=== PATIENT | female | born 1940 | race Two or more races ===

== ENCOUNTER 2016-09-03 19:15 | Inpatient (IN) | payer MEDICARE ==
--- NOTE | 2016-09-03 19:32 | ER Document Report ---
ED Medical Screen (RME) - General Stated Complaint: FEVER,CHEST PAIN Notes: 75 yo female c/o midsternal chest pain, short of breath x 3 days, worse today. + fever 102 toay. + cough + laryngitis + HTN, + COPD no DM, nonsmoker, no cardiac hx PCM - Dr Kent TRAVEL OUTSIDE OF THE [place] IN LAST 30 DAYS: No - Related Data Allergies/Adverse Reactions: Penicillins Allergy (Verified 06/07/16 18:02) Past Medical History - Past Medical History Cardiac Medical History: Reports: Hx Hypertension Denies: Hx Coronary Artery Disease, Hx Heart Attack Pulmonary Medical History: Reports: Hx COPD, Hx Pneumonia Denies: Hx Asthma, Hx Bronchitis, Hx Tuberculosis Neurological Medical History: Denies: Hx Cerebrovascular Accident, Hx Seizures Musculoskeltal Medical History: Reports Hx Arthritis Psychiatric Medical History: Denies: Hx Depression Past Surgical History: Reports: Hx Cholecystectomy, Hx Hysterectomy - Immunizations Hx Diphtheria, Pertussis, Tetanus Vaccination: No
[2016-09-03] MEDS ORDERED: ASPIRIN 81 MG TABLET, CHEWABLE PO ONE (19:33)
[2016-09-03 20:27] LABS: ABSOLUTE EOSINOPHILS # (AUTO) 0.2 10^3/uL (0.0-0.6); ABSOLUTE LYMPHOCYTES (AUTO) 1.4 10^3/uL (0.5-4.7); ABSOLUTE MONOCYTES (AUTO) 0.9 10^3/uL (0.1-1.4); ABSOLUTE NEUT (AUTO) 5.9 10^3/uL (1.7-8.2); BASOPHILS % (AUTO) 0.5 % (0-2); EOSINOPHILS % (AUTO) 1.8 % (0-6); HEMATOCRIT 39.9 % (36.0-47.0); HEMOGLOBIN 13.6 g/dL (12.0-15.5); HGB HCT DIFFERENCE 0.9; LYMPHOCYTES % (AUTO) 16.7 % (13-45); MEAN CORPUSCULAR HGB CONC 34.2 g/dL (32.0-36.0); MEAN CORPUSCULAR VOLUME 88 fl (80-97); MONOCYTES % (AUTO) 10.3 % (3-13); RED BLOOD COUNT 4.55 10^6/uL (3.72-5.28); RED CELL DISTRIBUTION WIDTH 14.6 % (11.5-14.0); SEGMENTED NEUTROPHILS % (AUTO) 70.7 % (42-78); WHITE BLOOD COUNT 8.3 10^3/uL (4.0-10.5)
[2016-09-03 20:39] LABS: APPEARANCE,URINE CLEAR; BILIRUBIN,URINE NEGATIVE (NEGATIVE); GLUCOSE, URINE NEGATIVE (NEGATIVE); KETONES,URINE NEGATIVE (NEGATIVE); LEUKOCYTE ESTERASE,URINE NEGATIVE (NEGATIVE); NITRITE,URINE NEGATIVE (NEGATIVE); PROTEIN,URINE NEGATIVE (NEGATIVE); URINE SPECIFIC GRAVITY 1.013
[2016-09-03 20:50] LABS: ALANINE AMINOTRANSFERASE 20 U/L (9-52); ALBUMIN 3.8 g/dL (3.5-5.0); ALKALINE PHOSPHATASE 109 U/L (38-126); ANION GAP 11 (5-19); ASPARTATE AMINO TRANSFERASE 17 U/L (14-36); BILIRUBIN,TOTAL 0.5 mg/dL (0.2-1.3); BLOOD UREA NITROGEN 11 mg/dL (7-20); CALCIUM 9.3 mg/dL (8.4-10.2); CARBON DIOXIDE 26 mmol/L (22-30); CHLORIDE 103 mmol/L (98-107); CREATINE KINASE 34 U/L (30-135); GLUCOSE 93 mg/dL (75-110); LIPASE 56.6 U/L (23-300); POTASSIUM 3.7 mmol/L (3.6-5.0); SODIUM 140.1 mmol/L (137-145); TOTAL PROTEIN 6.5 g/dL (6.3-8.2)
[2016-09-03 21:09] LABS: CREATINE KINASE MB 0.38 ng/mL (<4.55)
[2016-09-03 21:15] LABS: TROPONIN I < 0.012 ng/mL
--- NOTE | 2016-09-03 21:40 | EKG REPORT ---
SEVERITY:- NORMAL ECG - SINUS RHYTHM : Confirmed by: Rob Mace 03-Sep-2016 21:39:37
[2016-09-04] MEDS ORDERED: CEFTRIAXONE 1 GM/D5W RTU 50 ML IV ONE (01:24)
[2016-09-04] MEDS ORDERED: NORMAL SALINE 1000 ML 1,000 ML IV ONE (01:25)
[2016-09-04] MEDS ORDERED: LEVOFLOXACIN 750 MG/D5W RTU 150 ML IV ONE (01:25)
--- NOTE | 2016-09-04 01:35 | ER Document Report ---
ED General - General Chief Complaint: Fever Stated Complaint: FEVER, cough Notes: Patient is a 75-year-old female with past medical history of COPD who presents with 4 days of fever, cough, sputum production and increasing shortness of breath. States that she went to the sick clinic at her primary care doctor's office today was sent to the emergency room based on her overall appearance. States she's had similar symptoms in the past when she has had pneumonia. She has had one episode of nonbilious vomiting at home but has otherwise been able to tolerate oral intake. She denies any focal abdominal pain. She does not normally use home oxygen. She is not using to treat her symptoms and has not noted anything worsen her symptoms. Multiple sick contacts. TRAVEL OUTSIDE OF THE [place] IN LAST 30 DAYS: No - Related Data Allergies/Adverse Reactions: Penicillins Allergy (Verified 09/03/16 19:33) Past Medical History - General Information source: Patient, Relative - Social History Smoking Status: Never Smoker Chew tobacco use (# tins/day): No Frequency of alcohol use: None Drug Abuse: None Lives with: Family Family History: Reviewed & Not Pertinent Patient has suicidal ideation: No Patient has homicidal ideation: No - Past Medical History Cardiac Medical History: Reports: Hx Hypertension Denies: Hx Coronary Artery Disease, Hx Heart Attack Pulmonary Medical History: Reports: Hx COPD, Hx Pneumonia Denies: Hx Asthma, Hx Bronchitis, Hx Tuberculosis Neurological Medical History: Denies: Hx Cerebrovascular Accident, Hx Seizures Renal/ Medical History: Denies: Hx Peritoneal Dialysis Musculoskeltal Medical History: Reports Hx Arthritis Psychiatric Medical History: Denies: Hx Depression Past Surgical History: Reports: Hx Cholecystectomy, Hx Hysterectomy - Immunizations Hx Diphtheria, Pertussis, Tetanus Vaccination: No Hx Pneumococcal Vaccination: 12/27/12 Review of Systems - Review of Systems Notes: Constitutional: Positive for fever. HENT: Negative for sore throat. Eyes: Negative for visual changes. Cardiovascular: Negative for chest pain. Respiratory: Positive for shortness of breath and cough Gastrointestinal: Negative for abdominal pain, positive for vomiting Genitourinary: Negative for dysuria. Musculoskeletal: Negative for back pain. Skin: Negative for rash. Neurological: Negative for headaches, weakness or numbness. 10 point ROS negative except as marked above and in HPI. Physical Exam - Vital signs Vitals: Temp Pulse Resp BP Pulse Ox 99.7 F 88 22 H 148/81 H 95 03/08/17 19:30 09/03/16 19:30 09/03/16 19:30 09/03/16 19:30 09/03/16 19:30 Interpretation: Tachypneic Notes: PHYSICAL EXAMINATION: GENERAL: Mildly ill in appearance but in no acute distress. HEAD: Atraumatic, normocephalic. EYES: Pupils equal round and reactive to light, extraocular movements intact, sclera anicteric, conjunctiva are normal. ENT: nares patent, oropharynx clear without exudates. Moderately dry mucous membranes. NECK: Normal range of motion, supple without lymphadenopathy, no nuchal rigidity LUNGS: Diminished breath sounds left base. No respiratory distress. Appropriate air movement bilaterally. No wheezing. HEART: Regular rate and rhythm without murmurs ABDOMEN: Soft, nontender, normoactive bowel sounds. No guarding, no rebound. No masses appreciated. EXTREMITIES: Normal range of motion, no pitting or edema. No cyanosis. NEUROLOGICAL: No focal neurological deficits. Moves all extremities spontaneously and on command. PSYCH: Normal mood, normal affect. SKIN: Warm, Dry, normal turgor, no rashes or lesions noted. Course - Re-evaluation Re-evalutation: 09/04/16 01:32 Patient presents with signs and symptoms that are consistent with likely community-acquired pneumonia. Patient has diminished breath sounds at the left lower base, has had mild tachypnea as well as cough at home. She is also had a fever up to 102.2. Although chest x-ray is clear here diagnostically her presentation appears the most consistent with a pneumonia versus influenza. Influenza testing is pending at this time. She is not have any nuchal rigidity on exam, no altered mental status although does complain of a mild headache. Given the absence of any significant neck pain, full neck range of motion, 4 days of symptoms, and a normal mental status a do not suspect an acute encephalitis or bacterial meningitis. Patient's urinalysis is clear. She does not have any skin findings to suggest a cellulitis as a source of her fever. Patient could alternatively have a community-acquired virus although given her reported fever to 102.2 as well as her overall mildly ill appearance, I believe this to be a diagnosis of occlusion. Patient has been started empirically on ceftriaxone and levofloxacin. I had discussed this case with the patient's primary care doctor Dr. Ayers will admit the patient - Vital Signs Vital signs: Temp Pulse Resp BP Pulse Ox 99.7 F 88 18 149/61 H 95 09/03/16 19:30 09/03/16 19:30 09/04/16 03:01 09/04/16 03:01 09/04/16 03:01 - Laboratory Result Diagrams: 09/03/16 20:05 09/03/16 20:05 Laboratory results interpreted by me: 09/03/16 09/03/16 20:05 20:05 RDW 14.6 H Urine Blood SMALL H Urine Urobilinogen 2.0 H - Diagnostic Test Radiology reviewed: Image reviewed, Reports reviewed Radiology results interpreted by me: 09/04/16 01:32 Chest x-ray: No acute infiltrate - EKG Interpretation by Me Additional EKG results interpreted by me: 09/04/16 01:34 Normal sinus rhythm. Rate 89. No ST elevations or depressions. QTC 421 Discharge - Discharge Clinical Impression: Fever Qualifiers: Fever type: unspecified Qualified Code(s): R50.9 - Fever, unspecified Pneumonia Qualifiers: Pneumonia type: due to unspecified organism Laterality: unspecified laterality Lung location: unspecified part of lung Qualified Code(s): J18.9 - Pneumonia, unspecified organism Disposition: ADMITTED INPATIENT Admitting Provider: [facility] Admitted: Telemetry
[2016-09-04] MEDS ORDERED: KETOROLAC TROMETHAMINE INJ/PF 30 MG/1 ML SDV IV ONE (02:37)
[2016-09-04 06:29] LABS: CREATINE KINASE MB < 0.22 ng/mL (<4.55); TROPONIN I < 0.012 ng/mL
[2016-09-04 06:41] LABS: THYROID STIMULATING HORMONE 3.63 uIU/mL (0.47-4.68)
[2016-09-04] MEDS: ENOXAPARIN SODIUM INJ 40 MG/0.4 ML DISP.SYRIN SUBCUT SCH (09:18)
[2016-09-04] MEDS: NORMAL SALINE 1000 ML 1,000 ML IV PRN ×2 (09:30→22:00)
[2016-09-04] MEDS: ALBUTEROL SULFATE 0.083% NEB 2.5 MG/3 ML AMPUL NEB PRN (10:59)
[2016-09-04 12:32] LABS: CREATINE KINASE MB 0.32 ng/mL (<4.55)
[2016-09-04 12:34] LABS: TROPONIN I < 0.012 ng/mL
[2016-09-04] MEDS ORDERED: ACETAMINOPHEN 325 MG TABLET PO PRN (12:35)
[2016-09-04] MEDS ORDERED: BUTALB/ACETAMINOPHEN/CAFFEINE 1 TAB EACH PO PRN (14:27)
[2016-09-04] MEDS ORDERED: LISINOPRIL 10 MG TABLET PO ONE (15:00)
[2016-09-04] MEDS: ALBUTEROL SULFATE 0.083% NEB 2.5 MG/3 ML AMPUL NEB SCH ×4 (17:15→23:54)
[2016-09-04] MEDS: METHYLPREDNISOLONE INJ 125 MG/2 ML SDV IV SCH (18:12)
[2016-09-04 18:27] LABS: CREATINE KINASE MB 0.36 ng/mL (<4.55)
[2016-09-04 18:28] LABS: TROPONIN I < 0.012 ng/mL
[2016-09-04 18:45] LABS: ARTERIAL BLOOD BASE EXCESS 2.1 mmol/L
--- NOTE | 2016-09-04 19:14 | PDOC H&P ---
History of Present Illness Admission Date/PCP: 09/04/16 04:52 HIPOLITO MCKEON MD History of Present Illness: ALEJANDRO MINOR is a 75 year old female with history of COPD, she came to emergency room last night because of fever, cough, shortness of breath in the emergency room she was evaluated and after admission was advised. When I saw her on the floor she was audibly wheezing with shortness of breath and she was using accessory muscles of respiration to breathe a stat ABG was done on 2 L and it showed pH 7.4 PCO2 45, bicarbonate 27.4 this is consistent with a mixed acid-base disorder. Past Medical History Cardiac Medical History: Reports: Hypertension Pulmonary Medical History: Reports: Chronic Obstructive Pulmonary Disease (COPD) , Pneumonia Musculoskeltal Medical History: Reports: Arthritis Past Surgical History Past Surgical History: Reports: Cholecystectomy, Hysterectomy Social History Lives with: Family Smoking Status: Former Smoker Last Time Smoked: September 06, 2015 Frequency of Alcohol Use: None Hx Recreational Drug Use: No Drugs: None Hx Prescription Drug Abuse: No Family History Family History: Reviewed & Not Pertinent Parental Family History Reviewed: Yes Children Family History Reviewed: Yes Sibling(s) Family History Reviewed.: Yes Medication/Allergy Home Medications: Lisinopril [Prinivil 40 mg Tablet] 40 mg PO DAILY 09/04/16 Allergies/Adverse Reactions: Penicillins Allergy (Verified 09/03/16 19:33) Review of Systems Constitutional: PRESENT: fever(s) Eyes: ABSENT: visual disturbances Ears: ABSENT: hearing changes Cardiovascular: PRESENT: dyspnea on exertion Respiratory: ABSENT: cough, hemoptysis Gastrointestinal: ABSENT: abdominal pain, constipation, diarrhea, hematemesis, hematochezia, nausea, vomiting Genitourinary: ABSENT: dysuria, hematuria Musculoskeletal: ABSENT: joint swelling Integumentary: ABSENT: rash, wounds Neurological: ABSENT: abnormal gait, abnormal speech, confusion, dizziness, focal weakness, syncope Psychiatric: ABSENT: anxiety, depression, homidical ideation, suicidal ideation Endocrine: ABSENT: cold intolerance, heat intolerance, menstrual abnormalities, polydipsia, polyuria Hematologic/Lymphatic: ABSENT: easy bleeding, easy bruising, lymphadenopathy Physical Exam Vital Signs: Temp Pulse Resp BP Pulse Ox 97.6 F 84 20 138/68 H 97 09/04/16 15:12 09/04/16 17:15 09/04/16 17:15 09/04/16 15:12 09/04/16 17:15 Intake & Output 09/03/16 09/04/16 09/05/16 06:59 06:59 06:59 Intake Total 1039 Balance 1039 Weight 64.5 kg General appearance: PRESENT: severe distress Head exam: PRESENT: atraumatic, normocephalic Eye exam: PRESENT: conjunctiva pink, EOMI, PERRLA Ear exam: PRESENT: normal external ear exam Mouth exam: PRESENT: moist, tongue midline Neck exam: PRESENT: full ROM Respiratory exam: PRESENT: accessory muscle use, wheezes Cardiovascular exam: PRESENT: RRR Pulses: PRESENT: normal dorsalis pedis pul, +2 pedal pulses bilateral Vascular exam: PRESENT: normal capillary refill GI/Abdominal exam: PRESENT: normal bowel sounds, soft Rectal exam: PRESENT: deferred Neurological exam: PRESENT: alert, awake, oriented to person, oriented to place , oriented to time, oriented to situation, CN II-XII grossly intact Psychiatric exam: PRESENT: appropriate affect, normal mood. ABSENT: homicidal ideation, suicidal ideation Skin exam: PRESENT: dry, intact, warm Results Laboratory Results: 09/04/16 09/04/16 05:30 18:09 Carbonic Acid 1.36 H HCO3/H2CO3 Ratio 20:1 ABG pH 7.40 ABG pCO2 45.3 H ABG pO2 81.6 ABG HCO3 27.4 H ABG O2 Saturation 96.0 ABG Base Excess 2.1 FiO2 2L TSH 3.63 Free T4 1.48 09/04/16 09/04/16 09/04/16 05:30 05:30 11:30 Creatine Kinase 34 32 CK-MB (CK-2) < 0.22 Troponin I < 0.012 09/04/16 09/04/16 09/04/16 11:30 17:25 17:25 Creatine Kinase 32 CK-MB (CK-2) 0.32 0.36 Troponin I < 0.012 < 0.012 Impressions: Chest X-Ray 09/03/16 19:34 IMPRESSION: No significant interval change. No acute findings. Other findings as noted above Chest CT 09/04/16 00:00 IMPRESSION: Multiple segmental and subsegmental bronchi show debris-mucous plugging in the right lower lobe. Small areas of parenchymal atelectasis- airspace disease are present in the posterior basilar segments. Some scattered ground-glass markings are scattered in each lung. No dense consolidation. Trace right effusion. Assessment & Plan - Diagnosis (1) Acute exacerbation of chronic obstructive pulmonary disease (COPD) Plan: Patient is obviously in respiratory distress with shortness of breath wheezing she also have fever does suggest infection, though the chest x-ray and CT chest was negative for pneumonia, she will be treated with antibiotic, IV Solu-Medrol and also bronchodilators
[2016-09-05] MEDS: METHYLPREDNISOLONE INJ 125 MG/2 ML SDV IV SCH ×3 (01:31→17:35)
[2016-09-05] MEDS ORDERED: DILTIAZEM HCL/D5W 125 MG/125 ML RTUINJ IV ONE (02:17)
[2016-09-05] MEDS: ALBUTEROL SULFATE 0.083% NEB 2.5 MG/3 ML AMPUL NEB SCH ×6 (02:28→20:29)
[2016-09-05] MEDS ORDERED: DILTIAZEM HCL/D5W 125 MG/125 ML RTUINJ IV PRN (02:43)
[2016-09-05] MEDS: MAG HYDROX/AL HYDROX/SIMETH SUSP 30 ML UDCUP PO PRN ×4 (02:51→23:49)
[2016-09-05 05:58] LABS: ABSOLUTE LYMPHOCYTES (AUTO) 0.4 10^3/uL (0.5-4.7); ABSOLUTE MONOCYTES (AUTO) 0.1 10^3/uL (0.1-1.4); ABSOLUTE NEUT (AUTO) 6.4 10^3/uL (1.7-8.2); HEMATOCRIT 38.7 % (36.0-47.0); HEMOGLOBIN 12.9 g/dL (12.0-15.5); LYMPHOCYTES % (AUTO) 5.3 % (13-45); MEAN CORPUSCULAR HEMOGLOBIN 29.4 pg (27.0-33.4); MEAN CORPUSCULAR HGB CONC 33.4 g/dL (32.0-36.0); MEAN CORPUSCULAR VOLUME 88 fl (80-97); MONOCYTES % (AUTO) 1.3 % (3-13); RED CELL DISTRIBUTION WIDTH 14.7 % (11.5-14.0); SEGMENTED NEUTROPHILS % (AUTO) 93.4 % (42-78); WHITE BLOOD COUNT 6.8 10^3/uL (4.0-10.5)
[2016-09-05 06:18] LABS: ALANINE AMINOTRANSFERASE 24 U/L (9-52); ALBUMIN 3.3 g/dL (3.5-5.0); ALKALINE PHOSPHATASE 97 U/L (38-126); ANION GAP 11 (5-19); ASPARTATE AMINO TRANSFERASE 15 U/L (14-36); BILIRUBIN,TOTAL 0.3 mg/dL (0.2-1.3); BLOOD UREA NITROGEN 9 mg/dL (7-20); CALCIUM 9.5 mg/dL (8.4-10.2); CARBON DIOXIDE 22 mmol/L (22-30); CHLORIDE 109 mmol/L (98-107); CREATININE RESULT 0.52 mg/dL (0.52-1.25); GLUCOSE 191 mg/dL (75-110); POTASSIUM 3.8 mmol/L (3.6-5.0); SODIUM 142.1 mmol/L (137-145)
[2016-09-05] MEDS: LISINOPRIL 10 MG TABLET PO SCH (09:09)
[2016-09-05] MEDS: LEVOFLOXACIN 750 MG/D5W RTU 750 MG/150 ML RTUPB IV SCH (09:09)
[2016-09-05] MEDS: ENOXAPARIN SODIUM INJ 40 MG/0.4 ML DISP.SYRIN SUBCUT SCH (09:14)
--- NOTE | 2016-09-05 19:37 | EKG REPORT ---
SEVERITY:- ABNORMAL ECG - ATRIAL FIBRILLATION, V-RATE 97-155 REPOL ABNRM SUGGESTS ISCHEMIA, ANTERIOR LEADS : Confirmed by: Rob Mace 05-Sep-2016 19:37:04
[2016-09-05] MEDS ORDERED: LANSOPRAZOLE 30 MG TAB.RAP.DR PO ONE (21:00)
[2016-09-05] MEDS: DILTIAZEM HCL 60 MG TABLET PO SCH (21:04)
--- NOTE | 2016-09-05 21:29 | PDOC PROGRESS REPORT ---
Subjective Progress Note for:: 09/05/16 Subjective:: Patient was admitted for acute COPD exacerbation, she developed paroxysmal atrial fibrillation and she was started on Cardizem infusion, she is presently sinus rhythm. The chads2 score is 2, she will need long-term anticoagulant, a 2D echo will be ordered Physical Exam Vital Signs: Temp Pulse Resp BP Pulse Ox 98.2 F 84 18 114/92 H 100 09/05/16 20:36 09/05/16 20:36 09/05/16 16:16 09/05/16 20:31 09/05/16 20:36 Intake & Output 09/04/16 09/05/16 09/06/16 06:59 06:59 06:59 Intake Total 1477 Balance 1477 General appearance: PRESENT: no acute distress Eye exam: PRESENT: PERRLA Respiratory exam: PRESENT: wheezes Cardiovascular exam: PRESENT: +S1, +S2 GI/Abdominal exam: PRESENT: soft Neurological exam: PRESENT: alert, CN II-XII grossly intact Results Impressions: Chest X-Ray 09/03/16 19:34 IMPRESSION: No significant interval change. No acute findings. Other findings as noted above Chest CT 09/04/16 00:00 IMPRESSION: Multiple segmental and subsegmental bronchi show debris-mucous plugging in the right lower lobe. Small areas of parenchymal atelectasis- airspace disease are present in the posterior basilar segments. Some scattered ground-glass markings are scattered in each lung. No dense consolidation. Trace right effusion. Assessment & Plan - Diagnosis (1) Acute exacerbation of chronic obstructive pulmonary disease (COPD) Is this a current diagnosis for this admission?: YesPlan: Continue present treatment (2) Paroxysmal atrial fibrillation Is this a current diagnosis for this admission?: YesPlan: Stop Cardizem infusion start p.o. Cardizem, anticoagulant education
[2016-09-06] MEDS: ALBUTEROL SULFATE 0.083% NEB 2.5 MG/3 ML AMPUL NEB SCH ×6 (00:01→20:20)
[2016-09-06] MEDS: METHYLPREDNISOLONE INJ 125 MG/2 ML SDV IV SCH ×3 (01:47→17:23)
[2016-09-06] MEDS: NORMAL SALINE 1000 ML 1,000 ML IV PRN ×2 (04:01→19:20)
[2016-09-06 05:11] LABS: ALANINE AMINOTRANSFERASE 21 U/L (9-52); ALBUMIN 3.1 g/dL (3.5-5.0); ALKALINE PHOSPHATASE 87 U/L (38-126); ANION GAP 10 (5-19); ASPARTATE AMINO TRANSFERASE 17 U/L (14-36); BILIRUBIN,TOTAL 0.3 mg/dL (0.2-1.3); BLOOD UREA NITROGEN 16 mg/dL (7-20); CALCIUM 9.5 mg/dL (8.4-10.2); CARBON DIOXIDE 24 mmol/L (22-30); CHLORIDE 108 mmol/L (98-107); CREATININE RESULT 0.65 mg/dL (0.52-1.25); GLUCOSE 184 mg/dL (75-110); SODIUM 142.4 mmol/L (137-145); TOTAL PROTEIN 5.6 g/dL (6.3-8.2)
[2016-09-06 05:45] LABS: HEMOGLOBIN 11.4 g/dL (12.0-15.5); HGB HCT DIFFERENCE 0.2; MEAN CORPUSCULAR HEMOGLOBIN 29.3 pg (27.0-33.4); MEAN CORPUSCULAR HGB CONC 33.4 g/dL (32.0-36.0); MEAN CORPUSCULAR VOLUME 88 fl (80-97); RED BLOOD COUNT 3.87 10^6/uL (3.72-5.28); RED CELL DISTRIBUTION WIDTH 14.7 % (11.5-14.0)
[2016-09-06 05:48] LABS: BASOPHILS % (MANUAL) 0 % (0-2); EOSINOPHILS % (MANUAL) 0 % (0-6); LYMPHOCYTES % (MANUAL) 2 % (13-45); TOTAL CELLS COUNTED 100
[2016-09-06 05:49] LABS: ANISOCYTOSIS SLIGHT; OVALOCYTES SLIGHT; POIKILOCYTOSIS SLIGHT; POLYCHROMASIA SLIGHT; TOXIC GRANULATION SLIGHT
[2016-09-06 05:50] LABS: WHITE BLOOD COUNT 17.5 10^3/uL (4.0-10.5)
[2016-09-06] MEDS: DILTIAZEM HCL 60 MG TABLET PO SCH ×3 (06:10→21:38)
[2016-09-06] MEDS: LEVOFLOXACIN 750 MG/D5W RTU 750 MG/150 ML RTUPB IV SCH (09:04)
[2016-09-06] MEDS: ENOXAPARIN SODIUM INJ 40 MG/0.4 ML DISP.SYRIN SUBCUT SCH (09:05)
[2016-09-06] MEDS: LISINOPRIL 10 MG TABLET PO SCH (09:06)
[2016-09-06] MEDS: LANSOPRAZOLE 30 MG TAB.RAP.DR PO SCH ×2 (09:07→21:38)
[2016-09-06] MEDS: ALBUTEROL SULFATE 0.083% NEB 2.5 MG/3 ML AMPUL NEB PRN (14:32)
--- NOTE | 2016-09-06 15:58 | PDOC PROGRESS REPORT ---
Subjective Progress Note for:: 09/06/16 Subjective:: Patient had episode of acute wheezing with comfort dog visit to her room earlier today. Wheezing has been improving post nebulizer treatment since incident. She denied any chest pain. She claimed that she has dogs at home. She remain on COPD exacerbation treatment with IV Solu-Medrol and bronchodilators therapy. Remain on IV Levofloxacin. No nausea or vomiting. No abdominal pain. Tolerating oral feeding and intake remain fair. Physical Exam Vital Signs: Temp Pulse Resp BP Pulse Ox 97.9 F 91 24 H 105/50 L 93 09/06/16 11:08 09/06/16 14:32 09/06/16 14:32 09/06/16 11:08 09/06/16 14:32 Intake & Output 09/05/16 09/06/16 09/07/16 06:59 06:59 07:59 Intake Total 2521 Balance 2521 Weight 67.4 kg General appearance: PRESENT: cooperative, mild distress, obese Head exam: PRESENT: atraumatic, normocephalic Eye exam: PRESENT: conjunctiva pink, EOMI, PERRLA. ABSENT: scleral icterus Mouth exam: PRESENT: moist Respiratory exam: PRESENT: decreased breath sounds, rhonchi, wheezes Cardiovascular exam: PRESENT: RRR. ABSENT: diastolic murmur, rubs, systolic murmur Vascular exam: PRESENT: normal capillary refill, pallor GI/Abdominal exam: PRESENT: normal bowel sounds, soft. ABSENT: distended, guarding, mass, organolmegaly, rebound, tenderness Musculoskeletal exam: PRESENT: deformity - related to arthritis joint involvement Neurological exam: PRESENT: alert, awake, oriented to person, oriented to place , oriented to time, oriented to situation, CN II-XII grossly intact. ABSENT: motor sensory deficit Psychiatric exam: PRESENT: appropriate affect, normal mood. ABSENT: homicidal ideation, suicidal ideation Skin exam: PRESENT: dry, warm Results Laboratory Results: 09/06/16 04:39 09/06/16 04:39 09/06/16 09/06/16 04:39 04:39 WBC 17.5 H D RBC 3.87 Hgb 11.4 L Hct 34.0 L MCV 88 MCH 29.3 MCHC 33.4 RDW 14.7 H Plt Count 299 Seg Neutrophils % Not Reportable Lymphocytes % Not Reportable Monocytes % Not Reportable Eosinophils % Not Reportable Basophils % Not Reportable Absolute Neutrophils Not Reportable Absolute Lymphocytes Not Reportable Absolute Monocytes Not Reportable Absolute Eosinophils Not Reportable Absolute Basophils Not Reportable Sodium 142.4 Potassium 4.0 Chloride 108 H Carbon Dioxide 24 Anion Gap 10 BUN 16 Creatinine 0.65 Est GFR ( Amer) > 60 Est GFR (Non-Af Amer) > 60 Glucose 184 H Calcium 9.5 Total Bilirubin 0.3 AST 17 ALT 21 Alkaline Phosphatase 87 Total Protein 5.6 L Albumin 3.1 L Impressions: Chest X-Ray 09/03/16 19:34 IMPRESSION: No significant interval change. No acute findings. Other findings as noted above Chest CT 09/04/16 00:00 IMPRESSION: Multiple segmental and subsegmental bronchi show debris-mucous plugging in the right lower lobe. Small areas of parenchymal atelectasis- airspace disease are present in the posterior basilar segments. Some scattered ground-glass markings are scattered in each lung. No dense consolidation. Trace right effusion. Assessment & Plan - Diagnosis (1) Acute exacerbation of chronic obstructive pulmonary disease (COPD) Is this a current diagnosis for this admission?: YesPlan: See covering attending physician orders. (2) Paroxysmal atrial fibrillation Is this a current diagnosis for this admission?: YesPlan: See covering attending physician orders. (3) Lobar pneumonia, unspecified organism Is this a current diagnosis for this admission?: YesPlan: See covering attending physician orders. - Time Time Spent with patient: 25-34 minutes Medications reviewed and adjusted accordingly: Yes Anticipated discharge: Home with Homehealth Within: Other - Inpatient Certification Based on my medical assessment, after consideration of the patient's comorbidities, presenting symptoms, or acuity I expect that the services needed warrant INPATIENT care.: Yes I certify that my determination is in accordance with my understanding of Medicare's requirements for reasonable and necessary INPATIENT services [42 CFR 412.3e].: Yes Medical Necessity: Need Close Monitoring Due to Risk of Patient Decompensation, Need For IV Fluids, Need For Continuous Telemetry Monitoring, Need for Nebulizer Therapy and Monitoring of Response, Need for IV Antibiotics, Risk of Complication if Not Cared For in Hospital Post Hospital Care: D/C Clinical Rehab Specialist Documentation - Plan Summary Plan Summary: See covering attending physician orders.
[2016-09-07] MEDS: ALBUTEROL SULFATE 0.083% NEB 2.5 MG/3 ML AMPUL NEB SCH ×6 (00:09→20:04)
[2016-09-07 05:36] LABS: HEMATOCRIT 35.9 % (36.0-47.0); HEMOGLOBIN 11.9 g/dL (12.0-15.5); HGB HCT DIFFERENCE -0.2; MEAN CORPUSCULAR HEMOGLOBIN 29.1 pg (27.0-33.4); MEAN CORPUSCULAR HGB CONC 33.3 g/dL (32.0-36.0); MEAN CORPUSCULAR VOLUME 88 fl (80-97); RED CELL DISTRIBUTION WIDTH 14.5 % (11.5-14.0); WHITE BLOOD COUNT 17.6 10^3/uL (4.0-10.5)
[2016-09-07] MEDS: DILTIAZEM HCL 60 MG TABLET PO SCH ×3 (05:37→21:17)
[2016-09-07 06:05] LABS: BAND NEUTROPHILS % (MANUAL) 3 % (3-5); BASOPHILS % (MANUAL) 0 % (0-2); EOSINOPHILS % (MANUAL) 0 % (0-6); LYMPHOCYTES % (MANUAL) 6 % (13-45); TOTAL CELLS COUNTED 100
[2016-09-07 06:08] LABS: ALANINE AMINOTRANSFERASE 27 U/L (9-52); ALBUMIN 3.1 g/dL (3.5-5.0); ALKALINE PHOSPHATASE 84 U/L (38-126); ANION GAP 9 (5-19); ASPARTATE AMINO TRANSFERASE 19 U/L (14-36); BILIRUBIN,TOTAL 0.2 mg/dL (0.2-1.3); BLOOD UREA NITROGEN 21 mg/dL (7-20); CALCIUM 9.3 mg/dL (8.4-10.2); CARBON DIOXIDE 24 mmol/L (22-30); CHLORIDE 108 mmol/L (98-107); CREATININE RESULT 0.75 mg/dL (0.52-1.25); GLUCOSE 154 mg/dL (75-110); POTASSIUM 4.4 mmol/L (3.6-5.0); SODIUM 140.8 mmol/L (137-145); TOTAL PROTEIN 3.5 g/dL (6.3-8.2)
[2016-09-07 06:14] LABS: ANISOCYTOSIS SLIGHT; OVALOCYTES SLIGHT; POIKILOCYTOSIS SLIGHT; POLYCHROMASIA SLIGHT; TOXIC GRANULATION 1+
[2016-09-07] MEDS: ENOXAPARIN SODIUM INJ 40 MG/0.4 ML DISP.SYRIN SUBCUT SCH (08:50)
[2016-09-07] MEDS: LEVOFLOXACIN 750 MG/D5W RTU 750 MG/150 ML RTUPB IV SCH (09:32)
[2016-09-07] MEDS: LANSOPRAZOLE 30 MG TAB.RAP.DR PO SCH ×2 (09:32→21:18)
[2016-09-07] MEDS: LISINOPRIL 10 MG TABLET PO SCH (09:32)
[2016-09-07] MEDS: METHYLPREDNISOLONE INJ 125 MG/2 ML SDV IV SCH ×2 (09:32→17:38)
--- NOTE | 2016-09-07 11:31 | PDOC PROGRESS REPORT ---
Subjective Progress Note for:: 09/07/16 Subjective:: Patient reported some improvement in her breathing with less wheezing at rest. There is persistence of exertional dyspnea. She remain on COPD exacerbation treatment with IV Solu-Medrol and bronchodilators therapy. No nausea or vomiting. No abdominal pain. Tolerating oral feeding and intake remain fair. No reported fever or chills. Remain on IV Levofloxacin. Physical Exam Vital Signs: Temp Pulse Resp BP Pulse Ox 97.7 F 79 18 126/65 H 94 09/07/16 07:15 09/07/16 07:39 09/07/16 07:39 09/07/16 07:15 09/07/16 07:39 Intake & Output 09/06/16 09/07/16 09/08/16 05:59 06:59 06:59 Intake Total Balance Weight Results Laboratory Results: 09/07/16 05:00 09/07/16 05:00 09/07/16 09/07/16 05:00 05:00 WBC 17.6 H RBC 4.10 Hgb 11.9 L Hct 35.9 L MCV 88 MCH 29.1 MCHC 33.3 RDW 14.5 H Plt Count 346 Seg Neutrophils % Not Reportable Lymphocytes % Not Reportable Monocytes % Not Reportable Eosinophils % Not Reportable Basophils % Not Reportable Absolute Neutrophils Not Reportable Absolute Lymphocytes Not Reportable Absolute Monocytes Not Reportable Absolute Eosinophils Not Reportable Absolute Basophils Not Reportable Sodium 140.8 Potassium 4.4 Chloride 108 H Carbon Dioxide 24 Anion Gap 9 BUN 21 H Creatinine 0.75 Est GFR ( Amer) > 60 Est GFR (Non-Af Amer) > 60 Glucose 154 H Calcium 9.3 Total Bilirubin 0.2 AST 19 ALT 27 Alkaline Phosphatase 84 Total Protein 3.5 L Albumin 3.1 L Impressions: Chest X-Ray 09/03/16 19:34 IMPRESSION: No significant interval change. No acute findings. Other findings as noted above Chest CT 09/04/16 00:00 IMPRESSION: Multiple segmental and subsegmental bronchi show debris-mucous plugging in the right lower lobe. Small areas of parenchymal atelectasis- airspace disease are present in the posterior basilar segments. Some scattered ground-glass markings are scattered in each lung. No dense consolidation. Trace right effusion. Assessment & Plan - Diagnosis (1) Acute exacerbation of chronic obstructive pulmonary disease (COPD) Is this a current diagnosis for this admission?: YesPlan: See covering attending physician orders. (2) Paroxysmal atrial fibrillation Is this a current diagnosis for this admission?: YesPlan: See covering attending physician orders. (3) Lobar pneumonia, unspecified organism Is this a current diagnosis for this admission?: YesPlan: See covering attending physician orders. - Time Time Spent with patient: 25-34 minutes Medications reviewed and adjusted accordingly: Yes Anticipated discharge: Home with Homehealth Within: Other - Inpatient Certification Based on my medical assessment, after consideration of the patient's comorbidities, presenting symptoms, or acuity I expect that the services needed warrant INPATIENT care.: Yes I certify that my determination is in accordance with my understanding of Medicare's requirements for reasonable and necessary INPATIENT services [42 CFR 412.3e].: Yes Medical Necessity: Need Close Monitoring Due to Risk of Patient Decompensation, Need For Continuous Telemetry Monitoring, Need for Nebulizer Therapy and Monitoring of Response, Need for IV Antibiotics, Risk of Complication if Not Cared For in Hospital Post Hospital Care: D/C Director Of [facility] Documentation - Plan Summary Plan Summary: See covering attending physician orders.
[2016-09-07] MEDS: NORMAL SALINE 1000 ML 1,000 ML IV PRN (11:42)
[2016-09-08] MEDS: ALBUTEROL SULFATE 0.083% NEB 2.5 MG/3 ML AMPUL NEB SCH ×6 (00:17→19:51)
[2016-09-08] MEDS: METHYLPREDNISOLONE INJ 125 MG/2 ML SDV IV SCH ×3 (01:31→17:12)
[2016-09-08] MEDS: NORMAL SALINE 1000 ML 1,000 ML IV PRN (02:35)
[2016-09-08] MEDS: ALBUTEROL SULFATE 0.083% NEB 2.5 MG/3 ML AMPUL NEB PRN (04:33)
[2016-09-08] MEDS: DILTIAZEM HCL 60 MG TABLET PO SCH ×3 (05:25→21:09)
[2016-09-08] MEDS: ENOXAPARIN SODIUM INJ 40 MG/0.4 ML DISP.SYRIN SUBCUT SCH (08:58)
[2016-09-08] MEDS: LEVOFLOXACIN 750 MG/D5W RTU 750 MG/150 ML RTUPB IV SCH (09:20)
[2016-09-08] MEDS: LISINOPRIL 10 MG TABLET PO SCH (09:21)
[2016-09-08] MEDS: LANSOPRAZOLE 30 MG TAB.RAP.DR PO SCH ×2 (09:21→21:08)
[2016-09-08] MEDS: MAG HYDROX/AL HYDROX/SIMETH SUSP 30 ML UDCUP PO PRN (15:45)
--- NOTE | 2016-09-08 18:02 | XCELERA REPORT ---
[address] [id number] Transthoracic Echocardiogram Report Name: ALEJANDRO MINOR Age: 75 yrs Gender: Female : 1940 Patient Status: Inpatient Patient Location: [id number]\A Study Date: 09/08/2016 04:12 PM Height: 59 in Weight: 153 lb BSA: 1.6 m2 Procedure: A two-dimensional transthoracic echocardiogram with color flow and Doppler was performed. Study Quality: Fair. Reason For Study: ATRIA FIBRILLATION. History: ATRIA FIBRILLATION. Ordering Physician: HIPOLITO MCKEON Performed By: Lyudmila Yost Interpretation Summary The left ventricle is normal in size. There is normal left ventricular wall thickness. LV EF is > than 65% Left ventricular systolic function is normal. Doppler measurements suggest normal left ventricular diastolic function The left ventricular wall motion is normal. There is no thrombus. The left atrial size is normal. There is no evidence of mitral valve prolapse. There is no mitral valve stenosis. There is a mild to moderate amount of mitral regurgitation There are 2 MR jets. There is no aortic valve stenosis There is no LVOT obstruction. No aortic regurgitation is present. There is no tricuspid stenosis. There is a mild amount of tricuspid regurgitation There is mild pulmonary hypertension by echo RVSP is 47 mm of Hg , with RA mean of 15. There is no pericardial effusion. MMode/2D Measurements \T\ Calculations RVDd: 2.7 cm LVIDd: 4.5 cm FS: 38.8 % Ao root diam: 2.4 cm IVSd: 0.98 cm LVIDs: 2.7 cm EDV(Teich): 91.4 ml LVPWd: 0.99 cm ESV(Teich): 28.0 ml Ao root area: 4.7 cm2 EF(Teich): 69.3 % LA dimension: 2.7 cm Doppler Measurements \T\ Calculations MV E max shelly: MV P1/2t max shelly: Ao V2 max: LV V1 max P.3 cm/sec 133.3 cm/sec 173.1 cm/sec 7.2 mmHg MV A max shelly: MV P1/2t: 70.1 msec Ao max PG: LV V1 max: 108.0 cm/sec 12.0 mmHg 133.9 cm/sec MV E/A: 1.2 MVA(P1/2t): 3.1 cm2 MV dec slope: 556.6 cm/sec2 MV dec time: 0.23 sec PA V2 max: TR max shelly: 101.2 cm/sec 281.2 cm/sec PA max PG: TR max P.6 mmHg 4.1 mmHg Left Ventricle The left ventricle is normal in size. There is normal left ventricular wall thickness. LV EF is > than 65%. Left ventricular systolic function is normal. Doppler measurements suggest normal left ventricular diastolic function. The left ventricular wall motion is normal. There is no thrombus. There is no ventricular septal defect visualized. Right Ventricle The right ventricle is grossly normal size. Atria The right atrium is normal. The left atrial size is normal. The interatrial septum is intact with no evidence for an atrial septal defect. Mitral Valve There is no evidence of mitral valve prolapse. There is no vegetation seen on the mitral valve. There is no mitral valve stenosis. There is a mild to moderate amount of mitral regurgitation. There are 2 MR jets. Aortic Valve The aortic valve is trileaflet. The aortic valve opens well. There is no aortic valvular vegetation. There is no aortic valve stenosis. There is no LVOT obstruction. No aortic regurgitation is present. Tricuspid Valve There is no tricuspid stenosis. There is a mild amount of tricuspid regurgitation. There is mild pulmonary hypertension by echo. RVSP is 47 mm of Hg , with RA mean of 15. Pulmonic Valve There is no pulmonic valvular stenosis. There is no pulmonic valvular regurgitation. Great Vessels The aortic root is normal size. Effusions There is no pericardial effusion. : HIPOLITO MCKEON > Mayda Urrutia
--- NOTE | 2016-09-08 18:23 | PDOC PROGRESS REPORT ---
Subjective Progress Note for:: 09/08/16 Subjective:: She was seen by the bedside, she is still wheezing, Physical Exam Vital Signs: Temp Pulse Resp BP Pulse Ox 97.9 F 83 18 143/75 H 93 09/08/16 15:16 09/08/16 15:43 09/08/16 15:43 09/08/16 15:16 09/08/16 15:43 Intake & Output 09/07/16 09/08/16 09/09/16 06:59 06:59 06:59 Intake Total 2813 1077 Balance 2813 1077 Weight 72.8 kg General appearance: PRESENT: mild distress Eye exam: PRESENT: PERRLA Respiratory exam: PRESENT: wheezes Cardiovascular exam: PRESENT: +S1, +S2 GI/Abdominal exam: PRESENT: soft Neurological exam: PRESENT: alert Results Laboratory Results: 09/07/16 05:00 09/07/16 05:00 Impressions: Chest X-Ray 09/03/16 19:34 IMPRESSION: No significant interval change. No acute findings. Other findings as noted above Chest CT 09/04/16 00:00 IMPRESSION: Multiple segmental and subsegmental bronchi show debris-mucous plugging in the right lower lobe. Small areas of parenchymal atelectasis- airspace disease are present in the posterior basilar segments. Some scattered ground-glass markings are scattered in each lung. No dense consolidation. Trace right effusion. Assessment & Plan - Diagnosis (1) Acute exacerbation of chronic obstructive pulmonary disease (COPD) Is this a current diagnosis for this admission?: YesPlan: Reduce Solu-Medrol (2) Paroxysmal atrial fibrillation Is this a current diagnosis for this admission?: Yes
[2016-09-09] MEDS: ALBUTEROL SULFATE 0.083% NEB 2.5 MG/3 ML AMPUL NEB SCH ×6 (00:01→20:20)
[2016-09-09] MEDS: METHYLPREDNISOLONE INJ 125 MG/2 ML SDV IV SCH ×3 (02:19→17:06)
[2016-09-09] MEDS: DILTIAZEM HCL 60 MG TABLET PO SCH ×3 (05:51→21:23)
[2016-09-09] MEDS: ENOXAPARIN SODIUM INJ 40 MG/0.4 ML DISP.SYRIN SUBCUT SCH (07:49)
[2016-09-09] MEDS: LEVOFLOXACIN 750 MG TABLET PO SCH (09:38)
[2016-09-09] MEDS: LANSOPRAZOLE 30 MG TAB.RAP.DR PO SCH ×2 (09:38→21:23)
[2016-09-09] MEDS: LISINOPRIL 10 MG TABLET PO SCH (09:39)
[2016-09-09] MEDS: MAG HYDROX/AL HYDROX/SIMETH SUSP 30 ML UDCUP PO PRN (13:10)
--- NOTE | 2016-09-09 19:46 | PDOC PROGRESS REPORT ---
Subjective Progress Note for:: 09/09/16 Subjective:: Patient was seen by the bedside, she is still wheezing. Physical Exam Vital Signs: Temp Pulse Resp BP Pulse Ox 98.2 F 77 20 140/61 H 95 09/09/16 15:44 09/09/16 16:28 09/09/16 16:28 09/09/16 15:44 09/09/16 16:28 Intake & Output 09/08/16 09/09/16 09/10/16 06:59 06:59 06:59 Intake Total 2813 1666 1706 Balance 2813 1666 1706 Weight 72.8 kg 73.9 kg General appearance: PRESENT: mild distress Eye exam: PRESENT: PERRLA Respiratory exam: PRESENT: wheezes Cardiovascular exam: PRESENT: +S1, +S2 GI/Abdominal exam: PRESENT: soft Neurological exam: PRESENT: alert Results Laboratory Results: 09/07/16 05:00 09/07/16 05:00 Impressions: Chest X-Ray 09/03/16 19:34 IMPRESSION: No significant interval change. No acute findings. Other findings as noted above Chest CT 09/04/16 00:00 IMPRESSION: Multiple segmental and subsegmental bronchi show debris-mucous plugging in the right lower lobe. Small areas of parenchymal atelectasis- airspace disease are present in the posterior basilar segments. Some scattered ground-glass markings are scattered in each lung. No dense consolidation. Trace right effusion. Assessment & Plan - Diagnosis (1) Acute exacerbation of chronic obstructive pulmonary disease (COPD) Is this a current diagnosis for this admission?: YesPlan: Continue same treatment (2) Paroxysmal atrial fibrillation Is this a current diagnosis for this admission?: Yes
[2016-09-10] MEDS: ALBUTEROL SULFATE 0.083% NEB 2.5 MG/3 ML AMPUL NEB SCH ×4 (00:08→12:26)
[2016-09-10] MEDS: METHYLPREDNISOLONE INJ 125 MG/2 ML SDV IV SCH ×2 (01:05→09:34)
[2016-09-10] MEDS: DILTIAZEM HCL 60 MG TABLET PO SCH ×2 (06:22→13:32)
[2016-09-10] MEDS: ENOXAPARIN SODIUM INJ 40 MG/0.4 ML DISP.SYRIN SUBCUT SCH (07:26)
[2016-09-10] MEDS: LANSOPRAZOLE 30 MG TAB.RAP.DR PO SCH (09:34)
[2016-09-10] MEDS: LEVOFLOXACIN 750 MG TABLET PO SCH (09:34)
[2016-09-10] MEDS: LISINOPRIL 10 MG TABLET PO SCH (09:35)
[2016-09-10 14:28] VITALS: BP 114/50
--- NOTE | 2016-09-10 16:40 | PDOC DISCHARGE SUMMARY ---
General - Admit/Disc Date/PCP Admission Date/Primary Care Provider: 09/05/16 09:26 HIPOLITO MCKEON MD Discharge Date: 09/10/16 - Discharge Diagnosis (1) Acute exacerbation of chronic obstructive pulmonary disease (COPD) Is this a current diagnosis for this admission?: Yes (2) Paroxysmal atrial fibrillation Is this a current diagnosis for this admission?: Yes - Additional Information Discharge Activity: Activity As Tolerated, Balance Activity w/Rest Home Medications: Lisinopril [Prinivil 40 mg Tablet] 40 mg PO DAILY 09/04/16 Albuterol Sulfate [Proair HFA] 1 - 2 puff IH Q4 PRN #1 inhaler 09/10/16 Budesonide/Formoterol Fumarate [Symbicort Hfa 160-4.5 Mcg Inhaler 6 gm] 2 puff IH Q12 #1 inhaler 09/10/16 Prednisone 20 mg PO DAILY #20 tablet 09/10/16 Umeclidinium Brm/Vilanterol Tr [Anoro Ellipta 62.5-25 Mcg INH] 1 each IH DAILY # 0 disk.w.dev 09/10/16 History of Present Illness History of Present Illness: ALEJANDRO MINOR is a 75 year old female with history of COPD, she came to emergency room last night because of fever, cough, shortness of breath in the emergency room she was evaluated and after admission was advised. When I saw her on the floor she was audibly wheezing with shortness of breath and she was using accessory muscles of respiration to breathe a stat ABG was done on 2 L and it showed pH 7.4 PCO2 45, bicarbonate 27.4 this is consistent with a mixed acid-base disorder. Hospital Course Hospital Course: Patient was admitted because of acute exacerbation of COPD, she was treated with IV Solu-Medrol, bronchodilators and IV antibiotic Levaquin hospital course was complicated with paroxysmal atrial fibrillation with rapid ventricular response, she was treated with IV Cardizem infusion and ultimately transitioned to p.o. She is not a candidate for chronic anticoagulation because of chads2 score 1. A 2D echo was done showed normal ejection fraction of the left ventricle on the pulmonary pressure was normal, there is mild to moderate mitral valve regurgitation. Physical Exam Vital Signs: Temp Pulse Resp BP Pulse Ox 98.1 F 90 18 114/50 L 93 09/10/16 14:26 09/10/16 14:26 09/10/16 14:26 09/10/16 14:26 09/10/16 14:26 Intake & Output 09/09/16 09/10/16 09/11/16 06:59 06:59 06:59 Intake Total 1665 2060 Balance 1665 2060 Weight 73.9 kg 73.8 kg General appearance: PRESENT: no acute distress Eye exam: PRESENT: PERRLA Respiratory exam: PRESENT: rhonchi Cardiovascular exam: PRESENT: +S1, +S2 GI/Abdominal exam: PRESENT: soft Neurological exam: PRESENT: alert, CN II-XII grossly intact Results Laboratory Results: 09/07/16 05:00 09/07/16 05:00 Impressions: Chest X-Ray 09/03/16 19:34 IMPRESSION: No significant interval change. No acute findings. Other findings as noted above Chest CT 09/04/16 00:00 IMPRESSION: Multiple segmental and subsegmental bronchi show debris-mucous plugging in the right lower lobe. Small areas of parenchymal atelectasis- airspace disease are present in the posterior basilar segments. Some scattered ground-glass markings are scattered in each lung. No dense consolidation. Trace right effusion. Plan Discharge Plan: I prefered patient to stay a few more days but she wants to go home so she was discharged home on p.o. prednisone
== END 2016-09-10 14:44 | disposition home or self-care (01) | DRG 192 ==
LOC: ER 19:15 → EH 09-04 01:46 → UNDOADMIN 09-04 01:46 → EH 09-04 04:52 → INTOOBSV 09-04 04:52 → 3W 09-04 08:05 → INTOOBSV 09-05 08:26 → OBSVTOIN 09-05 08:26
PROVIDERS: ADMIT Internal Medicine; ATTEND Internal Medicine
DX: J44.1 Chronic obstructive pulmonary disease with (acute) exacerbation (principal); I48.0 Paroxysmal atrial fibrillation; I10 Essential (primary) hypertension; M19.90 Unspecified osteoarthritis, unspecified site; E66.9 Obesity, unspecified; Z90.49 Acquired absence of other specified parts of digestive tract; Z90.710 Acquired absence of both cervix and uterus; Z87.891 Personal history of nicotine dependence; Z88.0 Allergy status to penicillin; Z87.01 Personal history of pneumonia (recurrent); Z79.899 Other long term (current) drug therapy; Z68.32 Body mass index [BMI] 32.0-32.9, adult
CPT/HCPCS: 36415; 36600; 71020; 71250; 80048; 80053; 80076; 81001; 82550; 82553; 82803; 83690; 84439; 84443; 84484; 85025; 87040; 87804; 93005; 93010; 93306; 96374; 99285; G0378; J0696; J1650; J1885; J1956; J2930; J3490; J7030

== ENCOUNTER 2017-02-04 21:30 | Emergency (ER) | payer MEDICARE ==
[2017-02-04] MEDS ORDERED: ASPIRIN 81 MG TABLET, CHEWABLE PO ONE (22:38)
--- NOTE | 2017-02-04 23:01 | RADIOLOGY REPORT (SQ) ---
EXAM DESCRIPTION: CHEST SINGLE VIEW COMPLETED DATE/TIME: 02/04/2017 10:51 pm REASON FOR STUDY: cp COMPARISON: 09/03/2016 EXAM PARAMETERS: NUMBER OF VIEWS: One view. TECHNIQUE: Single frontal radiographic view of the chest acquired. RADIATION DOSE: NA LIMITATIONS: None. FINDINGS: LUNGS AND PLEURA: No opacities, masses or pneumothorax. No pleural effusion. MEDIASTINUM AND HILAR STRUCTURES: No masses. Contour normal. HEART AND VASCULAR STRUCTURES: Heart normal in size. Normal vasculature. BONES: No acute findings. HARDWARE: None in the chest. OTHER: No other significant finding. IMPRESSION: NO ACUTE RADIOGRAPHIC FINDING IN THE CHEST. TECHNICAL DOCUMENTATION: JOB ID: [id number]
[2017-02-05 00:23] LABS: ABSOLUTE EOSINOPHILS # (AUTO) 0.2 10^3/uL (0.0-0.6); ABSOLUTE LYMPHOCYTES (AUTO) 1.7 10^3/uL (0.5-4.7); ABSOLUTE MONOCYTES (AUTO) 0.6 10^3/uL (0.1-1.4); ABSOLUTE NEUT (AUTO) 2.8 10^3/uL (1.7-8.2); BASOPHILS % (AUTO) 0.8 % (0-2); EOSINOPHILS % (AUTO) 3.4 % (0-6); HEMATOCRIT 42.9 % (36.0-47.0); HEMOGLOBIN 14.3 g/dL (12.0-15.5); LYMPHOCYTES % (AUTO) 31.8 % (13-45); MEAN CORPUSCULAR HEMOGLOBIN 29.2 pg (27.0-33.4); MEAN CORPUSCULAR HGB CONC 33.3 g/dL (32.0-36.0); MEAN CORPUSCULAR VOLUME 88 fl (80-97); MONOCYTES % (AUTO) 11.8 % (3-13); RED CELL DISTRIBUTION WIDTH 15.5 % (11.5-14.0); SEGMENTED NEUTROPHILS % (AUTO) 52.2 % (42-78); WHITE BLOOD COUNT 5.5 10^3/uL (4.0-10.5)
[2017-02-05 00:48] LABS: ALANINE AMINOTRANSFERASE 26 U/L (9-52); ALBUMIN 4.3 g/dL (3.5-5.0); ALKALINE PHOSPHATASE 109 U/L (38-126); ANION GAP 10 (5-19); ASPARTATE AMINO TRANSFERASE 18 U/L (14-36); BILIRUBIN,DIRECT 0.4 mg/dL (0.0-0.4); BILIRUBIN,TOTAL 0.5 mg/dL (0.2-1.3); BLOOD UREA NITROGEN 16 mg/dL (7-20); CALCIUM 9.7 mg/dL (8.4-10.2); CARBON DIOXIDE 26 mmol/L (22-30); CHLORIDE 104 mmol/L (98-107); CREATINE KINASE 26 U/L (30-135); GLUCOSE 97 mg/dL (75-110); POTASSIUM 4.6 mmol/L (3.6-5.0); SODIUM 140.1 mmol/L (137-145); TOTAL PROTEIN 7.4 g/dL (6.3-8.2)
[2017-02-05 01:00] LABS: CREATINE KINASE MB 0.49 ng/mL (<4.55)
[2017-02-05 01:01] LABS: TROPONIN I < 0.012 ng/mL
--- NOTE | 2017-02-05 01:48 | ER Document Report ---
ED General - General Chief Complaint: High Blood Pressure Stated Complaint: NECK PAIN,JAW PAIN,HIGH BLOOD PRESSURE Time Seen by Provider: 02/05/17 01:46 Notes: Patient is a 76-year-old female presents with complaint of her blood pressure, neck pain, jaw pain, heartburn. Patient says her blood pressures running high. She takes lisinopril. She has not missed a dose. She says that today she noticed some pain into her right jaw and neck. She also had some heartburn. No back pain. No difficulty breathing. No fevers. Says her heartburn is now gone. She still has some right-sided neck pain. She has no other complaints at this time. No headache. History of coronary disease. She did have one episode of atrial fibrillation in the past. She is not on blood thinning medications. TRAVEL OUTSIDE OF THE [place] IN LAST 30 DAYS: No - Related Data Allergies/Adverse Reactions: Penicillins Allergy (Verified 02/04/17 22:22) Home Medications: Current Home Medications Budesonide/Formoterol Fumarate [Symbicort Hfa 160-4.5 Mcg Inhaler 6 gm] 2 puff IH Q12 02/05/17 [History] Lisinopril [Lisinopril] 1 tab PO BID 02/05/17 [History] Naproxen [Naproxen] 1 tab PO BID PRN 02/05/17 [History] Past Medical History - Social History Smoking Status: Never Smoker Frequency of alcohol use: None Drug Abuse: None Family History: Reviewed & Not Pertinent - Past Medical History Cardiac Medical History: Reports: Hx Hypertension Denies: Hx Coronary Artery Disease, Hx Heart Attack Pulmonary Medical History: Reports: Hx COPD, Hx Pneumonia Denies: Hx Asthma, Hx Bronchitis, Hx Tuberculosis Neurological Medical History: Denies: Hx Cerebrovascular Accident, Hx Seizures Renal/ Medical History: Denies: Hx Peritoneal Dialysis Musculoskeltal Medical History: Reports Hx Arthritis Psychiatric Medical History: Denies: Hx Depression Past Surgical History: Reports: Hx Cholecystectomy, Hx Hysterectomy - Immunizations Hx Diphtheria, Pertussis, Tetanus Vaccination: No Hx Pneumococcal Vaccination: 12/27/12 Review of Systems - Review of Systems Notes: My Normal Review Basic REVIEW OF SYSTEMS: CONSTITUTIONAL : Denies fever, chills, or sweats. Denies recent illness. EENT: Neck pain. Jaw pain. CARDIOVASCULAR: Some heartburn RESPIRATORY: Denies cough, cold, or chest congestion. Denies shortness of breath, difficulty breathing, or wheezing. GASTROINTESTINAL: Denies abdominal pain. Denies nausea, vomiting, or diarrhea. Denies constipation. Last BM: GENITOURINARY: Denies difficulty urinating, painful urination, burning, frequency, or blood in urine. MUSCULOSKELETAL: Denies neck or back pain or joint pain or swelling. SKIN: Denies rash or skin lesions. NEUROLOGICAL: Denies altered mental status or loss of consciousness. Denies headache. Denies weakness or paralysis or loss of use of either side. Denies problems with gait or speech. Denies sensory or motor loss. ALL OTHER SYSTEMS REVIEWED AND NEGATIVE. Physical Exam - Vital signs Vitals: Temp Pulse Resp BP Pulse Ox 98.4 F 77 18 184/91 H 95 02/04/17 22:22 02/04/17 22:22 02/04/17 22:22 02/04/17 22:22 02/04/17 22:22 - Notes Notes: General Appearance: Well nourished, alert, cooperative, no acute distress, no obvious discomfort. Well appearing. Vitals: reviewed, See vital signs table. Head: no swelling or tenderness to the head Eyes: PERRL, EOMI, Conjuctiva clear Mouth: No decreasd moisture Throat: No tonsillar inflammation, No airway obstruction, No lymphadenopathy Neck: Supple, no pain to palpation of the right cervical paraspinal musculature. Lungs: No wheezing, No rales, No rhonci, No accessory muscle use, good air exchange bilaterally. Heart: Normal rate, Regular rythm, No murmur, no rub Abdomen: Normal BS, soft, No rigidity, No abdominal tenderness, No guarding, no rebound, no abdominal masses, no organomegaly Extremities: strength 5/5 in all extremities, good pulses in all extremities, no swelling or tenderness in the extremities, no edema. Skin: warm, dry, appropriate color, no rash Neuro: speech clear, oriented x 3, normal affect, responds appropriately to questions. No nerves II through XII are intact. Distal sensation intact. Patient moves all extremities without difficulty. Course - Re-evaluation Re-evalutation: 02/05/17 02:55 Patient's blood pressure started to improve before the nurse put the Nitropaste on her. She has no neck pain at all. She has no heartburn. She initially want to go home but she is agreeable to let me doing a delta troponin. I did talk to her about staying in the hospital. I informed her that this would be the safest option. Patient says that she does not want to stay in that she has a follow-up appointment with Dr. Mckeon at 9:15 in the morning. She is agreeable to let me at least do the delta troponin. 02/05/17 03:58 02/05/17 06:[address] did speak with Dr. Mckeon and informed him of the workup. Is negative and also that the patient does not want to stay in hospital but would follow-up with him this morning at 9:[address] Mckeon understands and will see her at her appointment at 9:15 AM. I strongly encourage her to return to ER immediately if she has any recurrence of pain, any difficulty breathing, or if she feels unwell. Patient agrees with plan will be discharged home. Dictation of this chart was performed using voice recognition software; therefore, there may be some unintended grammatical errors. - Vital Signs Vital signs: Temp Pulse Resp BP Pulse Ox 98.4 F 77 16 158/91 H 96 02/04/17 22:22 02/04/17 22:22 02/05/17 04:01 02/05/17 04:01 02/05/17 04:01 - Laboratory Result Diagrams: 02/05/17 00:08 02/05/17 00:08 Laboratory results interpreted by me: 02/05/17 02/05/17 00:08 00:08 RDW 15.5 H Creatine Kinase 26 L - EKG Interpretation by Me Additional EKG results interpreted by me: 02/05/17 01:47 EKG is reviewed and interpreted by me. EKG shows normal sinus rhythm with rate of [address] segment elevation or depression. No ischemic T-wave inversions. IA interval, QRS duration, QTc intervals are within normal range. Old EKG for comparison is from September 05, 2016. Discharge - Discharge Clinical Impression: Neck pain Chest pain Qualifiers: Chest pain type: unspecified Qualified Code(s): R07.9 - Chest pain, unspecified Hypertension Qualifiers: Hypertension type: unspecified Qualified Code(s): I10 - Essential (primary) hypertension Condition: Good Disposition: HOME, SELF-CARE Additional Instructions: Your symptoms still have the possibility of being caused by her heart. That is why we offered admission to [facility]. We understand that you prefer to follow- up with Dr. Mckeon in the morning. I did call and speak with Dr. Mckeon informed him of your workup [facility]. He will see you at your appointment in the morning. Please have a low threshold to return to the ER if you have recurrent pain, difficulty breathing, or feel unwell. Referrals: HIPOLITO MCKEON MD [ACTIVE STAFF] - 02/05/17
[2017-02-05] MEDS ORDERED: NITROGLYCERIN 2% OINTMENT 1 GM PACKET TP ONE (01:51)
[2017-02-05 04:03] VITALS: BP 158/91
--- NOTE | 2017-02-05 13:21 | EKG REPORT ---
SEVERITY:- NORMAL ECG - SINUS RHYTHM : Confirmed by: Rob Mace 05-Feb-2017 13:21:14
== END 2017-02-05 04:10 | disposition home or self-care (01) ==
LOC: ER 21:30
DX: I10 Essential (primary) hypertension (principal); M54.2 Cervicalgia; R68.84 Jaw pain; R12 Heartburn; R07.9 Chest pain, unspecified; J44.9 Chronic obstructive pulmonary disease, unspecified; Z88.0 Allergy status to penicillin
CPT/HCPCS: 36415; 71010; 80053; 82550; 82553; 84484; 85025; 93005; 93010; 99284

== ENCOUNTER 2017-07-21 17:17 | Emergency (ER) | payer MEDICARE ==
--- NOTE | 2017-07-21 18:22 | ER Document Report ---
ED Medical Screen (RME) - General Chief Complaint: Fever Stated Complaint: FEVER Time Seen by Provider: 07/21/17 18:12 Mode of Arrival: Ambulatory Information source: Patient Notes: Patient is a 76 year old female with PMHx of HTN,COPD with 3 day history of productive cough (green sputum), fever (tactile, did not take temp), chest congestion, right anterior chest wall pain only present with deep inspiration. She states she worsened yesterday and today. Denies history of smoking. Does use symbicort for COPD, does not use O2 at home. She has taken tylenol for fever which helped. Endorses sick contacts at home. TRAVEL OUTSIDE OF THE [place] IN LAST 30 DAYS: No - Related Data Allergies/Adverse Reactions: Penicillins Allergy (Verified 02/04/17 22:22) Past Medical History - Past Medical History Cardiac Medical History: Reports: Hx Hypertension Denies: Hx Coronary Artery Disease, Hx Heart Attack Pulmonary Medical History: Reports: Hx COPD, Hx Pneumonia Denies: Hx Asthma, Hx Bronchitis, Hx Tuberculosis Neurological Medical History: Denies: Hx Cerebrovascular Accident, Hx Seizures Renal/ Medical History: Denies: Hx Peritoneal Dialysis Musculoskeltal Medical History: Reports Hx Arthritis Psychiatric Medical History: Denies: Hx Depression Past Surgical History: Reports: Hx Cholecystectomy, Hx Hysterectomy - Immunizations Hx Diphtheria, Pertussis, Tetanus Vaccination: No Review of Systems - Review of Systems Constitutional: Fever Respiratory: Cough, Hurts to breathe, Short of breath, Sputum Physical Exam - Vital signs Vitals: Temp Pulse Resp BP Pulse Ox 99.1 F 91 24 H 162/79 H 94 07/21/17 17:21 07/21/17 17:21 07/21/17 17:21 07/21/17 17:21 07/21/17 17:21 - Notes Notes: General: Alert and oriented, speaking in full sentences without difficulty. Lungs: CTAB, no wheezing CV: RRR, normal S1 and S2 Course - Re-evaluation Re-evalutation: 07/21/17 18:22 I have greeted and performed a rapid initial assessment of this patient. A comprehensive ED assessment and evaluation of the patient, analysis of test results and completion of the medical decision making process will be conducted by additional ED providers. - Vital Signs Vital signs: Temp Pulse Resp BP Pulse Ox 99.1 F 91 24 H 162/79 H 94 07/21/17 17:21 07/21/17 17:21 07/21/17 17:21 07/21/17 17:21 07/21/17 17:21
--- NOTE | 2017-07-21 19:31 | RADIOLOGY REPORT (SQ) ---
EXAM DESCRIPTION: CHEST PA/LAT COMPLETED DATE/TIME: 07/21/2017 7:20 pm REASON FOR STUDY: cough, SOB COMPARISON: 02/04/2017. EXAM PARAMETERS: NUMBER OF VIEWS: two views TECHNIQUE: Digital Frontal and Lateral radiographic views of the chest acquired. RADIATION DOSE: NA LIMITATIONS: none FINDINGS: LUNGS AND PLEURA: Linear density in the right lung base. No focal infiltrates, masses or pneumothorax. No pleural effusion. MEDIASTINUM AND HILAR STRUCTURES: No masses or contour abnormalities. HEART AND VASCULAR STRUCTURES: Heart normal size. No evidence for failure. BONES: No acute findings. HARDWARE: Clips in the upper abdomen. OTHER: No other significant finding. IMPRESSION: LINEAR ATELECTASIS OR SCARRING IN THE RIGHT LUNG BASE. OTHERWISE NO ACUTE RADIOGRAPHIC FINDING IN THE CHEST. TECHNICAL DOCUMENTATION: JOB ID: [id number] [employer]- All Rights Reserved
[2017-07-21 19:45] LABS: A TYPE INFLUENZA AG NEGATIVE (NEGATIVE); B INFLUENZA AG NEGATIVE (NEGATIVE)
[2017-07-21 20:48] VITALS: BP 154/82
--- NOTE | 2017-07-21 20:54 | ER Document Report ---
ED General - General Mode of Arrival: Ambulatory Information source: Patient TRAVEL OUTSIDE OF THE [place] IN LAST 30 DAYS: No - General Chief Complaint: Fever Stated Complaint: FEVER Time Seen by Provider: 07/21/17 18:12 Notes: Patient is a 76-year-old female with PMHx of HTN,COPD with 3 day history of productive cough (green sputum), fever (tactile, did not take temp), chest congestion, right anterior chest wall pain only present with deep inspiration. Denies any shortness of breath, dyspnea on exertion, peripheral edema, nausea vomiting or diarrhea. She states she worsened yesterday and today. Denies history of smoking. Does use symbicort for COPD, does not use O2 at home. She has taken tylenol for fever which helped. Endorses sick contacts at home. ( GEOVANY ORELLANA) - Related Data Allergies/Adverse Reactions: Penicillins Allergy (Verified 02/04/17 22:22) Past Medical History - General Information source: Patient - Social History Smoking Status: Former Smoker Chew tobacco use (# tins/day): No Frequency of alcohol use: None Drug Abuse: None Family History: Reviewed & Not Pertinent Patient has suicidal ideation: No Patient has homicidal ideation: No - Past Medical History Cardiac Medical History: Reports: Hx Hypertension Denies: Hx Coronary Artery Disease, Hx Heart Attack Pulmonary Medical History: Reports: Hx COPD, Hx Pneumonia Denies: Hx Asthma, Hx Bronchitis, Hx Tuberculosis Neurological Medical History: Denies: Hx Cerebrovascular Accident, Hx Seizures Renal/ Medical History: Denies: Hx Peritoneal Dialysis Musculoskeltal Medical History: Reports Hx Arthritis Psychiatric Medical History: Denies: Hx Depression Past Surgical History: Reports: Hx Cholecystectomy, Hx Hysterectomy - Immunizations Hx Diphtheria, Pertussis, Tetanus Vaccination: No Hx Pneumococcal Vaccination: 12/27/12 Review of Systems - Review of Systems Constitutional: See HPI EENT: No symptoms reported Cardiovascular: See HPI Respiratory: See HPI Gastrointestinal: No symptoms reported Genitourinary: No symptoms reported Female Genitourinary: No symptoms reported Musculoskeletal: No symptoms reported Skin: No symptoms reported Hematologic/Lymphatic: No symptoms reported Neurological/Psychological: No symptoms reported Physical Exam - Vital signs Vitals: Temp Pulse Resp BP Pulse Ox 99.1 F 91 24 H 162/79 H 94 07/21/17 17:21 07/21/17 17:21 07/21/17 17:21 07/21/17 17:21 07/21/17 17:21 - Notes Notes: PHYSICAL EXAM: CONSTITUTIONAL: Alert and oriented, well-appearing and in no acute distress. Speaking in full sentences without difficulty. Did not appear dyspneic when ambulatory in emergency department. HENT: Normocephalic, atraumatic. Trachea midline. Uvula midline. Moist mucous membranes. EYES: Pupils equal round and reactive to light, EOM intact. Sclera anicteric, conjunctiva are normal. No entrapment. NECK: supple without lymphadenopathy. No midline tenderness or paraspinous muscle spasms. No step-offs or deformities. ROM intact. HEART: Regular rate and rhythm without murmurs. LUNGS: CTAB and equal. No wheezes, rales or rhonchi. Right anterior chest wall pain reproducible on exam. GI: Normactive bowel sounds. Nontender, non-distended. No organomegaly. no CVAT. EXTREMITIES: Normal range of motion, no pitting edema. No cyanosis. Cap Refill < 3 seconds. NEURO: Cranial nerves grossly intact. Normal sensory/motor exams. PSYCH: Normal mood, normal affect. SKIN: Warm and dry. Normal turgor. No rashes or lesions noted. (GEOVANY ORELLANA) Course - Diagnostic Test Radiology reviewed: Image reviewed, Reports reviewed - Re-evaluation Re-evalutation: 07/21/17 18:56 Patient seen and examined. No hypoxia, respirations were initially 24 in triage but upon my exam respirations are 20. She was ambulatory in the ED and did not appear dyspneic. No wheezing, lungs are clear to auscultation bilaterally. Will obtain chest x-ray and check for influenza. Patient was afebrile in triage also. 07/21/17 20:57 Reviewed imaging studies, no pulmonary edema, pleural effusion, infiltrate. In setting of history of COPD, will treat for COPD exacerbation with steroids, antibiotics and advised to continue Symbicort. Given strict return precautions. Low suspicion at this time for CAD, expanding/ruptured AAA, pneumonia or other emergent condition at this time. Family voiced agreement with management plan. At this time, will discharge with return precautions and follow-up recommendations. Verbal discharge instructions given at the bedside and opportunity for questions given. Medication warnings reviewed. Patient is in agreement with this plan and has verbalized understanding of return precautions and the need for primary care follow-up in the next 24-72 hours. (GEOVANY ORELLANA) - Vital Signs Vital signs: Temp Pulse Resp BP Pulse Ox 98.5 F 86 16 154/82 H 94 07/21/17 20:47 07/21/17 20:47 07/21/17 20:47 07/21/17 20:47 07/21/17 20:47 07/21/17 20:58 Reviewed repeat vitals (GEOVANY ORELLANA) Discharge - Discharge Clinical Impression: Acute exacerbation of chronic obstructive pulmonary disease (COPD) Fever Qualifiers: Fever type: unspecified Qualified Code(s): R50.9 - Fever, unspecified Condition: Stable Disposition: HOME, SELF-CARE Instructions: Chronic Obstructive Lung Disease ([facility]), Fever ([facility]), Viral Syndrome ([facility]) Additional Instructions: Take medications as instructed. Your x-ray today did not show any evidence of pneumonia or fluid in your lungs. If your symptoms worsen at all please return immediately to the emergency department FOLLOW-UP CARE: If you have been referred to a physician for follow-up care, call the physician s office for an appointment as you were instructed or within the next two days. If you experience worsening or a significant change in your symptoms, notify the physician immediately or return to the Emergency Department at any time for re-evaluation. Prescriptions: Albuterol Sulfate [Proair HFA Inhalation Aerosol 8.5 gm MDI] 2 puff IH Q4H PRN # 1 mdi PRN Reason: Doxycycline Hyclate 100 mg PO BID #14 capsule Prednisone [Deltasone 10 mg Tablet] 10 mg PO ASDIR PRN #21 tablet PRN Reason: Forms: Elevated Blood Pressure Referrals: HIPOLITO MCKEON MD [Primary Care Provider] - Follow up as needed Scribe Attestation: 07/23/17 10:58 I personally performed the services described in the documentation, reviewed and edited the documentation which was dictated to describe my presence, and it accurately records my words and actions (TESFAYE CHAVARRIA)
== END 2017-07-21 20:48 | disposition home or self-care (01) ==
LOC: ER 17:17
DX: J44.1 Chronic obstructive pulmonary disease with (acute) exacerbation (principal); Z79.51 Long term (current) use of inhaled steroids; R50.9 Fever, unspecified; R05 Cough; I10 Essential (primary) hypertension; R07.1 Chest pain on breathing; Z88.0 Allergy status to penicillin; Z87.01 Personal history of pneumonia (recurrent)
CPT/HCPCS: 71046; 87804; 99284

== ENCOUNTER → 2017-11-18 | Outpatient (CLI) | payer MEDICARE ==
--- NOTE | 2017-11-18 08:42 | RADIOLOGY REPORT (SQ) ---
EXAM DESCRIPTION: MRI LUMBAR SPINE WITHOUT COMPLETED DATE/TIME: 11/18/2017 7:35 am REASON FOR STUDY: LOW BACK PAIN (M54.5), LUMBAR RADICULOPATHY (M54.16) M54.5 LOW BACK PAIN M54.16 RADICULOPATHY, LUMBAR REGION COMPARISON: CT abdomen pelvis 04/24/2016 TECHNIQUE: Sagittal and Axial imaging includes T1, T2, STIR and gradient echo sequences. Coronal T2/ HASTE imaging. LIMITATIONS: None. FINDINGS: VISUALIZED UPPER ABDOMEN: Limited evaluation. No acute or suspicious findings suggested. SEGMENTATION: No transitional anatomy. The lowest well-developed disc space is labeled L5-S1. ALIGNMENT: Very mild anterolisthesis of L4 over L5, and mild anterolisthesis of L5 over S1. VERTEBRAE: Intact. BONE MARROW: Normal. No marrow replacement or reactive changes. DISC SIGNAL: Diffuse decreased T2 weighted intervertebral disc signal. Disc space loss of height at L4-5 and L5-S1 POSTERIOR ELEMENTS: Generally intact. No pars defect evident. HARDWARE: None in the spine. CORD AND CONUS: Normal in size and signal intensity. Conus at the L1 level. SOFT TISSUES: No aortic aneurysm seen. No bulky retroperitoneal adenopathy or mass. No paraspinal mas s or fluid. T11-12: At the upper edge of the field of view. No central or foraminal stenosis. T12-L1: No central or foraminal stenosis. L1-L2: No central or foraminal stenosis L2-L3: Mild diffuse posterior disc bulging, moderate bilateral facet hypertrophy. No central stenosi s. Minimal bilateral inferior foraminal narrowing without exiting L2 nerve root impingement. L3-L4: Broad diffuse posterior disc bulging and bulky bilateral facet and ligament hypertrophy cause moderate central canal stenosis best shown on axial T2 series 6, image 17. There is mild bilateral i nferior foraminal narrowing at L3-4 without exiting L3 nerve root impingement L4-L5: Grade 1 anterolisthesis of L4 over L5, broad diffuse posterior disc bulge and bulky bilateral facet and ligament hypertrophy cause moderate central canal stenosis. This is best shown on axial T2 series 6, image 22. Moderate bilateral foraminal narrowing is present without exiting L4 nerve root impingement. There are small synovial cysts protruding off the inferior aspect of the right and lef t L4-5 facet joints without impingement on the exiting nerve roots. L5-S1: Mild posterior disc bulge and bony spurring, mild grade 1 anterolisthesis of L5 over S1, very bulky bilateral facet hypertrophy is present. This causes mild central canal stenosis and mild right , moderate left foraminal narrowing without exiting L5 nerve root impingement. SACRUM: Visualized upper sacrum intact. OTHER: No other significant findings. 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 TECHNICAL DOCUMENTATION: JOB ID: [id number] [employer] All Rights Reserved Reading location - IP/workstation name: [email or web address]
== END ==
LOC: RAD 06:46 → MERGE 07:30
PROVIDERS: ATTEND Physician Assistant
DX: M54.5 Low back pain (principal); M54.16 Radiculopathy, lumbar region
CPT/HCPCS: 72148

== ENCOUNTER 2017-11-21 13:47 | Emergency (ER) | payer MEDICARE ==
[2017-11-21] MEDS ORDERED: ASPIRIN 81 MG TABLET, CHEWABLE PO ONE (14:14)
--- NOTE | 2017-11-21 14:16 | ER Document Report ---
ED Medical Screen (RME) - General Chief Complaint: Neck Problem Stated Complaint: NECK PAIN Time Seen by Provider: 11/21/17 14:10 Notes: RAPID MEDICAL EVALUATION DISCLOSURE I have seen this patient as part of a Rapid Medical Evaluation and, if applicable, placed any initially appropriate orders. The patient will be seen and fully evaluated, including a full history and physical exam, by a provider ( in Main ED or Fast Track) when a room becomes available. 76-year-old female here with complaints of midsternal chest discomfort described as "heartburn". The discomfort radiates up to the neck and is associated with shortness of breath. The symptoms started 2 days ago. She cannot tell me if it is worse specifically with exertion because "everything makes it worse". She also talks about leg swelling however states this is been ongoing for "a very long time" and her leg swelling is actually better than it normally is at baseline. EXAM CTAB RRR TRAVEL OUTSIDE OF THE [place] IN LAST 30 DAYS: No - Related Data Allergies/Adverse Reactions: Penicillins Allergy (Verified 02/04/17 22:22) Past Medical History - Social History Chew tobacco use (# tins/day): No Frequency of alcohol use: None Drug Abuse: None - Past Medical History Cardiac Medical History: Reports: Hx Hypertension Denies: Hx Coronary Artery Disease, Hx Heart Attack Pulmonary Medical History: Reports: Hx COPD, Hx Pneumonia Denies: Hx Asthma, Hx Bronchitis, Hx Tuberculosis Neurological Medical History: Denies: Hx Cerebrovascular Accident, Hx Seizures Renal/ Medical History: Denies: Hx Peritoneal Dialysis Musculoskeltal Medical History: Reports Hx Arthritis Psychiatric Medical History: Denies: Hx Depression Past Surgical History: Reports: Hx Cholecystectomy, Hx Hysterectomy - Immunizations Hx Diphtheria, Pertussis, Tetanus Vaccination: No Physical Exam - Vital signs Vitals: Temp Pulse Resp BP Pulse Ox 98.6 F 85 16 149/82 H 94 11/21/17 13:51 11/21/17 13:51 11/21/17 13:51 11/21/17 13:51 11/21/17 13:51 Course - Vital Signs Vital signs: Temp Pulse Resp BP Pulse Ox 98.6 F 85 16 149/82 H 94 11/21/17 13:51 11/21/17 13:51 11/21/17 13:51 11/21/17 13:51 11/21/17 13:51
[2017-11-21 15:05] LABS: ABSOLUTE EOSINOPHILS # (AUTO) 0.1 10^3/uL (0.0-0.6); ABSOLUTE LYMPHOCYTES (AUTO) 0.7 10^3/uL (0.5-4.7); ABSOLUTE MONOCYTES (AUTO) 0.5 10^3/uL (0.1-1.4); ABSOLUTE NEUT (AUTO) 2.7 10^3/uL (1.7-8.2); BASOPHILS % (AUTO) 1.1 % (0-2); EOSINOPHILS % (AUTO) 2.5 % (0-6); HEMATOCRIT 40.7 % (36.0-47.0); HEMOGLOBIN 13.4 g/dL (12.0-15.5); LYMPHOCYTES % (AUTO) 16.4 % (13-45); MEAN CORPUSCULAR HEMOGLOBIN 29.6 pg (27.0-33.4); MEAN CORPUSCULAR VOLUME 90 fl (80-97); MONOCYTES % (AUTO) 12.5 % (3-13); PLATELET COUNT 249 10^3/uL (150-450); RED BLOOD COUNT 4.54 10^6/uL (3.72-5.28); RED CELL DISTRIBUTION WIDTH 14.7 % (11.5-14.0); SEGMENTED NEUTROPHILS % (AUTO) 67.5 % (42-78); TOTAL CELLS COUNTED % (AUTO) 100 %; WHITE BLOOD COUNT 4.1 10^3/uL (4.0-10.5)
[2017-11-21 15:26] LABS: ALANINE AMINOTRANSFERASE 26 U/L (9-52); ALBUMIN 3.8 g/dL (3.5-5.0); ALKALINE PHOSPHATASE 92 U/L (38-126); ANION GAP 10 (5-19); ASPARTATE AMINO TRANSFERASE 25 U/L (14-36); BILIRUBIN,DIRECT 0.3 mg/dL (0.0-0.4); BILIRUBIN,TOTAL 0.4 mg/dL (0.2-1.3); BLOOD UREA NITROGEN 14 mg/dL (7-20); CALCIUM 9.3 mg/dL (8.4-10.2); CARBON DIOXIDE 26 mmol/L (22-30); CHLORIDE 106 mmol/L (98-107); GLUCOSE 114 mg/dL (75-110); POTASSIUM 3.9 mmol/L (3.6-5.0); SODIUM 142.3 mmol/L (137-145); TOTAL PROTEIN 6.4 g/dL (6.3-8.2)
--- NOTE | 2017-11-21 15:34 | ER Document Report ---
ED General - General Chief Complaint: Neck Problem Stated Complaint: NECK PAIN Time Seen by Provider: 11/21/17 14:10 Notes: The patient is a 76-year-old female, past medical history reflux, chronic neck pain, presents with 2 days of worsening epigastric pain with burning sensation radiating up to her throat. She is out of her Nexium. She is also having bilateral neck pain is worse with movement. She ran out of her Voltaren cream. Patient's also talked about leg swelling however this is been ongoing for "a very long time" and her leg swelling is actually better than it normally is at baseline. She denies numbness, tingling, nausea, vomiting, hemoptysis, shortness of breath, fevers or headache. TRAVEL OUTSIDE OF THE [place] IN LAST 30 DAYS: No - Related Data Allergies/Adverse Reactions: Penicillins Allergy (Verified 11/21/17 14:15) Past Medical History - General Information source: Patient - Social History Smoking Status: Former Smoker Chew tobacco use (# tins/day): No Frequency of alcohol use: None Drug Abuse: None Family History: Reviewed & Not Pertinent Patient has suicidal ideation: No Patient has homicidal ideation: No - Past Medical History Cardiac Medical History: Reports: Hx Hypertension Denies: Hx Coronary Artery Disease, Hx Heart Attack Pulmonary Medical History: Reports: Hx COPD, Hx Pneumonia Denies: Hx Asthma, Hx Bronchitis, Hx Tuberculosis Neurological Medical History: Denies: Hx Cerebrovascular Accident, Hx Seizures Renal/ Medical History: Denies: Hx Peritoneal Dialysis Musculoskeltal Medical History: Reports Hx Arthritis Psychiatric Medical History: Denies: Hx Depression Past Surgical History: Reports: Hx Cholecystectomy, Hx Hysterectomy - Immunizations Hx Diphtheria, Pertussis, Tetanus Vaccination: No Hx Pneumococcal Vaccination: 12/27/12 Review of Systems - Review of Systems Notes: REVIEW OF SYSTEMS: CONSTITUTIONAL: -fevers, -chills EENT: -eye pain, -difficulty swallowing, -nasal congestion CARDIOVASCULAR: +chest pain, -syncope. RESPIRATORY: -cough, -SOB GASTROINTESTINAL: +epigastric abdominal pain, -nausea, -vomiting, -diarrhea GENITOURINARY: -dysuria, -hematuria MUSCULOSKELETAL: -back pain, +neck pain SKIN: -rash or skin lesions. HEMATOLOGIC: -easy bruising or bleeding. LYMPHATIC: -swollen, enlarged glands. NEUROLOGICAL: -altered mental status or loss of consciousness, -headache, - neurologic symptoms PSYCHIATRIC: -anxiety, -depression. ALL OTHER SYSTEMS REVIEWED AND NEGATIVE. Physical Exam - Vital signs Vitals: Temp Pulse Resp BP Pulse Ox 98.6 F 85 16 149/82 H 94 11/21/17 13:51 11/21/17 13:51 11/21/17 13:51 11/21/17 13:51 11/21/17 13:51 - Notes Notes: PHYSICAL EXAMINATION: GENERAL: Well-appearing, well-nourished and in no acute distress. HEAD: Atraumatic, normocephalic. EYES: Pupils equal round and reactive to light, extraocular movements intact, sclera anicteric, conjunctiva are normal. ENT: nares patent, oropharynx clear without exudates. Moist mucous membranes. NECK: Normal range of motion, mild tenderness over bilateral cervical paraspinal muscles, no midline tenderness. LUNGS: Breath sounds clear to auscultation bilaterally and equal. No wheezes rales or rhonchi. HEART: Regular rate and rhythm without murmurs ABDOMEN: Soft, mild epigastric tenderness, normoactive bowel sounds. No guarding, no rebound. No masses appreciated. EXTREMITIES: Normal range of motion, no pitting or edema. No cyanosis. NEUROLOGICAL: Cranial nerves grossly intact. Normal speech, normal gait. Normal sensory and motor exams. PSYCH: Normal mood, normal affect. SKIN: Warm, Dry, normal turgor, no rashes or lesions noted. Course - Re-evaluation Re-evalutation: Patient appears well. After the GI cocktail, her epigastric and chest burning pain completely resolved. EKG does not show any ischemic changes and troponin is negative. Rest of blood work is also unremarkable and chest x-ray does not show any acute abnormalities. Patient also with bilateral cervical paraspinal muscle pain. Refilled her Voltaren cream and Nexium with instructions to follow -up with her primary care physician. Symptoms are atypical for aortic dissection, ACS or PE at this time. Given very strict return precautions and she understands. - Vital Signs Vital signs: Temp Pulse Resp BP Pulse Ox 98.6 F 85 16 149/82 H 94 11/21/17 13:51 11/21/17 13:51 11/21/17 13:51 11/21/17 13:51 11/21/17 13:51 - Laboratory Result Diagrams: 11/21/17 14:52 05/26/18 14:52 Laboratory results interpreted by me: 11/21/17 11/21/17 14:52 14:52 RDW 14.7 H Glucose 114 H - Diagnostic Test Radiology reviewed: Image reviewed, Reports reviewed Radiology results interpreted by me: CXR: NAD - EKG Interpretation by Me EKG shows normal: Sinus rhythm, [place], Intervals, QRS Complexes, ST-T Waves Rate: Normal Discharge - Discharge Clinical Impression: Epigastric pain, Esophagitis Neck muscle strain Qualifiers: Encounter type: initial encounter Qualified Code(s): S16.1XXA - Strain of muscle, fascia and tendon at neck level, initial encounter Chest pain Qualifiers: Chest pain type: unspecified Qualified Code(s): R07.9 - Chest pain, unspecified Condition: Stable Disposition: HOME, SELF-CARE Additional Instructions: CHEST PAIN OF UNCLEAR CAUSE: The exact cause of your chest pain isn't clear. Fortunately, there is no evidence of a dangerous medical condition. Further testing may be required to find the source of the pain. Most often, we find that this pain is coming from the chest wall -- the muscles or rib joints in the chest. But chest pain can come from the lung and lung lining, the esophagus, the heart valves or heart lining, and even the stomach or gallbladder. Rest. Eat lightly until the pain is gone. We may prescribe medicine for pain and inflammation. You should call the physician immediately if the pain radiates to the shoulder, jaw or arms; if you start to run a fever or develop a cough; or if you develop shortness of breath, or other new or alarming symptoms. NORMAL EXAM AND WORKUP: At this time, your examination and workup show no significant abnormality. No significant abnormal physical findings were noted. All laboratory, EKG, and imaging (x-ray, CT scans, ultrasound) studies that were ordered show no significant abnormality. Although your examination and all studies that were ordered showed no significant abnormal finding, there are no examinations and no studies that are 100% accurate. There is always the possibility that some abnormality could exist and not be detected with physical examination or within the limits and capabilities of laboratory and other studies. You should return or follow up as you were instructed on your visit today for further evaluation if your symptoms do not resolve. ACID REFLUX DISEASE (GERD): Gastro-Esophageal Reflux Disease (GERD) is caused by stomach acid refluxing back up into the esophagus. The valve at the end of the esophagus may be weak. This is common in persons with a hiatal hernia. GERD symptoms can include indigestion, chest pain, heartburn, or food "sticking." Certain foods, alcohol, and aspirin can make GERD worse. Treatment depends on the severity. Usually, antacids or acid-suppressing medicines are used. When the esophagus is acutely inflamed, the physician will often prescribe membrane-protective drugs such as Carafate. Some patients benefit from medication such as Reglan that tightens the valve at the top of the stomach. Avoid those foods that bring on your symptoms. For many people, these foods are coffee, chocolate, onions, garlic, and carbonated drinks. Don't use alcohol, aspirin, caffeine, or tobacco. Don't eat late at night -- within 4 hours of bedtime. Don't over-eat. If necessary, elevate the head of your bed about 4 inches so that stomach acid will not roll up into your esophagus. Call the doctor if you develop severe chest pain, inability to swallow fluids, fever, or worsening symptoms. ASPIRIN: Aspirin has been shown to have a beneficial effect on blood circulation by reducing the clotting effect of platelets in the blood. These beneficial effects can be achieved by taking just a single baby (81 mg) aspirin a day. It is recommended that any person over the age of forty take a single baby aspirin every day for heart and brain circulation, unless you are allergic to aspirin or have some significant bleeding disorder. It is strongly recommended that people who have proven cardiac or blood circulation disturbances should take a baby aspirin every day. PRILOSEC (ACID PUMP INHIBITOR): Prilosec (omeprazole) is an acid-pump inhibitor. It blocks the secretion of hydrogen ions in the acid-producing cells of the stomach. Prilosec keeps your stomach from making acid. Take all medication as prescribed, even after the pain is gone. Regular antacids may be added as needed if you have symptoms while taking this medicine. There are usually no side effects from this medication. Contact your doctor if there is fever, rash, yellow skin color, increasing abdominal pain, weakness, or unusual bruising. Return at once if you develop lightheadedness, black or bloody stool, or bloody vomitus. FOLLOW-UP CARE: If you have been referred to a physician for follow-up care, call the physician s office for an appointment as you were instructed or within the next two days. If you experience worsening or a significant change in your symptoms, notify the physician immediately or return to the Emergency Department at any time for re-evaluation. Neck Injury (Cervical Strain) You have a neck strain. This is an injury to the muscles and ligaments in the neck. There is no evidence of a fracture of the neck bones. Also, no injury to the spinal cord or nerve roots was detected. Usually, stiffness and pain INCREASE for the first 24-48 hours after the injury. The pain will gradually resolve and the neck will become more mobile. Most patients are back at work or school within a few days. Typically, complete healing takes about two or three weeks. The usual initial treatment is rest and cold packs. A neck collar may be placed to keep the muscles of the neck at rest. Antiinflammatory and muscle relaxing medication are often used to reduce the spasm and irritation. You should call the doctor, or go to the hospital, if you develop numbness or weakness in any extremity, problems with your bladder or bowel, or pain radiating down the arms. Prescriptions: Diclofenac Sodium [Voltaren] 100 gm TP Q12H PRN #100 gel..gm. PRN Reason: Esomeprazole Magnesium [Nexium 24Hr] 20 mg PO DAILY #20 capsule.dr Forms: Elevated Blood Pressure Referrals: HIPOLITO MCKEON MD [Primary Care Provider] - Follow up as needed
[2017-11-21 15:38] LABS: NT PRO BNP 217 pg/mL (<450)
--- NOTE | 2017-11-21 15:39 | RADIOLOGY REPORT (SQ) ---
EXAM DESCRIPTION: CHEST 2 VIEWS COMPLETED DATE/TIME: 11/21/2017 3:31 pm REASON FOR STUDY: CP COMPARISON: 07/21/2017 EXAM PARAMETERS: NUMBER OF VIEWS: two views TECHNIQUE: Digital Frontal and Lateral radiographic views of the chest acquired. RADIATION DOSE: NA LIMITATIONS: none FINDINGS: LUNGS AND PLEURA: No opacities, masses or pneumothorax. No pleural effusion. MEDIASTINUM AND HILAR STRUCTURES: No masses or contour abnormalities. HEART AND VASCULAR STRUCTURES: Heart normal size. No evidence for failure. BONES: No acute findings. HARDWARE: None in the chest. OTHER: No other significant finding. IMPRESSION: NO ACUTE RADIOGRAPHIC FINDING IN THE CHEST. TECHNICAL DOCUMENTATION: JOB ID: [id number] [employer]- All Rights Reserved Reading location - IP/workstation name: [email or web address]
[2017-11-21 15:40] LABS: TROPONIN I < 0.012 ng/mL
[2017-11-21] MEDS ORDERED: MAG HYDROX/AL HYDROX/SIMETH SUSP 30 ML UDCUP PO ONE (16:16)
[2017-11-21] MEDS ORDERED: LIDOCAINE 2% VISCOUS SOLN 20 ML UDCUP PO ONE (16:16)
[2017-11-21] MEDS ORDERED: METOCLOPRAMIDE HCL ORAL SOLN 10 MG/10 ML UDCUP PO ONE (16:16)
[2017-11-21] MEDS ORDERED: LIDOCAINE 5% (700 MG) TRANSDERMAL ADH..PATCH TP ONE (16:17)
--- NOTE | 2017-11-21 16:37 | EKG REPORT ---
SEVERITY:- DEFECTIVE ECG - ALL 12 LEADS ARE MISSING : Confirmed by: Nawaf Castillo MD 21-Nov-2017 16:36:07
[2017-11-21 16:49] VITALS: BP 148/78
--- NOTE | 2017-11-24 10:30 | EKG REPORT ---
SEVERITY:- NORMAL ECG - SINUS RHYTHM : Confirmed on behalf of: Rob Mace 24-Nov-2017 10:29:12
== END 2017-11-21 16:45 | disposition home or self-care (01) ==
LOC: ER 13:47
DX: K21.0 Gastro-esophageal reflux disease with esophagitis (principal); T47.1X6A Underdosing of other antacids and anti-gastric-secretion drugs, initial encounter; Z91.128 Patient's intentional underdosing of medication regimen for other reason; Z91.14 Patient's other noncompliance with medication regimen; R10.13 Epigastric pain; R07.9 Chest pain, unspecified; S16.1XXA Strain of muscle, fascia and tendon at neck level, initial encounter; M54.2 Cervicalgia; X58.XXXA Exposure to other specified factors, initial encounter; T39.396A Underdosing of other nonsteroidal anti-inflammatory drugs [NSAID], initial encounter; I10 Essential (primary) hypertension; J44.9 Chronic obstructive pulmonary disease, unspecified; Z88.0 Allergy status to penicillin; Z87.891 Personal history of nicotine dependence
CPT/HCPCS: 93005; 99284; 36415; 85025; 80053; 84484; 83880; 71046; 93010; A9270 ×2; J3490

== ENCOUNTER 2017-11-28 16:14 | Inpatient (IN) | payer MEDICARE ==
[2017-11-28] MEDS ORDERED: NORMAL SALINE 1000 ML 1,000 ML IV ONE (17:04)
[2017-11-28] MEDS ORDERED: LEVOFLOXACIN 750 MG/D5W RTU 750 MG/150 ML RTUPB IV ONE (17:04)
--- NOTE | 2017-11-28 17:05 | ER Document Report ---
ED Respiratory Problem - General TRAVEL OUTSIDE OF THE [place] IN LAST 30 DAYS: No <CLINT RIVERA - Last Filed: 11/28/17 18:25> <AMBER BARRETO - Last Filed: 11/28/17 19:28> - General Chief Complaint: Breathing Difficulty Stated Complaint: SHORTNESS OF BREATH, FEVER Time Seen by Provider: 11/28/17 16:51 Notes: Patient is a 76-year-old female that presents to the emergency department today with complaints of shortness of breath. Patient was seen in an urgent care prior to arrival today and was told there is a "likely pneumonia" on chest x- ray. Patient was 88% on room air on arrival here. Patient has had a fever as well. (CLINT RIVERA) At urgent care she received duo nebs 3, albuterol 1, Decadron 10 mg IM and acetaminophen. (AMBER BARRETO) - Related Data Allergies/Adverse Reactions: Penicillins Allergy (Verified 11/28/17 16:15) Past Medical History - General Information source: Patient - Social History Smoking Status: Former Smoker Cigarette use (# per day): No Frequency of alcohol use: None Drug Abuse: None Lives with: Family Family History: Reviewed & Not Pertinent - Past Medical History Cardiac Medical History: Reports: Hx Hypertension Pulmonary Medical History: Reports: Hx COPD, Hx Pneumonia Musculoskeltal Medical History: Reports Hx Arthritis Past Surgical History: Reports: Hx Cholecystectomy, Hx Hysterectomy - Immunizations Hx Diphtheria, Pertussis, Tetanus Vaccination: No Hx Pneumococcal Vaccination: 12/27/12 <CLINT RIVERA - Last Filed: 11/28/17 18:25> Review of Systems - Review of Systems Constitutional: See HPI, Fever EENT: No symptoms reported Cardiovascular: No symptoms reported Respiratory: See HPI, Cough, Short of breath Gastrointestinal: No symptoms reported Genitourinary: No symptoms reported Female Genitourinary: No symptoms reported Musculoskeletal: No symptoms reported Skin: No symptoms reported Hematologic/Lymphatic: No symptoms reported Neurological/Psychological: No symptoms reported -: Yes All other systems reviewed and negative <CLINT RIVERA - Last Filed: 11/28/17 18:25> Physical Exam <CLINT RIVERA - Last Filed: 11/28/17 18:25> <AMBER BARRETO - Last Filed: 11/28/17 19:28> - Vital signs Vitals: Temp Pulse Resp BP Pulse Ox 98.4 F 110 H 40 H 112/65 90 L 11/28/17 16:31 11/28/17 16:31 11/28/17 16:31 11/28/17 16:31 11/28/17 16:31 - Notes Notes: PHYSICAL EXAM GENERAL: Alert, interacts well. No acute distress. HEAD: Normocephalic, atraumatic. EYES: Pupils equal, round, and reactive to light. Extraocular movements intact. ENT: Oral mucosa moist, tongue midline. NECK: Full range of motion. Supple. Trachea midline. LUNGS: Diffuse rhonchi, concentrated wheeze in the left lower lobe. Tachypnea. No respiratory distress. Patient became increasingly short of breath just with the exertion of sitting up. HEART: Tachycardic, regular rhythm. No murmurs, gallops, or rubs. ABDOMEN: Soft, non-tender. Non-distended. Bowel sounds present in all 4 quadrants. No guarding, rigidity, or rebound. EXTREMITIES: Moves all 4 extremities spontaneously. No edema, radial and dorsalis pedis pulses 2/4 bilaterally. No cyanosis. NEUROLOGICAL: Alert and oriented x3. Normal speech. PSYCH: Normal affect, normal mood. SKIN: Warm, dry, normal turgor. No rashes or lesions noted. (CLINT RIVERA) Correction to general exam patient appears uncomfortable and short of breath. Correction to lung exam she is in moderate respiratory distress. (AMBER BARRETO) Course - Laboratory Result Diagrams: 11/28/17 17:00 11/28/17 17:00 <CLINT RIVERA - Last Filed: 11/28/17 18:25> - Laboratory Result Diagrams: 11/28/17 17:00 11/28/17 17:00 <AMBER BARRETO - Last Filed: 11/28/17 19:28> - Re-evaluation Re-evalutation: 11/28/17 18:44 Patient to meet sepsis criteria comes in referred from urgent care complaining of cough, fever, shortness of breath for the past day. At urgent care they treated her with Decadron, DuoNeb 3, albuterol, 1 and acetaminophen. Patient was afebrile when she arrived. Patient does have leukocytosis of 11.7, expiratory wheezing, rhonchi, right lower lobe pneumonia on chest x-ray and elevated lactic acid 2.8. She does meet sepsis criteria, patient has been started on Levaquin and fluids. Venous blood gas unremarkable, coags unremarkable. Chemistries do show a low potassium at 2.8 which is repleted by mouth, magnesium is normal, urinalysis shows elevated glucose but nothing else. EKG is nonischemic. (AMBER BARRETO) - Vital Signs Vital signs: Temp Pulse Resp BP Pulse Ox 98.4 F 110 H 29 H 135/67 H 92 11/28/17 16:31 11/28/17 16:31 11/28/17 17:00 11/28/17 16:48 11/28/17 17:00 - Laboratory Laboratory results interpreted by me: 11/28/17 11/28/17 11/28/17 17:00 17:00 17:00 WBC 11.7 H RDW 14.5 H Seg Neutrophils % 89.2 H Lymphocytes % 5.8 L Absolute Neutrophils 10.4 H Potassium 2.8 L* Glucose 226 H Lactic Acid 2.8 H Direct Bilirubin 0.6 H AST 56 H Urine Glucose (UA) 11/28/17 18:09 WBC RDW Seg Neutrophils % Lymphocytes % Absolute Neutrophils Potassium Glucose Lactic Acid Direct Bilirubin AST Urine Glucose (UA) 150 H - EKG Interpretation by Me Additional EKG results interpreted by me: 11/28/17 18:56 EKG shows sinus tachycardia at a rate of 102, slight left axis deviation, normal intervals, rapid R-wave progression, no ST segment elevations or depressions, T-wave flattening in V2 which is nonspecific per my interpretation. (AMBER BARRETO) Critical Care Note - Critical Care Note Total time excluding time spent on procedures (mins): 40 <AMBER BARRETO - Last Filed: 11/28/17 19:28> Discharge <LCINT RIVERA - Last Filed: 11/28/17 18:25> - Discharge [facility] Unit Admitted: [facility] <AMBER BARRETO - Last Filed: 11/28/17 19:28> - Discharge Clinical Impression: Right lower lobe pneumonia Qualifiers: Pneumonia type: due to unspecified organism Qualified Code(s): J18.1 - Lobar pneumonia, unspecified organism Sepsis Qualifiers: Sepsis type: sepsis due to unspecified organism Qualified Code(s): A41.9 - Sepsis, unspecified organism Condition: Fair Disposition: ADMITTED INPATIENT Referrals: HIPOLITO MCKEON MD [Primary Care Provider] - Follow up as needed Scribe Attestation: 11/28/17 19:28 I personally performed the services described in the documentation, reviewed and edited the documentation which was dictated to the scribe in my presence, and it accurately records my words and actions. (AMBER BARRETO) Scribe Documentation - Scribe Written by Scribe:: All Beasley, 11/28/2017 1838 acting as scribe for :: Paulette <CLINT RIVERA - Last Filed: 11/28/17 18:25> Sepsis <CLINT RIVERA - Last Filed: 11/28/17 18:25> - Sepsis Documentation Sepsis Patient: Yes - Cardiovascular Peripheral Pulse Strength: Normal Capillary refill: < 3 seconds Rhythm: Regular, Tachycardia Heart Sounds: Normal auscultation - Respiratory Breath Sounds: Rhonchi. negative: Wheezing - Skin Skin Color: Normal <AMBER BARRETO - Last Filed: 11/28/17 19:28> - Vital Signs Vitals: Temp Pulse Resp BP Pulse Ox 98.4 F 110 H 29 H 135/67 H 92 11/28/17 16:31 11/28/17 16:31 11/28/17 17:00 11/28/17 16:48 11/28/17 17:00 Current repeat vitals include temperature 98.4, heart rate of 102 bpm, blood pressure 138/74, pulse ox is 93% on 2 L, respiratory rate is 30. Capillary refill is less than 2 seconds, heart continues to be tachycardic without murmurs gallops or rubs, lungs have decreased wheezing but continued rhonchi now in the bilateral lower lobes. (AMBER BARRETO)
[2017-11-28 17:18] LABS: ABSOLUTE LYMPHOCYTES (AUTO) 0.7 10^3/uL (0.5-4.7); ABSOLUTE MONOCYTES (AUTO) 0.5 10^3/uL (0.1-1.4); ABSOLUTE NEUT (AUTO) 10.4 10^3/uL (1.7-8.2); BASOPHILS % (AUTO) 0.4 % (0-2); EOSINOPHILS % (AUTO) 0.2 % (0-6); HEMATOCRIT 40.6 % (36.0-47.0); HEMOGLOBIN 13.4 g/dL (12.0-15.5); LYMPHOCYTES % (AUTO) 5.8 % (13-45); MEAN CORPUSCULAR HEMOGLOBIN 29.3 pg (27.0-33.4); MEAN CORPUSCULAR HGB CONC 33.2 g/dL (32.0-36.0); MEAN CORPUSCULAR VOLUME 88 fl (80-97); MONOCYTES % (AUTO) 4.4 % (3-13); PLATELET COUNT 318 10^3/uL (150-450); RED BLOOD COUNT 4.59 10^6/uL (3.72-5.28); RED CELL DISTRIBUTION WIDTH 14.5 % (11.5-14.0); SEGMENTED NEUTROPHILS % (AUTO) 89.2 % (42-78); TOTAL CELLS COUNTED % (AUTO) 100 %; WHITE BLOOD COUNT 11.7 10^3/uL (4.0-10.5)
[2017-11-28 17:26] LABS: PROTHROMBIN TIME 12.6 SEC (11.4-15.4); VENOUS BLOOD BASE EXCESS 1.1 mmol/L; VENOUS BLOOD HCO3 25.9 mmol/L (20-32); VENOUS BLOOD PCO2 41.9 mmHg (35-63); VENOUS BLOOD PH 7.41 (7.30-7.42)
--- NOTE | 2017-11-28 17:29 | RADIOLOGY REPORT (SQ) ---
EXAM DESCRIPTION: CHEST SINGLE VIEW COMPLETED DATE/TIME: 11/28/2017 5:18 pm REASON FOR STUDY: cough, fever, hypoxia, suspect LLL PNA COMPARISON: 11/21/2017 EXAM PARAMETERS: NUMBER OF VIEWS: One view. TECHNIQUE: Single frontal radiographic view of the chest acquired. RADIATION DOSE: NA LIMITATIONS: None. FINDINGS: LUNGS AND PLEURA: Subsegmental airspace disease in the right lower lobe. The left lung is clear. MEDIASTINUM AND HILAR STRUCTURES: No masses. Contour normal. HEART AND VASCULAR STRUCTURES: Heart normal in size. Normal vasculature. BONES: No acute findings. HARDWARE: None in the chest. OTHER: No other significant finding. IMPRESSION: Right lower lobe pneumonia. TECHNICAL DOCUMENTATION: JOB ID: [id number] [employer]- All Rights Reserved Reading location - IP/workstation name: [email or web address]
--- NOTE | 2017-11-28 17:31 | EKG REPORT ---
SEVERITY:- OTHERWISE NORMAL ECG - SINUS TACHYCARDIA : Confirmed by: Rob Mace 28-Nov-2017 17:30:26
[2017-11-28 17:48] LABS: ALANINE AMINOTRANSFERASE 40 U/L (9-52); ALBUMIN 3.9 g/dL (3.5-5.0); ALKALINE PHOSPHATASE 120 U/L (38-126); ANION GAP 12 (5-19); ASPARTATE AMINO TRANSFERASE 56 U/L (14-36); BILIRUBIN,DIRECT 0.6 mg/dL (0.0-0.4); BILIRUBIN,TOTAL 0.6 mg/dL (0.2-1.3); BLOOD UREA NITROGEN 11 mg/dL (7-20); CALCIUM 9.1 mg/dL (8.4-10.2); CARBON DIOXIDE 28 mmol/L (22-30); CHLORIDE 101 mmol/L (98-107); GLUCOSE 226 mg/dL (75-110); SODIUM 140.9 mmol/L (137-145); TOTAL PROTEIN 6.9 g/dL (6.3-8.2)
[2017-11-28 17:57] LABS: POTASSIUM 2.8 mmol/L (3.6-5.0)
[2017-11-28] MEDS ORDERED: POTASSIUM CHLORIDE 20 MEQ/15 ML UDCUP PO ONE (17:58)
[2017-11-28] MEDS ORDERED: POTASSIUM CHLORIDE 10 MEQ TABLET.SA PO ONE (18:18)
[2017-11-28] MEDS ORDERED: ALBUTEROL SULFATE 0.083% NEB 2.5 MG/3 ML AMPUL NEB ONE (18:26)
[2017-11-28 18:28] LABS: APPEARANCE,URINE CLEAR; BILIRUBIN,URINE NEGATIVE (NEGATIVE); COLOR,URINE YELLOW; GLUCOSE, URINE 150 mg/dL (NEGATIVE); KETONES,URINE NEGATIVE (NEGATIVE); LEUKOCYTE ESTERASE,URINE NEGATIVE (NEGATIVE); NITRITE,URINE NEGATIVE (NEGATIVE); PROTEIN,URINE NEGATIVE (NEGATIVE); URINE SPECIFIC GRAVITY 1.009; UROBILINOGEN,URINE NEGATIVE mg/dL (<2.0)
[2017-11-28] MEDS ORDERED: GUAIFENESIN SYRP 200 MG/10 ML UDC PO PRN (18:37)
[2017-11-28] MEDS ORDERED: ACETAMINOPHEN 325 MG TABLET PO PRN (18:37)
[2017-11-28] MEDS ORDERED: METOCLOPRAMIDE HCL ORAL SOLN 10 MG/10 ML UDCUP PO ONE (18:56)
[2017-11-28] MEDS ORDERED: MAG HYDROX/AL HYDROX/SIMETH SUSP 30 ML UDCUP PO ONE (18:56)
[2017-11-28] MEDS ORDERED: LIDOCAINE 2% VISCOUS SOLN 20 ML UDCUP PO ONE (18:56)
[2017-11-28] MEDS: POTASSI CL 40 MEQ/NS 1L 1,000 ML IV PRN ×2 (19:31→22:31)
--- NOTE | 2017-11-28 19:37 | RADIOLOGY REPORT (SQ) ---
EXAM DESCRIPTION: CTA CHEST COMPLETED DATE/TIME: 11/28/2017 7:07 pm REASON FOR STUDY: difficulty breathing COMPARISON: 09/04/2016 TECHNIQUE: CT scan of the chest performed using helical scanning technique with dynamic intravenous contrast injection. Images reviewed with lung, soft tissue and bone windows. Reconstructed coronal and sagittal MPR images reviewed. Additional 3 dimensional post-processing performed to develop Maximal Intensity Projection images ([place] P). All images stored on PACS. All CT scanners at this facility use dose modulation, iterative reconstruction, and/or weight based d osing when appropriate to reduce radiation dose to as low as reasonably achievable (ALARA). [facility]: Dose Right [facility]: CareDose [facility]: Dose Right [facility]: Teradose 4D [facility]: Endologix CONTRAST TYPE AND DOSE: contrast/concentration: Isovue 370.00 mg/ml; Total Contrast Delivered: 65.0 ml; Total Saline Delivered: 80.0 ml Contrast bolus adequate for pulmonary arteries and aorta. RENAL FUNCTION: GFR > 60. RADIATION DOSE: CT Rad equipment meets quality standard of care and radiation dose reduction techniq ues were employed. CTDIvol: 15.3 - 24.8 mGy. DLP: 602 mGy-cm. . LIMITATIONS: Timing of contrast bolus. FINDINGS: LUNGS AND PLEURA: Subsegmental airspace disease in the right lower lobe and middle lobe. No effusions. AORTA AND GREAT VESSELS: No aneurysm. No dissection. HEART: No pericardial effusion. PULMONARY ARTERIES: No central PE. There is limited evaluation of the branches of the pulmonary olaf ry due to timing of contrast bolus. HILAR AND MEDIASTINAL STRUCTURES: No identified masses or abnormal nodes. HARDWARE: None in the chest. UPPER ABDOMEN: No significant findings. Limited exam. THYROID AND OTHER SOFT TISSUES: No masses. No adenopathy. BONES: No acute or significant finding. 3D MIPS: Confirm above findings. OTHER: No other significant finding. IMPRESSION: 1. No central PE. 2. Right lower lobe and middle lobe airspace disease. In the appropriate clinical setting this is co nsistent with pneumonia. COMMENT: Quality ID # [id number]: Final reports with documentation of one or more dose reduction techniques (e.g., Automated exposure control, adjustment of the mA and/or kV according to patient size, use of iterative reconstruction technique) TECHNICAL DOCUMENTATION: JOB ID: [id number]- All Rights Reserved Reading location - IP/workstation name: [email or web address]
--- NOTE | 2017-11-28 20:32 | PDOC H&P ---
History of Present Illness Admission Date/PCP: 11/28/17 19:26 HIPOLITO MCKEON MD Patient complains of: Fever and shortness of the breath and wheezing History of Present Illness: ALEJANDRO MINOR is a 76 year old female This is a 76-year-old female with a long-standing history of the smoking currently quit last year with a history of the COPD and history of the hypertension's came to the emergency departments from the urgent care with the couple of days history of the fever and cough and congestion's and audible wheezing and in the emergency department patient received the 1 dose of the Decadron and patient was referred to the ER Emergency department patient received IV Levaquin and the prednisone and respiratory treatments Initial chest x-ray suggested pneumonia I saw the patient's patients feeling better after the treatments the wheezing is also improved Patient CT angiogram is negative for any PE Also noticed some abdominal discomfort and the patient received a GI cocktail which completely resolved all the symptoms Patient's denied any chest pain denied any shortness of the breath denied any heart disease Patient otherwise doing well Patient's family on a bedside with the 's and the family patient's currently expressed to DNR Past Medical History Cardiac Medical History: Reports: Hypertension Denies: Coronary Artery Disease, Myocardial Infarction Pulmonary Medical History: Reports: Chronic Obstructive Pulmonary Disease (COPD) , Pneumonia Denies: Asthma, Bronchitis, Tuberculosis Neurological Medical History: Denies: Seizures Musculoskeltal Medical History: Reports: Arthritis Psychiatric Medical History: Denies: Depression Past Surgical History Past Surgical History: Reports: Cholecystectomy, Hysterectomy Social History Lives with: Family Smoking Status: Former Smoker Frequency of Alcohol Use: None Hx Recreational Drug Use: No Drugs: None Hx Prescription Drug Abuse: No Family History Family History: Reviewed & Not Pertinent Parental Family History Reviewed: Yes Children Family History Reviewed: Yes Sibling(s) Family History Reviewed.: Yes Medication/Allergy Home Medications: Budesonide/Formoterol Fumarate [Symbicort Hfa 160-4.5 Mcg Inhaler 6 gm] 2 puff IH Q12 02/05/17 Lisinopril [Lisinopril] 1 tab PO BID 02/05/17 Naproxen [Naproxen] 1 tab PO BID PRN 02/05/17 Albuterol Sulfate [Proair HFA Inhalation Aerosol 8.5 gm MDI] 2 puff IH Q4H PRN # 1 mdi 07/21/17 Doxycycline Hyclate 100 mg PO BID #14 capsule 07/21/17 Prednisone [Deltasone 10 mg Tablet] 10 mg PO ASDIR PRN #21 tablet 07/21/17 Diclofenac Sodium [Voltaren] 100 gm TP Q12H PRN #100 gel..gm. 11/21/17 Esomeprazole Magnesium [Nexium 24Hr] 20 mg PO DAILY #20 capsule. 11/21/17 Allergies/Adverse Reactions: Penicillins Allergy (Verified 11/28/17 16:15) Review of Systems Constitutional: ABSENT: chills, fever(s), headache(s), weight gain, weight loss Eyes: ABSENT: visual disturbances Ears: ABSENT: hearing changes Cardiovascular: ABSENT: chest pain, dyspnea on exertion, edema, orthropnea, palpitations Respiratory: PRESENT: cough, dyspnea. ABSENT: hemoptysis Gastrointestinal: ABSENT: abdominal pain, constipation, diarrhea, hematemesis, hematochezia, nausea, vomiting Genitourinary: ABSENT: dysuria, hematuria Musculoskeletal: ABSENT: joint swelling Integumentary: ABSENT: rash, wounds Neurological: ABSENT: abnormal gait, abnormal speech, confusion, dizziness, focal weakness, syncope Psychiatric: ABSENT: anxiety, depression, homidical ideation, suicidal ideation Endocrine: ABSENT: cold intolerance, heat intolerance, menstrual abnormalities, polydipsia, polyuria Hematologic/Lymphatic: ABSENT: easy bleeding, easy bruising, lymphadenopathy Physical Exam Vital Signs: Temp Pulse Resp BP Pulse Ox 98.4 F 110 H 29 H 135/67 H 92 11/28/17 16:31 11/28/17 16:31 11/28/17 17:00 11/28/17 16:48 11/28/17 17:00 General appearance: PRESENT: no acute distress, well-developed, well-nourished Head exam: PRESENT: atraumatic, normocephalic Eye exam: PRESENT: conjunctiva pink, EOMI, PERRLA. ABSENT: scleral icterus Ear exam: PRESENT: normal external ear exam Mouth exam: PRESENT: moist, tongue midline Neck exam: PRESENT: full ROM. ABSENT: carotid bruit, JVD, lymphadenopathy, thyromegaly Respiratory exam: PRESENT: clear to auscultation shital Cardiovascular exam: PRESENT: RRR. ABSENT: diastolic murmur, rubs, systolic murmur Pulses: PRESENT: normal dorsalis pedis pul, +2 pedal pulses bilateral Vascular exam: PRESENT: normal capillary refill GI/Abdominal exam: PRESENT: normal bowel sounds, soft. ABSENT: distended, guarding, mass, organolmegaly, rebound, tenderness Rectal exam: PRESENT: deferred Extremities exam: ABSENT: pedal edema Neurological exam: PRESENT: alert, awake, oriented to person, oriented to place , oriented to time, oriented to situation, CN II-XII grossly intact. ABSENT: motor sensory deficit Psychiatric exam: PRESENT: appropriate affect, normal mood. ABSENT: homicidal ideation, suicidal ideation Skin exam: PRESENT: dry, intact, warm. ABSENT: cyanosis, rash Results Laboratory Results: 11/28/17 19:40 NT-Pro-B Natriuret Pep 533 H Impressions: Chest/Abdomen CTA 11/28/17 00:00 IMPRESSION: 1. No central PE. 2. Right lower lobe and middle lobe airspace disease. In the appropriate clinical setting this is consistent with pneumonia. Chest X-Ray 11/28/17 17:04 IMPRESSION: Right lower lobe pneumonia. Assessment & Plan - Diagnosis (1) COPD with acute exacerbation Is this a current diagnosis for this admission?: Yes Plan: Continues on DuoNeb and IV steroid with a significant audible wheezing (2) Right lower lobe pneumonia Qualifiers: Pneumonia type: due to unspecified organism Qualified Code(s): J18.1 - Lobar pneumonia, unspecified organism Is this a current diagnosis for this admission?: Yes Plan: Continue IV Levaquin (3) Sepsis Qualifiers: Sepsis type: sepsis due to unspecified organism Qualified Code(s): A41.9 - Sepsis, unspecified organism Is this a current diagnosis for this admission?: Yes Plan: With get the blood culture urine culture and sputum culture continues to broad- spectrum antibiotic (4) Epigastric pain Is this a current diagnosis for this admission?: Yes Plan: We will put the patient on IV Protonix patient's response very well with the GI cocktail (5) Fever Qualifiers: Fever type: unspecified Qualified Code(s): R50.9 - Fever, unspecified Is this a current diagnosis for this admission?: Yes Plan: Likely from the pneumonia - Time Time Spent: 30 to 50 Minutes Medications reviewed and adjusted accordingly: Yes Anticipated discharge: Home Within: Other - Inpatient Certification Medical Necessity: Need Close Monitoring Due to Risk of Patient Decompensation, Need for IV Antibiotics Post Hospital Care: D/C Fish Smoker Documentation - Plan Summary Plan Summary: Discussed with the patient and the family and the bedside Patient expressed to DNR and DNI
[2017-11-28 21:55] LABS: CREATINE KINASE MB 0.51 ng/mL (<4.55)
[2017-11-28 21:59] LABS: TROPONIN I < 0.012 ng/mL
[2017-11-28] MEDS ORDERED: FAMOTIDINE 20 MG TABLET PO SCH (22:00)
[2017-11-28] MEDS ORDERED: METHYLPREDNISOLONE INJ 40 MG/1 ML SDV IV SCH (22:00)
[2017-11-28] MEDS: PANTOPRAZOLE SODIUM 40 MG VIAL IV SCH (22:30)
[2017-11-28] MEDS: METHYLPREDNISOLONE INJ 40 MG/1 ML SDV IV SCH (22:30)
[2017-11-29 03:18] LABS: HEMATOCRIT 36.1 % (36.0-47.0); MEAN CORPUSCULAR HEMOGLOBIN 29.4 pg (27.0-33.4); MEAN CORPUSCULAR HGB CONC 33.3 g/dL (32.0-36.0); MEAN CORPUSCULAR VOLUME 88 fl (80-97); PLATELET COUNT 280 10^3/uL (150-450); RED BLOOD COUNT 4.09 10^6/uL (3.72-5.28); RED CELL DISTRIBUTION WIDTH 14.4 % (11.5-14.0); WHITE BLOOD COUNT 10.2 10^3/uL (4.0-10.5)
[2017-11-29 03:32] LABS: ALANINE AMINOTRANSFERASE 35 U/L (9-52); ALKALINE PHOSPHATASE 91 U/L (38-126); ANION GAP 8 (5-19); ASPARTATE AMINO TRANSFERASE 28 U/L (14-36); BILIRUBIN,DIRECT 0.4 mg/dL (0.0-0.4); BILIRUBIN,TOTAL 0.4 mg/dL (0.2-1.3); BLOOD UREA NITROGEN 11 mg/dL (7-20); CALCIUM 9.3 mg/dL (8.4-10.2); CARBON DIOXIDE 24 mmol/L (22-30); CHLORIDE 111 mmol/L (98-107); GLUCOSE 138 mg/dL (75-110); POTASSIUM 4.3 mmol/L (3.6-5.0); SODIUM 142.6 mmol/L (137-145); TOTAL PROTEIN 5.5 g/dL (6.3-8.2)
[2017-11-29 03:38] LABS: ABSOLUTE LYMPHOCYTES# (MANUAL) 0.3 10^3/uL (0.5-4.7); ABSOLUTE MONOCYTES # (MANUAL) 0.2 10^3/uL (0.1-1.4); ABSOLUTE NEUTROPHILS# (MANUAL) 9.7 10^3/uL (1.7-8.2); BAND NEUTROPHILS % (MANUAL) 3 % (3-5); BASOPHILS % (MANUAL) 0 % (0-2); EOSINOPHILS % (MANUAL) 0 % (0-6); LYMPHOCYTES % (MANUAL) 3 % (13-45); METAMYELOCYTES % (MANUAL) 1 % (0); MONOCYTES % (MANUAL) 2 % (3-13); SEGMENTED NEUTROPHILS % (MAN) 91 % (42-78); TOTAL CELLS COUNTED 100
[2017-11-29 03:42] LABS: PLATELET COMMENT ADEQUATE
[2017-11-29 03:44] LABS: CREATINE KINASE MB 0.71 ng/mL (<4.55)
[2017-11-29 03:48] LABS: TROPONIN I < 0.012 ng/mL
[2017-11-29] MEDS: POTASSI CL 40 MEQ/NS 1L 1,000 ML IV PRN (05:46)
[2017-11-29] MEDS: METHYLPREDNISOLONE INJ 40 MG/1 ML SDV IV SCH ×3 (05:46→22:14)
[2017-11-29] MEDS: LEVOFLOXACIN 750 MG/D5W RTU 750 MG/150 ML RTUPB IV SCH (09:39)
[2017-11-29] MEDS: ENOXAPARIN SODIUM INJ 40 MG/0.4 ML DISP.SYRIN SUBCUT SCH (09:42)
[2017-11-29] MEDS: PANTOPRAZOLE SODIUM 40 MG VIAL IV SCH ×2 (09:42→22:14)
[2017-11-29 09:53] LABS: CREATINE KINASE MB 0.84 ng/mL (<4.55)
[2017-11-29 10:00] LABS: TROPONIN I < 0.012 ng/mL
--- NOTE | 2017-11-29 11:00 | PDOC PROGRESS REPORT ---
Subjective Progress Note for:: 11/29/17 Subjective:: Patient is feeling much better She has denied any chest pain denied any shortness of the breath Reason For Visit: PNEUMONIA Physical Exam Vital Signs: Temp Pulse Resp BP Pulse Ox 97.4 F 86 16 109/49 L 99 11/29/17 02:50 11/29/17 02:50 11/29/17 02:50 11/29/17 02:50 11/29/17 02:50 Intake & Output 11/28/17 11/29/17 11/30/17 06:59 06:59 06:59 Intake Total 1050 Balance 1050 Weight 68.1 kg General appearance: PRESENT: no acute distress, well-developed, well-nourished Head exam: PRESENT: atraumatic, normocephalic Eye exam: PRESENT: conjunctiva pink, EOMI, PERRLA. ABSENT: scleral icterus Ear exam: PRESENT: normal external ear exam Mouth exam: PRESENT: moist, tongue midline Neck exam: PRESENT: full ROM. ABSENT: carotid bruit, JVD, lymphadenopathy, thyromegaly Respiratory exam: PRESENT: clear to auscultation shital Cardiovascular exam: PRESENT: RRR. ABSENT: diastolic murmur, rubs, systolic murmur Pulses: PRESENT: normal dorsalis pedis pul, +2 pedal pulses bilateral Vascular exam: PRESENT: normal capillary refill GI/Abdominal exam: PRESENT: normal bowel sounds, soft. ABSENT: distended, guarding, mass, organolmegaly, rebound, tenderness Rectal exam: PRESENT: deferred Extremities exam: ABSENT: pedal edema Neurological exam: PRESENT: alert, awake, oriented to person, oriented to place , oriented to time, oriented to situation, CN II-XII grossly intact. ABSENT: motor sensory deficit Psychiatric exam: PRESENT: appropriate affect, normal mood. ABSENT: homicidal ideation, suicidal ideation Skin exam: PRESENT: dry, intact, warm. ABSENT: cyanosis, rash Results Laboratory Results: 11/29/17 03:09 11/29/17 03:09 11/28/17 11/28/17 11/29/17 21:00 21:00 03:09 WBC 10.2 RBC 4.09 Hgb 12.0 Hct 36.1 MCV 88 MCH 29.4 MCHC 33.3 RDW 14.4 H Plt Count 280 Seg Neutrophils % Not Reportable Lymphocytes % Not Reportable Monocytes % Not Reportable Eosinophils % Not Reportable Basophils % Not Reportable Absolute Neutrophils Not Reportable Absolute Lymphocytes Not Reportable Absolute Monocytes Not Reportable Absolute Eosinophils Not Reportable Absolute Basophils Not Reportable Sodium Potassium 3.4 L Chloride Carbon Dioxide Anion Gap BUN Creatinine Est GFR ( Amer) Est GFR (Non-Af Amer) Glucose Lactic Acid 4.4 H Calcium Total Bilirubin AST ALT Alkaline Phosphatase Total Protein Albumin 11/29/17 03:09 WBC RBC Hgb Hct MCV MCH MCHC RDW Plt Count Seg Neutrophils % Lymphocytes % Monocytes % Eosinophils % Basophils % Absolute Neutrophils Absolute Lymphocytes Absolute Monocytes Absolute Eosinophils Absolute Basophils Sodium 142.6 Potassium 4.3 Chloride 111 H Carbon Dioxide 24 Anion Gap 8 BUN 11 Creatinine 0.56 Est GFR ( Amer) > 60 Est GFR (Non-Af Amer) > 60 Glucose 138 H Lactic Acid Calcium 9.3 Total Bilirubin 0.4 AST 28 ALT 35 Alkaline Phosphatase 91 Total Protein 5.5 L Albumin 3.0 L 11/28/17 11/28/17 11/28/17 19:40 21:00 21:00 Creatine Kinase 30 CK-MB (CK-2) 0.51 Troponin I < 0.012 NT-Pro-B Natriuret Pep 533 H 11/29/17 11/29/17 11/29/17 03:09 03:09 08:52 Creatine Kinase 27 L 26 L CK-MB (CK-2) 0.71 Troponin I < 0.012 NT-Pro-B Natriuret Pep 11/29/17 08:52 Creatine Kinase CK-MB (CK-2) 0.84 Troponin I < 0.012 NT-Pro-B Natriuret Pep Impressions: Chest/Abdomen CTA 11/28/17 00:00 IMPRESSION: 1. No central PE. 2. Right lower lobe and middle lobe airspace disease. In the appropriate clinical setting this is consistent with pneumonia. Chest X-Ray 11/28/17 17:04 IMPRESSION: Right lower lobe pneumonia. Assessment & Plan - Diagnosis (1) COPD with acute exacerbation Is this a current diagnosis for this admission?: Yes Plan: Reduce to IV steroid (2) Right lower lobe pneumonia Qualifiers: Pneumonia type: due to unspecified organism Qualified Code(s): J18.1 - Lobar pneumonia, unspecified organism Is this a current diagnosis for this admission?: Yes Plan: Continue IV Levaquin (3) Sepsis Qualifiers: Sepsis type: sepsis due to unspecified organism Qualified Code(s): A41.9 - Sepsis, unspecified organism Is this a current diagnosis for this admission?: Yes Plan: With get the blood culture urine culture and sputum culture continues to broad- spectrum antibiotic (4) Epigastric pain Is this a current diagnosis for this admission?: Yes (5) Fever Qualifiers: Fever type: unspecified Qualified Code(s): R50.9 - Fever, unspecified Is this a current diagnosis for this admission?: Yes Plan: Likely from the pneumonia - Time Time Spent with patient: 15-24 minutes Medications reviewed and adjusted accordingly: Yes Anticipated discharge: Home Within: Other - Inpatient Certification Medical Necessity: Need Close Monitoring Due to Risk of Patient Decompensation, Need For IV Fluids, Need for IV Antibiotics Post Hospital Care: D/C Process Helper Documentation - Plan Summary Plan Summary: Continues to current IV antibiotic
[2017-11-29] MEDS ORDERED: METOCLOPRAMIDE HCL ORAL SOLN 10 MG/10 ML UDCUP PO PRN (12:59)
[2017-11-29] MEDS ORDERED: MAG HYDROX/AL HYDROX/SIMETH SUSP 30 ML UDCUP PO PRN (12:59)
[2017-11-29] MEDS ORDERED: LIDOCAINE 2% VISCOUS SOLN 20 ML UDCUP PO PRN (12:59)
[2017-11-29] MEDS ORDERED: IPRATROPIUM/ALBUTEROL 0.5-2.5 MG/3 ML AMPUL NEB PRN (14:29)
[2017-11-29] MEDS: IPRATROPIUM/ALBUTEROL 0.5-2.5 MG/3 ML AMPUL NEB PRN (14:29)
--- NOTE | 2017-11-29 16:42 | RADIOLOGY REPORT (SQ) ---
EXAM DESCRIPTION: CT ABD/PELVIS NO ORAL OR IV COMPLETED DATE/TIME: 11/29/2017 4:30 pm REASON FOR STUDY: severe abdominal pain COMPARISON: 04/24/2016 TECHNIQUE: CT scan of the abdomen and pelvis performed without intravenous or oral contrast. Images reviewed with lung, soft tissue, and bone windows. Reconstructed coronal and sagittal MPR images revi ewed. All images stored on PACS. All CT scanners at this facility use dose modulation, iterative reconstruction, and/or weight based d osing when appropriate to reduce radiation dose to as low as reasonably achievable (ALARA). [facility]: Dose Right [facility]: CareDose [facility]: Dose Right [facility]: Teradose 4D [facility]: Smart TranquilMed RADIATION DOSE: CT Rad equipment meets quality standard of care and radiation dose reduction techniq ues were employed. CTDIvol: 11.5 mGy. DLP: 544 mGy-cm.mGy. LIMITATIONS: None. FINDINGS: LOWER CHEST: Subsegmental airspace disease in the right lower lobe could represent atelect asis, aspiration or infection. Clinical correlation is needed. NON-CONTRASTED LIVER, SPLEEN, ADRENALS: Evaluation limited by lack of IV contrast. No identified sign ificant masses. PANCREAS: No masses. No peripancreatic inflammatory changes. GALLBLADDER: Surgically absent. RIGHT KIDNEY AND URETER: No suspicious masses. Assessment limited by lack of IV contrast. No signif icant calcifications. No hydronephrosis or hydroureter. LEFT KIDNEY AND URETER: No suspicious masses. Assessment limited by lack of IV contrast. No signifi cant calcifications. No hydronephrosis or hydroureter. AORTA AND RETROPERITONEUM: No aneurysm. No retroperitoneal masses or adenopathy. BOWEL AND PERITONEAL CAVITY: No obvious masses or inflammatory changes. No free fluid. APPENDIX: Not visualized. PELVIS, BLADDER, AND ABDOMINAL WALL:No abnormal masses. No free fluid. Bladder normal. BONES: No significant findings. OTHER: No other significant finding. IMPRESSION: 1. No acute findings in the abdomen. 2. Right lower lobe atelectasis or early pneumonia. COMMENT: Quality ID # [id number]: Final reports with documentation of one or more dose reduction techniques (e.g., Automated exposure control, adjustment of the mA and/or kV according to patient size, use of iterative reconstruction technique) TECHNICAL DOCUMENTATION: JOB ID: [id number]- All Rights Reserved Reading location - IP/workstation name: [email or web address]
--- NOTE | 2017-11-29 19:49 | PDOC CONSULTATION ---
History of Present Illness Admission Date/PCP: 11/28/17 19:26 HIPOLITO MCKEON MD Patient complains of: Severe right upper abdominal pains History of Present Illness: ALEJANDRO MINOR is a 76 year old female who is admitted for pneumonia, c/o severe right upper quadrant pains this am. She had cholecystectomy done in the past. Past Medical History Cardiac Medical History: Reports: Hypertension Denies: Coronary Artery Disease, Myocardial Infarction Pulmonary Medical History: Reports: Chronic Obstructive Pulmonary Disease (COPD) , Pneumonia Denies: Asthma, Bronchitis, Tuberculosis Neurological Medical History: Denies: Seizures Musculoskeltal Medical History: Reports: Arthritis Psychiatric Medical History: Denies: Depression Past Surgical History Past Surgical History: Reports: Cholecystectomy, Hysterectomy Social History Lives with: Family Smoking Status: Former Smoker Frequency of Alcohol Use: None Hx Recreational Drug Use: No Drugs: None Hx Prescription Drug Abuse: No Family History Family History: Reviewed & Not Pertinent Parental Family History Reviewed: Yes Children Family History Reviewed: No Sibling(s) Family History Reviewed.: No Medication/Allergy Home Medications: Budesonide/Formoterol Fumarate [Symbicort Hfa 160-4.5 Mcg Inhaler 6 gm] 2 puff IH Q12 02/05/17 Lisinopril [Lisinopril] 1 tab PO BID 02/05/17 Esomeprazole Magnesium [Nexium 24Hr] 20 mg PO DAILY #20 capsule. 11/21/17 Umeclidinium Brm/Vilanterol Tr [Anoro Ellipta 62.5-25 Mcg INH] 1 each IH DAILY 11/29/17 Allergies/Adverse Reactions: Penicillins Allergy (Verified 11/28/17 16:15) Review of Systems Eyes: PRESENT: other - no visual/hearing changes Respiratory: PRESENT: cough Gastrointestinal: PRESENT: abdominal pain - RUQ Neurological: PRESENT: other - no convulsions Endocrine: PRESENT: other - no polydipsia Hematologic/Lymphatic: PRESENT: other - no easy bruising Physical Exam Vital Signs: Temp Pulse Resp BP Pulse Ox 98.0 F 93 16 115/49 L 97 11/29/17 15:38 11/29/17 15:38 11/29/17 15:38 11/29/17 15:38 11/29/17 15:38 Intake & Output 06/02/18 06/03/18 06/04/18 06:59 06:59 06:59 Intake Total 1050 1448 Balance 1050 1448 Weight 68.1 kg General appearance: PRESENT: mild distress Eye exam: PRESENT: conjunctiva pink Mouth exam: PRESENT: moist Neck exam: PRESENT: full ROM Respiratory exam: PRESENT: decreased breath sounds Cardiovascular exam: PRESENT: RRR Pulses: PRESENT: normal radial pulses Vascular exam: PRESENT: normal capillary refill GI/Abdominal exam: PRESENT: soft, tenderness - RUQ Rectal exam: PRESENT: deferred Extremities exam: PRESENT: full ROM Musculoskeletal exam: PRESENT: ambulatory Neurological exam: PRESENT: alert, oriented to person, oriented to place, oriented to time, oriented to situation Psychiatric exam: PRESENT: appropriate affect Skin exam: PRESENT: normal color, warm Results Laboratory Results: 11/29/17 03:09 11/29/17 03:09 11/28/17 11/28/17 11/29/17 21:00 21:00 03:09 WBC 10.2 RBC 4.09 Hgb 12.0 Hct 36.1 MCV 88 MCH 29.4 MCHC 33.3 RDW 14.4 H Plt Count 280 Seg Neutrophils % Not Reportable Lymphocytes % Not Reportable Monocytes % Not Reportable Eosinophils % Not Reportable Basophils % Not Reportable Absolute Neutrophils Not Reportable Absolute Lymphocytes Not Reportable Absolute Monocytes Not Reportable Absolute Eosinophils Not Reportable Absolute Basophils Not Reportable Sodium Potassium 3.4 L Chloride Carbon Dioxide Anion Gap BUN Creatinine Est GFR ( Amer) Est GFR (Non-Af Amer) Glucose Lactic Acid 4.4 H Calcium Total Bilirubin AST ALT Alkaline Phosphatase Total Protein Albumin 11/29/17 03:09 WBC RBC Hgb Hct MCV MCH MCHC RDW Plt Count Seg Neutrophils % Lymphocytes % Monocytes % Eosinophils % Basophils % Absolute Neutrophils Absolute Lymphocytes Absolute Monocytes Absolute Eosinophils Absolute Basophils Sodium 142.6 Potassium 4.3 Chloride 111 H Carbon Dioxide 24 Anion Gap 8 BUN 11 Creatinine 0.56 Est GFR ( Amer) > 60 Est GFR (Non-Af Amer) > 60 Glucose 138 H Lactic Acid Calcium 9.3 Total Bilirubin 0.4 AST 28 ALT 35 Alkaline Phosphatase 91 Total Protein 5.5 L Albumin 3.0 L 11/28/17 11/28/17 11/28/17 19:40 21:00 21:00 Creatine Kinase 30 CK-MB (CK-2) 0.51 Troponin I < 0.012 NT-Pro-B Natriuret Pep 533 H 11/29/17 11/29/17 11/29/17 03:09 03:09 08:52 Creatine Kinase 27 L 26 L CK-MB (CK-2) 0.71 Troponin I < 0.012 NT-Pro-B Natriuret Pep 11/29/17 08:52 Creatine Kinase CK-MB (CK-2) 0.84 Troponin I < 0.012 NT-Pro-B Natriuret Pep Impressions: Chest/Abdomen CTA 11/28/17 00:00 IMPRESSION: 1. No central PE. 2. Right lower lobe and middle lobe airspace disease. In the appropriate clinical setting this is consistent with pneumonia. Chest X-Ray 11/28/17 17:04 IMPRESSION: Right lower lobe pneumonia. Abdomen/Pelvis CT 11/29/17 12:34 IMPRESSION: 1. No acute findings in the abdomen. 2. Right lower lobe atelectasis or early pneumonia. Assessment & Plan - Diagnosis (1) Referred upper abdominal pain Is this a current diagnosis for this admission?: Yes - Time Time Spent: 30 to 50 Minutes - Plan Summary Plan Summary: She had a CT scan of abd/pelvis that is essentially normal. Pains likely referred from Pneumonia Patient re-examined and feeling better after CT scan. Minimal tenderness RUQ. Will sign off. Thanks
[2017-11-30] MEDS: METHYLPREDNISOLONE INJ 40 MG/1 ML SDV IV SCH ×2 (06:35→13:54)
[2017-11-30 06:39] LABS: ABSOLUTE BASOPHILS # (AUTO) 0.1 10^3/uL (0.0-0.2); ABSOLUTE LYMPHOCYTES (AUTO) 0.9 10^3/uL (0.5-4.7); ABSOLUTE MONOCYTES (AUTO) 0.8 10^3/uL (0.1-1.4); ABSOLUTE NEUT (AUTO) 14.2 10^3/uL (1.7-8.2); BASOPHILS % (AUTO) 0.6 % (0-2); HEMATOCRIT 34.5 % (36.0-47.0); HEMOGLOBIN 11.7 g/dL (12.0-15.5); LYMPHOCYTES % (AUTO) 5.7 % (13-45); MEAN CORPUSCULAR HEMOGLOBIN 29.9 pg (27.0-33.4); MEAN CORPUSCULAR VOLUME 88 fl (80-97); MONOCYTES % (AUTO) 4.8 % (3-13); PLATELET COUNT 340 10^3/uL (150-450); RED BLOOD COUNT 3.92 10^6/uL (3.72-5.28); RED CELL DISTRIBUTION WIDTH 14.8 % (11.5-14.0); SEGMENTED NEUTROPHILS % (AUTO) 88.9 % (42-78); TOTAL CELLS COUNTED % (AUTO) 100 %
[2017-11-30 07:04] LABS: ALANINE AMINOTRANSFERASE 31 U/L (9-52); ALBUMIN 2.9 g/dL (3.5-5.0); ALKALINE PHOSPHATASE 86 U/L (38-126); ANION GAP 7 (5-19); ASPARTATE AMINO TRANSFERASE 17 U/L (14-36); BILIRUBIN,DIRECT 0.2 mg/dL (0.0-0.4); BILIRUBIN,TOTAL 0.2 mg/dL (0.2-1.3); BLOOD UREA NITROGEN 15 mg/dL (7-20); CALCIUM 9.2 mg/dL (8.4-10.2); CARBON DIOXIDE 25 mmol/L (22-30); CHLORIDE 109 mmol/L (98-107); GLUCOSE 125 mg/dL (75-110); POTASSIUM 4.6 mmol/L (3.6-5.0); SODIUM 140.7 mmol/L (137-145); TOTAL PROTEIN 5.4 g/dL (6.3-8.2)
[2017-11-30] MEDS: ENOXAPARIN SODIUM INJ 40 MG/0.4 ML DISP.SYRIN SUBCUT SCH (08:27)
[2017-11-30] MEDS: PANTOPRAZOLE SODIUM 40 MG VIAL IV SCH ×2 (08:27→22:52)
[2017-11-30] MEDS: LEVOFLOXACIN 750 MG/D5W RTU 750 MG/150 ML RTUPB IV SCH (08:28)
[2017-11-30] MEDS: IPRATROPIUM/ALBUTEROL 0.5-2.5 MG/3 ML AMPUL NEB PRN (10:46)
[2017-11-30] MEDS ORDERED: BUSPIRONE HCL 10 MG TABLET PO ONE (15:00)
--- NOTE | 2017-11-30 21:31 | PDOC PROGRESS REPORT ---
Subjective Progress Note for:: 11/30/17 Subjective:: , she was seen by the bedside, she was admitted over the weekend for the management of pneumonia/COPD Reason For Visit: PNEUMONIA Physical Exam Vital Signs: Temp Pulse Resp BP Pulse Ox 97.7 F 86 16 128/59 H 98 11/30/17 15:06 11/30/17 15:06 11/30/17 15:06 11/30/17 15:06 11/30/17 15:06 Intake & Output 11/29/17 11/30/17 12/01/17 06:59 06:59 06:59 Intake Total 1050 1653 714 Balance 1050 1653 714 Weight 68.1 kg 69.4 kg General appearance: PRESENT: no acute distress Eye exam: PRESENT: PERRLA Respiratory exam: PRESENT: wheezes Cardiovascular exam: PRESENT: +S1, +S2 Neurological exam: PRESENT: alert, CN II-XII grossly intact Results Laboratory Results: 11/30/17 05:59 11/30/17 05:59 11/30/17 11/30/17 05:59 05:59 WBC 16.0 H RBC 3.92 Hgb 11.7 L Hct 34.5 L MCV 88 MCH 29.9 MCHC 34.0 RDW 14.8 H Plt Count 340 Seg Neutrophils % 88.9 H Lymphocytes % 5.7 L Monocytes % 4.8 Eosinophils % 0.0 Basophils % 0.6 Absolute Neutrophils 14.2 H Absolute Lymphocytes 0.9 Absolute Monocytes 0.8 Absolute Eosinophils 0.0 Absolute Basophils 0.1 Sodium 140.7 Potassium 4.6 Chloride 109 H Carbon Dioxide 25 Anion Gap 7 BUN 15 Creatinine 0.72 Est GFR ( Amer) > 60 Est GFR (Non-Af Amer) > 60 Glucose 125 H Calcium 9.2 Total Bilirubin 0.2 AST 17 ALT 31 Alkaline Phosphatase 86 Total Protein 5.4 L Albumin 2.9 L 11/28/17 11/28/17 11/28/17 19:40 21:00 21:00 Creatine Kinase 30 CK-MB (CK-2) 0.51 Troponin I < 0.012 NT-Pro-B Natriuret Pep 533 H 11/29/17 11/29/17 11/29/17 03:09 03:09 08:52 Creatine Kinase 27 L 26 L CK-MB (CK-2) 0.71 Troponin I < 0.012 NT-Pro-B Natriuret Pep 11/29/17 08:52 Creatine Kinase CK-MB (CK-2) 0.84 Troponin I < 0.012 NT-Pro-B Natriuret Pep Impressions: Chest/Abdomen CTA 11/28/17 00:00 IMPRESSION: 1. No central PE. 2. Right lower lobe and middle lobe airspace disease. In the appropriate clinical setting this is consistent with pneumonia. Chest X-Ray 11/28/17 17:04 IMPRESSION: Right lower lobe pneumonia. Abdomen/Pelvis CT 11/29/17 12:34 IMPRESSION: 1. No acute findings in the abdomen. 2. Right lower lobe atelectasis or early pneumonia. Assessment & Plan - Diagnosis (1) COPD with acute exacerbation Is this a current diagnosis for this admission?: Yes Plan: Plan discontinue Solu-Medrol start p.o. prednisone (2) Right lower lobe pneumonia Qualifiers: Pneumonia type: due to unspecified organism Qualified Code(s): J18.1 - Lobar pneumonia, unspecified organism Is this a current diagnosis for this admission?: Yes
[2017-11-30] MEDS ORDERED: PREDNISONE 10 MG TABLET PO ONE (22:00)
[2017-11-30] MEDS: BUSPIRONE HCL 10 MG TABLET PO SCH (22:52)
[2017-12-01 07:17] LABS: HEMATOCRIT 36.9 % (36.0-47.0); HEMOGLOBIN 12.4 g/dL (12.0-15.5); MEAN CORPUSCULAR HEMOGLOBIN 29.7 pg (27.0-33.4); MEAN CORPUSCULAR HGB CONC 33.7 g/dL (32.0-36.0); MEAN CORPUSCULAR VOLUME 88 fl (80-97); PLATELET COUNT 405 10^3/uL (150-450); RED BLOOD COUNT 4.19 10^6/uL (3.72-5.28); RED CELL DISTRIBUTION WIDTH 14.7 % (11.5-14.0)
[2017-12-01 07:30] LABS: ALANINE AMINOTRANSFERASE 30 U/L (9-52); ALKALINE PHOSPHATASE 85 U/L (38-126); ANION GAP 8 (5-19); ASPARTATE AMINO TRANSFERASE 17 U/L (14-36); BILIRUBIN,DIRECT 0.2 mg/dL (0.0-0.4); BILIRUBIN,TOTAL 0.2 mg/dL (0.2-1.3); BLOOD UREA NITROGEN 23 mg/dL (7-20); CALCIUM 9.1 mg/dL (8.4-10.2); CARBON DIOXIDE 26 mmol/L (22-30); CHLORIDE 106 mmol/L (98-107); GLUCOSE 114 mg/dL (75-110); POTASSIUM 4.7 mmol/L (3.6-5.0); TOTAL PROTEIN 5.5 g/dL (6.3-8.2)
[2017-12-01 08:04] LABS: ABSOLUTE LYMPHOCYTES# (MANUAL) 0.4 10^3/uL (0.5-4.7); ABSOLUTE MONOCYTES # (MANUAL) 0.4 10^3/uL (0.1-1.4); ABSOLUTE NEUTROPHILS# (MANUAL) 12.2 10^3/uL (1.7-8.2); BASOPHILS % (MANUAL) 0 % (0-2); EOSINOPHILS % (MANUAL) 0 % (0-6); LYMPHOCYTES % (MANUAL) 3 % (13-45); METAMYELOCYTES % (MANUAL) 2 % (0); MONOCYTES % (MANUAL) 3 % (3-13); SEGMENTED NEUTROPHILS % (MAN) 92 % (42-78); TOTAL CELLS COUNTED 100; TOXIC GRANULATION SLIGHT; TOXIC VACUOLATION PRESENT
[2017-12-01 08:05] LABS: HYPOCHROMASIA SLIGHT; PLATELET COMMENT ADEQUATE; POLYCHROMASIA SLIGHT
[2017-12-01] MEDS ORDERED: PREDNISONE 10 MG TABLET PO SCH (10:00)
[2017-12-01] MEDS: ENOXAPARIN SODIUM INJ 40 MG/0.4 ML DISP.SYRIN SUBCUT SCH (10:45)
[2017-12-01] MEDS: LEVOFLOXACIN 750 MG/D5W RTU 750 MG/150 ML RTUPB IV SCH (10:46)
[2017-12-01] MEDS: PANTOPRAZOLE SODIUM 40 MG VIAL IV SCH (10:46)
[2017-12-01] MEDS: BUSPIRONE HCL 10 MG TABLET PO SCH (10:46)
[2017-12-01] MEDS ORDERED: LEVOFLOXACIN 500 MG TABLET PO ONE (13:00)
[2017-12-01 14:39] VITALS: BP 145/75
--- NOTE | 2017-12-01 21:17 | PDOC DISCHARGE SUMMARY ---
General - Admit/Disc Date/PCP Admission Date/Primary Care Provider: 11/28/17 19:26 HIPOLITO MCKEON MD Discharge Date: 12/01/17 - Discharge Diagnosis (1) COPD with acute exacerbation Is this a current diagnosis for this admission?: Yes (2) Right lower lobe pneumonia Is this a current diagnosis for this admission?: Yes - Additional Information Discharge Diet: As Tolerated Discharge Activity: Activity As Tolerated, Balance Activity w/Rest Prescriptions: Levofloxacin [Levaquin 750 mg Tablet] 750 mg PO DAILY #10 Prednisone 20 mg PO DAILY #5 tablet Home Medications: Budesonide/Formoterol Fumarate [Symbicort Hfa 160-4.5 Mcg Inhaler 6 gm] 2 puff IH Q12 02/05/17 Lisinopril [Lisinopril] 1 tab PO BID 02/05/17 Esomeprazole Magnesium [Nexium 24Hr] 20 mg PO DAILY #20 capsule. 11/21/17 Umeclidinium Brm/Vilanterol Tr [Anoro Ellipta 62.5-25 Mcg INH] 1 each IH DAILY 11/29/17 Levofloxacin [Levaquin 750 mg Tablet] 750 mg PO DAILY #10 12/01/17 Prednisone 20 mg PO DAILY #5 tablet 12/01/17 History of Present Illness History of Present Illness: ALEJANDRO MINOR is a 76 year old female,She was admitted for the management of COPD and pneumonia Hospital Course Hospital Course: She was admitted when she presented with shortness of breath CT scan shows COPD there was no definitive consolidation. She was treated with IV antibiotic, supplemental oxygen, bronchodilators and intravenous solumedrol She did not require noninvasive ventilation on this admission Physical Exam Vital Signs: Temp Pulse Resp BP Pulse Ox 98.1 F 69 20 145/75 H 94 12/01/17 14:37 12/01/17 14:37 12/01/17 14:37 12/01/17 14:37 12/01/17 14:37 Intake & Output 11/30/17 12/01/17 12/02/17 06:59 06:59 06:59 Intake Total 1653 719 550 Balance 1653 719 550 Weight 69.4 kg 69.5 kg General appearance: PRESENT: no acute distress, well-developed, well-nourished Head exam: PRESENT: atraumatic, normocephalic Eye exam: PRESENT: conjunctiva pink, EOMI, PERRLA Ear exam: PRESENT: normal external ear exam Mouth exam: PRESENT: moist, tongue midline Neck exam: PRESENT: full ROM Respiratory exam: PRESENT: clear to auscultation shital Cardiovascular exam: PRESENT: RRR, +S1, +S2 Pulses: PRESENT: normal dorsalis pedis pul, +2 pedal pulses bilateral Vascular exam: PRESENT: normal capillary refill GI/Abdominal exam: PRESENT: normal bowel sounds, soft Rectal exam: PRESENT: deferred Neurological exam: PRESENT: alert, awake, oriented to person, oriented to place , oriented to time, oriented to situation, CN II-XII grossly intact Psychiatric exam: PRESENT: appropriate affect, normal mood Skin exam: PRESENT: dry, intact, warm Results Laboratory Results: 12/01/17 06:04 12/01/17 06:04 12/01/17 12/01/17 06:04 06:04 WBC 13.0 H RBC 4.19 Hgb 12.4 Hct 36.9 MCV 88 MCH 29.7 MCHC 33.7 RDW 14.7 H Plt Count 405 Seg Neutrophils % Not Reportable Lymphocytes % Not Reportable Monocytes % Not Reportable Eosinophils % Not Reportable Basophils % Not Reportable Absolute Neutrophils Not Reportable Absolute Lymphocytes Not Reportable Absolute Monocytes Not Reportable Absolute Eosinophils Not Reportable Absolute Basophils Not Reportable Sodium 140.0 Potassium 4.7 Chloride 106 Carbon Dioxide 26 Anion Gap 8 BUN 23 H Creatinine 0.75 Est GFR ( Amer) > 60 Est GFR (Non-Af Amer) > 60 Glucose 114 H Calcium 9.1 Total Bilirubin 0.2 AST 17 ALT 30 Alkaline Phosphatase 85 Total Protein 5.5 L Albumin 3.0 L 11/28/17 21:13 Sputum Gram Stain - Final 11/28/17 21:13 Sputum Sputum Culture - Final Haemophilus Influenzae Reduced Normal Viky 11/28/17 11/28/17 11/28/17 19:40 21:00 21:00 Creatine Kinase 30 CK-MB (CK-2) 0.51 Troponin I < 0.012 NT-Pro-B Natriuret Pep 533 H 11/29/17 11/29/17 11/29/17 03:09 03:09 08:52 Creatine Kinase 27 L 26 L CK-MB (CK-2) 0.71 Troponin I < 0.012 NT-Pro-B Natriuret Pep 11/29/17 08:52 Creatine Kinase CK-MB (CK-2) 0.84 Troponin I < 0.012 NT-Pro-B Natriuret Pep Impressions: Chest/Abdomen CTA 11/28/17 00:00 IMPRESSION: 1. No central PE. 2. Right lower lobe and middle lobe airspace disease. In the appropriate clinical setting this is consistent with pneumonia. Chest X-Ray 11/28/17 17:04 IMPRESSION: Right lower lobe pneumonia. Abdomen/Pelvis CT 11/29/17 12:34 IMPRESSION: 1. No acute findings in the abdomen. 2. Right lower lobe atelectasis or early pneumonia. Qualifiers - * PATIENT BEING DISCHARGED WITH ANY OF THE FOLLOWING DIAGNOSIS: No
[2017-12-02] MEDS ORDERED: LEVOFLOXACIN 500 MG TABLET PO SCH (10:00)
== END 2017-12-01 15:29 | disposition home or self-care (01) | DRG 871 ==
LOC: ER 16:14 → EH 19:26 → 3S 21:27
PROVIDERS: ADMIT Internal Medicine; ATTEND Internal Medicine
PROC: 3E0F73Z Introduction of Anti-inflammatory into Respiratory Tract, Via Natural or Artificial Opening (ICD-10-PCS; principal; 2017-11-29)
DX: A41.9 Sepsis, unspecified organism (principal); J18.1 Lobar pneumonia, unspecified organism; J44.1 Chronic obstructive pulmonary disease with (acute) exacerbation; J44.0 Chronic obstructive pulmonary disease with (acute) lower respiratory infection; B96.3 Hemophilus influenzae [H. influenzae] as the cause of diseases classified elsewhere; I10 Essential (primary) hypertension; M19.90 Unspecified osteoarthritis, unspecified site; Z90.49 Acquired absence of other specified parts of digestive tract; Z90.710 Acquired absence of both cervix and uterus; Z87.891 Personal history of nicotine dependence; Z79.899 Other long term (current) drug therapy; Z88.0 Allergy status to penicillin
CPT/HCPCS: 36415; 71045; 71275; 74176; 80053; 81001; 82550; 82553; 82803; 82962; 83605; 83735; 83880; 84132; 84484; 85025; 85610; 87040; 87070; 87077; 87086; 87205; 93005; 93010; 94640; 96365; 99291; J1650; J1956; J2920; J3480; J3490; J7030; J7512; J7620; S0164

== ENCOUNTER → 2017-12-08 | Outpatient (CLI) | payer MEDICARE ==
[2017-12-08 12:55] LABS: ABSOLUTE EOSINOPHILS # (AUTO) 0.2 10^3/uL (0.0-0.6); ABSOLUTE LYMPHOCYTES (AUTO) 1.2 10^3/uL (0.5-4.7); ABSOLUTE MONOCYTES (AUTO) 0.6 10^3/uL (0.1-1.4); BASOPHILS % (AUTO) 0.5 % (0-2); EOSINOPHILS % (AUTO) 2.2 % (0-6); HEMATOCRIT 40.3 % (36.0-47.0); HEMOGLOBIN 13.4 g/dL (12.0-15.5); LYMPHOCYTES % (AUTO) 14.9 % (13-45); MEAN CORPUSCULAR HEMOGLOBIN 29.5 pg (27.0-33.4); MEAN CORPUSCULAR HGB CONC 33.2 g/dL (32.0-36.0); MEAN CORPUSCULAR VOLUME 89 fl (80-97); PLATELET COUNT 339 10^3/uL (150-450); RED BLOOD COUNT 4.54 10^6/uL (3.72-5.28); SEGMENTED NEUTROPHILS % (AUTO) 74.4 % (42-78); TOTAL CELLS COUNTED % (AUTO) 100 %
[2017-12-08 12:57] LABS: APPEARANCE,URINE CLEAR; BILIRUBIN,URINE NEGATIVE (NEGATIVE); COLOR,URINE YELLOW; GLUCOSE, URINE NEGATIVE (NEGATIVE); KETONES,URINE NEGATIVE (NEGATIVE); LEUKOCYTE ESTERASE,URINE NEGATIVE (NEGATIVE); NITRITE,URINE NEGATIVE (NEGATIVE); PROTEIN,URINE NEGATIVE (NEGATIVE); UROBILINOGEN,URINE NEGATIVE mg/dL (<2.0)
--- NOTE | 2017-12-08 13:06 | RADIOLOGY REPORT (SQ) ---
EXAM DESCRIPTION: CHEST PA/LATERAL COMPLETED DATE/TIME: 12/08/2017 11:49 am REASON FOR STUDY: ENCOUNTER FOR OTHER PREPROCEDURAL EXAMINATION COMPARISON: CT of the chest 11/28/2017 NUMBER OF VIEWS: Two view. TECHNIQUE: Frontal and lateral radiographic views of the chest acquired. LIMITATIONS: None. FINDINGS: LUNGS AND PLEURA: Few markings right lower lung zone that may represent residual change f rom the airspace disease noted on the earlier CT scan of the chest. Lungs otherwise clear. MEDIASTINUM AND HILAR STRUCTURES: No masses or contour abnormalities. HEART AND VASCULATURE: Heart normal size. No evidence for failure. BONY STRUCTURES: No acute findings. HARDWARE: None. OTHER: No other significant finding. IMPRESSION: Few markings right lower lung zone. See above discussion. TECHNICAL DOCUMENTATION: JOB ID: [id number] [employer]- All Rights Reserved Reading location - IP/workstation name: [email or web address]
[2017-12-08 13:23] LABS: ANION GAP 12 (5-19); BLOOD UREA NITROGEN 12 mg/dL (7-20); CALCIUM 9.1 mg/dL (8.4-10.2); CARBON DIOXIDE 26 mmol/L (22-30); CHLORIDE 105 mmol/L (98-107); GLUCOSE 86 mg/dL (75-110); POTASSIUM 4.8 mmol/L (3.6-5.0); SODIUM 142.6 mmol/L (137-145)
--- NOTE | 2017-12-08 13:36 | EKG REPORT ---
SEVERITY:- NORMAL ECG - SINUS RHYTHM : Confirmed by: Nawaf Castillo MD 08-Dec-2017 13:36:07
== END ==
LOC: OD 11:11
PROVIDERS: ATTEND Orthopaedic Surgery
DX: Z01.818 Encounter for other preprocedural examination (principal); I10 Essential (primary) hypertension
CPT/HCPCS: 36415; 71046; 80048; 81001; 85025; 93005; 93010

== ENCOUNTER 2017-12-21 09:20 | Inpatient (IN) | payer MEDICARE ==
[~2017-12-21 09:20] MED LIST: BUPIVACAINE INJ/PF LIPOSOME/PF 266 MG/20 ML SDV IJ PRN; BUPIVACAINE INJ/PF LIPOSOME/PF 266 MG/20 ML SDV ONE; CEFAZOLIN INJ 1 GM VIAL IV PRN; IBUPROFEN 800 MG/NS 250 ML IV PRN; RINGERS SOLUTION,LACTATED 1,000 ML IV PRN; THROMBIN (BOVINE) 5000 UNIT EPITAXIS KIT ONE; THROMBIN (BOVINE) TOPICAL 20000 UNIT VIAL ONE; VANCOMYCIN HCL 1,000 MG in DEXTROSE 5%-WATER 250 ML IV PRN
--- NOTE | 2017-12-21 09:20 | Physician Advisory Note ---
Physician Advisor ProgressNote .: Pursuant to the plan for [facility], I have reviewed the medical record for this patient. Physician Advisor Statement: Please consider documenting, if you agree: 1. "Mild pulmonary hypertension" (per ECHO 09/08/16) 2. "Radiologic findings pre-op of this knee include " (Choose ALL that apply): A. Subchondral cysts B. Subchondral sclerosis C. Periarticular osteophytes D. Joint space narrowing / endstage joint disease E. Joint subluxation F. AVN / osteonecrosis Surgical necessity: Nicely documented in H&P, nursing pre-op eval except need documentation of pre-op x-ray findings. Status: 77yo with PROMIS score of just 23, underlying COPD, mild pulmonary HTN , recent PNA requiring adm. Very limited function. Appropriate to expect need for at least 2 MNs in hospital post-op for recovery. Thanks! CK
[2017-12-21] MEDS ORDERED: CLINDAMYCIN 600 MG/D5W RTU 600 MG/50 ML RTUPB IV ONE (09:34)
[2017-12-21] MEDS: OXYCODONE HCL SR 10 MG TABLET PO PRN ×4 (09:40→15:53)
[2017-12-21] MEDS ORDERED: FENTANYL CITRATE INJ/PF 100 MCG/2 ML AMPUL ONE (10:12)
[2017-12-21] MEDS ORDERED: EPHEDRINE SULFATE INJ 50 MG/1 ML AMPULE ONE (10:12)
[2017-12-21] MEDS ORDERED: MIDAZOLAM 2 MG/2 ML INJ ONE (10:12)
[2017-12-21] MEDS ORDERED: TRANEXAMIC ACID INJ/PF 1,000 MG/10 ML SDV IV ONE ×3 (10:13→14:00)
[2017-12-21] MEDS ORDERED: PROPOFOL INJ 200 MG/20 ML VIAL IV ONE (10:13)
[2017-12-21] MEDS ORDERED: BUPIVACAINE HCL/DEX-WATER/PF 15 MG/2 ML AMPULE ONE (10:14)
[2017-12-21] MEDS: LANSOPRAZOLE 15 MG TAB.RAP.DR PO PRN ×4 (10:18→18:02)
[2017-12-21] MEDS ORDERED: PROMETHAZINE HCL INJ 25 MG/1 ML VIAL IV PRN ×2 (11:42)
[2017-12-21] MEDS ORDERED: MEPERIDINE HCL/PF INJ 25 MG/1 ML DISP.SYRIN IV PRN (11:42)
[2017-12-21] MEDS ORDERED: FENTANYL CITRATE INJ/PF 100 MCG/2 ML AMPUL IV PRN ×3 (11:42)
[2017-12-21] MEDS ORDERED: DIPHENHYDRAMINE HCL 50 MG/ML VIAL IV PRN ×2 (11:42→12:17)
[2017-12-21] MEDS ORDERED: OXYCODONE-ACETAMINOPHEN 5-325 MG TABLET PO PRN ×2 (11:42)
[2017-12-21] MEDS ORDERED: MORPHINE SULFATE 10 MG/ML INJ IV PRN ×3 (11:42→12:17)
--- NOTE | 2017-12-21 12:16 | Operative Report ---
Operative Report DATE OF SURGERY: 12/21/17 PREOPERATIVE DIAGNOSIS: Left knee arthritis OPERATION: Left knee arthroplasty SURGEON: FRANKLYN CANTRELL ANESTHESIA: Spinal TISSUE REMOVED OR ALTERED: Bone to pathology ESTIMATED BLOOD LOSS: 100 PROCEDURE: Implants used: Femur: Mary triathlon size 3 CR femur Tibia: 3 tibia Tibial liner: 9 mm CS insert Patella: 29 mm oval patella Procedure with the patient supine on the operating table the left the limb is prepped and draped in a sterile fashion. The limb was elevated for exsanguination and the tourniquet inflated to 280 torr. A standard midline median parapatellar approach the knee is taken. Access is gained to the femoral canal through the intercondylar notch. Intramedullary alignment instrumentation used to resect 10 mm of distal femur in 5 of valgus. Sizing guide indicated a size 3 femur. Appropriate cutting jig is then used to fashion anterior posterior and chamfer cuts. A trial reduction femurs performed and this is judged to be adequate. Attention was next turned to the tibia. Using an extra medullary alignment system 9 millimeters was resected off the lateral tibial plateau. This is sized to a size 3 tibia. A trial reduction was now performed with a 3 femur and a 3 tibia using a 9 millimeters spacer. It is full extension and central patellofemoral tracking. The articular surface the patella was next resected using an oscillating saw. All trial implants were removed. Polymethylmethacrylate is mixed and used to cement the above implants in place. On adequate curing the cement excess cement was removed the tourniquet was deflated hemostasis obtained the wound is then closed in layers using interrupted Vicryl followed by erick. A sterile compressive dressing was applied and the patient returned to recovery room in satisfactory condition.
[2017-12-21] MEDS ORDERED: MORPHINE SULFATE 10 MG/ML INJ IM PRN (12:17)
[2017-12-21] MEDS ORDERED: ONDANSETRON HCL INJ/PF 4 MG/2 ML SDV IV PRN (12:17)
[2017-12-21] MEDS ORDERED: MAG HYDROX/AL HYDROX/SIMETH SUSP 30 ML UDCUP PO PRN (12:17)
[2017-12-21] MEDS ORDERED: ZOLPIDEM TARTRATE 5 MG TABLET PO PRN (12:17)
[2017-12-21] MEDS ORDERED: RINGERS SOLUTION,LACTATED 1,000 ML IV PRN (12:17)
[2017-12-21] MEDS ORDERED: ACETAMINOPHEN 325 MG TABLET PO PRN (12:17)
--- NOTE | 2017-12-21 14:16 | RADIOLOGY REPORT (SQ) ---
EXAM DESCRIPTION: KNEE LEFT 2 VIEWS COMPLETED DATE/TIME: 12/21/2017 12:49 pm REASON FOR STUDY: Post OP -Long Cassette in PACU M17.12 UNILATERAL PRIMARY OSTEOARTHRITIS, LEFT KNE E COMPARISON: None. NUMBER OF VIEWS: Two view(s). TECHNIQUE: Digital radiographic images of the left knee post-procedure. LIMITATIONS: None. FINDINGS: BONES: No worrisome or unexpected findings post-procedure. DEVICE: Total knee arthroplasty. SOFT TISSUES: No worrisome findings. Expected postoperative soft tissue changes. IMPRESSION: SATISFACTORY POSTOPERATIVE LEFT KNEE. TECHNICAL DOCUMENTATION: JOB ID: [id number] [employer]- All Rights Reserved Reading location - IP/workstation name: [email or web address]
[2017-12-21] MEDS ORDERED: ONDANSETRON HCL INJ/PF 4 MG/2 ML SDV ONE (14:20)
[2017-12-21] MEDS ORDERED: DEXAMETHASONE SOD PHOSPHATE INJ 4 MG/1 ML VIAL ONE (14:20)
[2017-12-21] MEDS: OXYCODONE HCL IR 5 MG TABLET PO PRN (15:57)
[2017-12-21] MEDS: IBUPROFEN 800 MG in NORMAL SALINE 250 ML IV SCH (17:57)
[2017-12-21] MEDS ORDERED: (PENDING PHARMACY ID) (Lisinopril [Lisinopril] 40 MG) PO SCH (18:00)
[2017-12-21] MEDS: LISINOPRIL 10 MG TABLET PO SCH (18:01)
[2017-12-21] MEDS: SENNOSIDES/DOCUSATE 8.6-50 MG 1 EACH TABLET PO SCH (18:01)
[2017-12-21] MEDS: FUROSEMIDE 40 MG TABLET PO SCH (18:02)
[2017-12-21] MEDS: MORPHINE SULFATE 10 MG/ML INJ IV PRN (20:32)
[2017-12-21] MEDS: BUDESONIDE/FORMOTEROL 160-4.5 MCG 60 PUFF/6 GM MDI IH SCH (22:06)
[2017-12-21] MEDS: OXYCODONE HCL SR 10 MG TABLET PO SCH (22:06)
[2017-12-22] MEDS ORDERED: VANCOMYCIN HCL 1,000 MG in DEXTROSE 5%-WATER 250 ML IV ONE (00:17)
[2017-12-22] MEDS: ONDANSETRON 4 MG TAB.RAPDIS PO PRN ×2 (00:30→06:27)
[2017-12-22] MEDS: MORPHINE SULFATE 10 MG/ML INJ IV PRN (01:10)
[2017-12-22] MEDS: IBUPROFEN 800 MG in NORMAL SALINE 250 ML IV SCH ×3 (01:12→18:22)
[2017-12-22] MEDS ORDERED: LANSOPRAZOLE 15 MG TAB.RAP.DR PO SCH (06:00)
[2017-12-22] MEDS: OXYCODONE HCL IR 5 MG TABLET PO PRN (06:02)
[2017-12-22] MEDS: LISINOPRIL 10 MG TABLET PO SCH ×2 (06:02→18:23)
[2017-12-22] MEDS: LANSOPRAZOLE 30 MG TAB.RAP.DR PO SCH (06:02)
[2017-12-22 06:14] LABS: HEMATOCRIT 36.2 % (36.0-47.0); HEMOGLOBIN 12.2 g/dL (12.0-15.5); MEAN CORPUSCULAR HEMOGLOBIN 29.9 pg (27.0-33.4); MEAN CORPUSCULAR HGB CONC 33.7 g/dL (32.0-36.0); MEAN CORPUSCULAR VOLUME 89 fl (80-97); PLATELET COUNT 216 10^3/uL (150-450); RED BLOOD COUNT 4.07 10^6/uL (3.72-5.28); RED CELL DISTRIBUTION WIDTH 15.6 % (11.5-14.0); WHITE BLOOD COUNT 8.6 10^3/uL (4.0-10.5)
[2017-12-22 06:26] LABS: ANION GAP 11 (5-19); BLOOD UREA NITROGEN 11 mg/dL (7-20); CALCIUM 9.2 mg/dL (8.4-10.2); CARBON DIOXIDE 27 mmol/L (22-30); CHLORIDE 101 mmol/L (98-107); GLUCOSE 119 mg/dL (75-110); POTASSIUM 3.7 mmol/L (3.6-5.0); SODIUM 139.1 mmol/L (137-145)
--- NOTE | 2017-12-22 06:55 | PDOC PROGRESS REPORT ---
Subjective Progress Note for:: 12/22/17 Reason For Visit: LEFT KNEE ARTHRITIS 77-year-old white female postop day 1 from left knee arthroplasty. Patient with significant nausea this morning and limited progress with physical therapy yesterday. Physical Exam Vital Signs: Temp Pulse Resp BP Pulse Ox 36.4 C 85 18 140/65 H 94 12/22/17 00:23 12/22/17 00:23 12/22/17 00:23 12/22/17 00:23 12/22/17 00:23 Intake & Output 12/20/17 12/21/17 12/22/17 06:59 06:59 06:59 Intake Total 4200 Output Total 3050 Balance 1150 Weight 73.8 kg General appearance: PRESENT: mild distress Head exam: PRESENT: normocephalic Respiratory exam: PRESENT: unlabored Cardiovascular exam: PRESENT: RRR Pulses: PRESENT: +1 pedal pulses bilateral Vascular exam: PRESENT: normal capillary refill GI/Abdominal exam: PRESENT: soft Rectal exam: PRESENT: deferred Extremities exam: PRESENT: other - Left lower extremity dressing clean dry and intact. Minimal pedal edema. Distal neurovascular examination is intact. Neurological exam: PRESENT: alert, awake, oriented to person, oriented to place , oriented to time, oriented to situation. ABSENT: motor sensory deficit Psychiatric exam: PRESENT: appropriate affect, normal mood. ABSENT: homicidal ideation, suicidal ideation Skin exam: PRESENT: dry, intact, warm. ABSENT: cyanosis, rash Results Laboratory Results: 12/22/17 05:47 12/22/17 05:47 12/21/17 12/21/17 12/22/17 09:43 09:43 05:47 WBC 8.6 RBC 4.07 Hgb 12.2 Hct 36.2 MCV 89 MCH 29.9 MCHC 33.7 RDW 15.6 H Plt Count 216 Sodium Potassium 4.3 Chloride Carbon Dioxide Anion Gap BUN Creatinine Est GFR ( Amer) Est GFR (Non-Af Amer) Glucose Calcium Blood Type O POSITIVE Antibody Screen NEGATIVE 12/22/17 05:47 WBC RBC Hgb Hct MCV MCH MCHC RDW Plt Count Sodium 139.1 Potassium 3.7 Chloride 101 Carbon Dioxide 27 Anion Gap 11 BUN 11 Creatinine 0.68 Est GFR ( Amer) > 60 Est GFR (Non-Af Amer) > 60 Glucose 119 H Calcium 9.2 Blood Type Antibody Screen Impressions: Knee X-Ray 12/21/17 12:18 IMPRESSION: SATISFACTORY POSTOPERATIVE LEFT KNEE. Status: Imported from PACS Assessment & Plan - Diagnosis (1) Arthritis of left knee Is this a current diagnosis for this admission?: Yes Plan: Uneventful postoperative course status post left knee arthroplasty yesterday. Continued physical therapy for her with ambulation weightbearing as tolerated basis today. (2) Nausea & vomiting Is this a current diagnosis for this admission?: Yes Plan: Current treatment with Zofran seems effective - Time Time Spent with patient: 15-24 minutes Anticipated discharge: Home with Homehealth Within: within 24 hours
[2017-12-22] MEDS: OXYCODONE HCL SR 10 MG TABLET PO SCH ×2 (09:51→22:34)
[2017-12-22] MEDS: PRENATAL VITAMIN W DHA CAPSULE PO SCH (09:51)
[2017-12-22] MEDS: ASPIRIN 81 MG TABLET, ENT COATED PO SCH (09:53)
[2017-12-22] MEDS: FUROSEMIDE 40 MG TABLET PO SCH ×2 (09:53→18:23)
[2017-12-22] MEDS: BUDESONIDE/FORMOTEROL 160-4.5 MCG 60 PUFF/6 GM MDI IH SCH ×2 (09:54→22:37)
[2017-12-22] MEDS: SENNOSIDES/DOCUSATE 8.6-50 MG 1 EACH TABLET PO SCH ×2 (09:54→18:23)
[2017-12-22] MEDS ORDERED: (PENDING PHARMACY ID) (Umeclidinium Brm/Vilanterol Tr [Anoro Ellipta 62.5-25 Mcg Inh] 1 EA IH SCH (10:00)
[2017-12-22] MEDS ORDERED: (PENDING PHARMACY ID) (Esomeprazole Magnesium [Nexium 24hr] 20 MG) PO SCH (10:00)
[2017-12-22] MEDS ORDERED: PROMETHAZINE HCL INJ 25 MG/1 ML VIAL IV PRN (10:30)
[2017-12-23] MEDS: IBUPROFEN 800 MG in NORMAL SALINE 250 ML IV SCH ×2 (00:59→10:17)
[2017-12-23 04:48] LABS: HEMATOCRIT 35.6 % (36.0-47.0); MEAN CORPUSCULAR HEMOGLOBIN 29.5 pg (27.0-33.4); MEAN CORPUSCULAR HGB CONC 33.8 g/dL (32.0-36.0); MEAN CORPUSCULAR VOLUME 88 fl (80-97); PLATELET COUNT 247 10^3/uL (150-450); RED BLOOD COUNT 4.07 10^6/uL (3.72-5.28); RED CELL DISTRIBUTION WIDTH 15.7 % (11.5-14.0); WHITE BLOOD COUNT 8.4 10^3/uL (4.0-10.5)
[2017-12-23] MEDS: OXYCODONE HCL IR 5 MG TABLET PO PRN (05:42)
[2017-12-23] MEDS: LISINOPRIL 10 MG TABLET PO SCH ×2 (05:43→17:23)
[2017-12-23] MEDS: LANSOPRAZOLE 30 MG TAB.RAP.DR PO SCH (05:43)
--- NOTE | 2017-12-23 07:06 | PDOC DISCHARGE SUMMARY ---
General - Admit/Disc Date/PCP Admission Date/Primary Care Provider: 12/21/17 09:20 HIPOLITO MCKEON MD Discharge Date: 12/23/17 - Discharge Diagnosis (1) Arthritis of left knee Is this a current diagnosis for this admission?: Yes (2) Nausea & vomiting Is this a current diagnosis for this admission?: Yes - Additional Information Resuscitation Status: Full Code Discharge Diet: As Tolerated, Regular Discharge Activity: Balance Activity w/Rest, No Driving, No tub bath Home Medications: Budesonide/Formoterol Fumarate [Symbicort HFA 160-4.5 mcg Inhaler 6 gm] 2 puff IH Q12 02/05/17 Lisinopril 40 mg PO BID 02/05/17 Esomeprazole Magnesium [Nexium 24Hr] 20 mg PO DAILY #20 capsule. 11/21/17 Umeclidinium Brm/Vilanterol Tr [Anoro Ellipta 62.5-25 Mcg INH] 1 each IH DAILY 11/29/17 Furosemide [Lasix 40 mg Tablet] 40 mg PO BID 12/14/17 Aspirin [Ecotrin 81 mg EC Tablet] 81 mg PO DAILY tabec 12/23/17 Oxycodone HCl [Oxy-Ir 5 mg Tablet] 5 mg PO Q6HP PRN tablet 12/23/17 History of Present Illness History of Present Illness: ALEJANDRO MINOR is a 77 year old female Patient is a 77-year-old female with progressive bilateral knee pain and functional disability secondary osteoarthritis. Patient is admitted for elective left knee arthroplasty. Hospital Course Hospital Course: Patient is admitted through the operating room where she undergoes uncompensated left knee arthroplasty. She is returned to floor in satisfactory condition. Postoperative issues include nausea not relieved with Zofran. Phenergan was added and this seemed to resolve the patient's issues. She makes excellent progress with physical therapy in terms of range of motion and ambulation. Physical Exam Vital Signs: Temp Pulse Resp BP Pulse Ox 36.9 C 95 12 129/66 H 90 L 12/23/17 00:26 12/23/17 00:26 12/23/17 00:26 12/23/17 00:26 12/23/17 00:26 Intake & Output 12/22/17 12/23/17 12/24/17 06:59 06:59 06:59 Intake Total 5370 1994 Output Total 3050 Balance 2320 1993 Weight 73.8 kg General appearance: PRESENT: no acute distress Head exam: PRESENT: normocephalic Respiratory exam: PRESENT: unlabored Cardiovascular exam: PRESENT: RRR Pulses: PRESENT: +1 pedal pulses bilateral Vascular exam: PRESENT: normal capillary refill GI/Abdominal exam: PRESENT: soft Rectal exam: PRESENT: deferred Extremities exam: PRESENT: other - Left knee dressing clean dry and intact. Minimal pedal edema. Distal neurovascular examination is intact. Neurological exam: PRESENT: alert, awake, oriented to person, oriented to place , oriented to time, oriented to situation. ABSENT: motor sensory deficit Psychiatric exam: PRESENT: appropriate affect, normal mood. ABSENT: homicidal ideation, suicidal ideation Skin exam: PRESENT: dry, intact, warm. ABSENT: cyanosis, rash Results Laboratory Results: 12/23/17 03:44 12/22/17 05:47 12/23/17 03:44 WBC 8.4 RBC 4.07 Hgb 12.0 Hct 35.6 L MCV 88 MCH 29.5 MCHC 33.8 RDW 15.7 H Plt Count 247 Impressions: Knee X-Ray 12/21/17 12:18 IMPRESSION: SATISFACTORY POSTOPERATIVE LEFT KNEE. Status: Imported from PACS Qualifiers - * PATIENT BEING DISCHARGED WITH ANY OF THE FOLLOWING DIAGNOSIS: No VTE patient discharged on overlapping Therapy?: Yes Plan Discharge Plan: Patient to be discharged home with home health services and DME. Follow-up with Dr. Eleni Adamson Fowler for surgery in 2 weeks for staple removal. Time Spent: Less than 30 Minutes
[2017-12-23] MEDS: FUROSEMIDE 40 MG TABLET PO SCH (10:15)
[2017-12-23] MEDS: OXYCODONE HCL SR 10 MG TABLET PO SCH (10:16)
[2017-12-23] MEDS: SENNOSIDES/DOCUSATE 8.6-50 MG 1 EACH TABLET PO SCH ×2 (10:16→17:23)
[2017-12-23] MEDS: PRENATAL VITAMIN W DHA CAPSULE PO SCH (10:16)
[2017-12-23] MEDS: ASPIRIN 81 MG TABLET, ENT COATED PO SCH (10:16)
[2017-12-23] MEDS: BUDESONIDE/FORMOTEROL 160-4.5 MCG 60 PUFF/6 GM MDI IH SCH ×2 (10:17→21:28)
[2017-12-23 13:37] LABS: ARTERIAL BLOOD BASE EXCESS 2.7 mmol/L; ARTERIAL BLOOD H2CO3 1.34 mmol/L (1.05-1.35); ARTERIAL BLOOD HCO3 27.8 mmol/L (20-26); ARTERIAL BLOOD O2 SATURATION 94.2 % (94-98); ARTERIAL BLOOD PCO2 44.4 mmHg (35-45); ARTERIAL BLOOD PH 7.41 (7.35-7.45); ARTERIAL BLOOD PO2 69.9 mmHg (80-100); ARTERIAL BLOOD TOTAL CO2 29.1 mmol/L (21-25)
[2017-12-23 13:38] LABS: ARTERIAL BLOOD FIO2 32%
[2017-12-23 14:29] LABS: HEMATOCRIT 40.1 % (36.0-47.0); HEMOGLOBIN 13.5 g/dL (12.0-15.5); MEAN CORPUSCULAR HEMOGLOBIN 29.6 pg (27.0-33.4); MEAN CORPUSCULAR HGB CONC 33.7 g/dL (32.0-36.0); MEAN CORPUSCULAR VOLUME 88 fl (80-97); PLATELET COUNT 289 10^3/uL (150-450); RED BLOOD COUNT 4.57 10^6/uL (3.72-5.28); RED CELL DISTRIBUTION WIDTH 15.9 % (11.5-14.0); WHITE BLOOD COUNT 10.5 10^3/uL (4.0-10.5)
--- NOTE | 2017-12-23 14:39 | RADIOLOGY REPORT (SQ) ---
EXAM DESCRIPTION: CHEST SINGLE VIEW COMPLETED DATE/TIME: 12/23/2017 2:28 pm REASON FOR STUDY: TACHYCARDIA COMPARISON: 12/08/2017 EXAM PARAMETERS: NUMBER OF VIEWS: One view. TECHNIQUE: Single frontal radiographic view of the chest acquired. RADIATION DOSE: NA LIMITATIONS: None. FINDINGS: LUNGS AND PLEURA: Increased basilar atelectasis. No pneumothorax. MEDIASTINUM AND HILAR STRUCTURES: No masses. Contour normal. HEART AND VASCULAR STRUCTURES: Heart normal in size. Normal vasculature. BONES: No acute findings. HARDWARE: None in the chest. OTHER: No other significant finding. IMPRESSION: Increase to basilar atelectasis. TECHNICAL DOCUMENTATION: JOB ID: [id number] [employer]- All Rights Reserved Reading location - IP/workstation name: [email or web address]
[2017-12-23 14:45] LABS: ANION GAP 11 (5-19); BLOOD UREA NITROGEN 11 mg/dL (7-20); CARBON DIOXIDE 33 mmol/L (22-30); CHLORIDE 98 mmol/L (98-107); CREATINE KINASE 217 U/L (30-135); GLUCOSE 116 mg/dL (75-110); POTASSIUM 3.1 mmol/L (3.6-5.0); SODIUM 141.9 mmol/L (137-145)
[2017-12-23] MEDS: DILTIAZEM HCL/D5W 125 MG/125 ML RTUINJ IV PRN ×2 (14:57→23:01)
[2017-12-23] MEDS ORDERED: ALBUTEROL SULFATE 0.042% NEB (1.25 MG/3 ML) AMPUL NEB PRN (15:19)
--- NOTE | 2017-12-23 15:28 | PDOC CONSULTATION ---
Consultation Consult Date: 12/23/17 Attending physician:: FRANKLYN CANTRELL Consult reason:: Paroxysmal atrial fibrillation History of Present Illness Admission Date/PCP: 12/21/17 09:20 HIPOLITO MCKEON MD History of Present Illness: ALEJANDRO MINOR is a 77 year old female, she has a history of chronic obstructive pulmonary disease, she was admitted electively for left knee arthroplasty, this was done on December 21, 2017, she was discharged from orthopedic standpoint this morning, she developed paroxysmal atrial fibrillation with rapid ventricular response, heart rate was as high as 160, she was transferred from medical floor to [facility] for management. She had a history of paroxysmal atrial fibrillation, the last time she had an episode was back in August 2016 at that time a 2D echo was done today echo showed normal size of the left atrium the ejection fraction of the left ventricle was more than 65% there was moderate pulmonary hypertension by echo criteria. She has relatively high miki S2 score, 2 based on age and history of hypertension, she would need anticoagulant on a chronic basis. Past Medical History Cardiac Medical History: Reports: Atrial Fibrillation, Hypertension Pulmonary Medical History: Reports: Chronic Obstructive Pulmonary Disease (COPD) , Pneumonia - last one couple weeks ago GI Medical History: Reports: Gastroesophageal Reflux Disease Musculoskeltal Medical History: Reports: Arthritis - knee Past Surgical History Past Surgical History: Reports: Cholecystectomy, Hysterectomy, Orthopedic Surgery Social History Smoking Status: Former Smoker Frequency of Alcohol Use: None Hx Recreational Drug Use: No Drugs: None Hx Prescription Drug Abuse: No - Advance Directive Resuscitation Status: Full Code Family History Family History: Reviewed & Not Pertinent Parental Family History Reviewed: Yes Children Family History Reviewed: Yes Sibling(s) Family History Reviewed.: Yes Medication/Allergy Home Medications: Budesonide/Formoterol Fumarate [Symbicort HFA 160-4.5 mcg Inhaler 6 gm] 2 puff IH Q12 02/05/17 Lisinopril 40 mg PO BID 02/05/17 Esomeprazole Magnesium [Nexium 24Hr] 20 mg PO DAILY #20 capsule. 11/21/17 Umeclidinium Brm/Vilanterol Tr [Anoro Ellipta 62.5-25 Mcg INH] 1 each IH DAILY 11/29/17 Furosemide [Lasix 40 mg Tablet] 40 mg PO BID 12/14/17 Aspirin [Ecotrin 81 mg EC Tablet] 81 mg PO DAILY tabec 12/23/17 Oxycodone HCl [Oxy-Ir 5 mg Tablet] 5 mg PO Q6HP PRN tablet 12/23/17 Allergies/Adverse Reactions: Penicillins Allergy (Verified 12/21/17 10:33) Review of Systems Constitutional: ABSENT: chills, fever(s), headache(s), weight gain, weight loss Eyes: ABSENT: visual disturbances Ears: ABSENT: hearing changes Cardiovascular: PRESENT: palpitations. ABSENT: chest pain, dyspnea on exertion , edema, orthropnea Respiratory: PRESENT: cough, dyspnea. ABSENT: hemoptysis Gastrointestinal: ABSENT: abdominal pain, constipation, diarrhea, hematemesis, hematochezia, nausea, vomiting Genitourinary: ABSENT: dysuria, hematuria Musculoskeletal: ABSENT: joint swelling Integumentary: ABSENT: rash, wounds Neurological: ABSENT: abnormal gait, abnormal speech, confusion, dizziness, focal weakness, syncope Psychiatric: ABSENT: anxiety, depression, homidical ideation, suicidal ideation Endocrine: ABSENT: cold intolerance, heat intolerance, menstrual abnormalities, polydipsia, polyuria Hematologic/Lymphatic: ABSENT: easy bleeding, easy bruising, lymphadenopathy Physical Exam Vital Signs: Temp Pulse Resp BP Pulse Ox 98.9 F 71 14 94/54 L 94 12/23/17 13:46 12/23/17 13:46 12/23/17 13:46 12/23/17 13:46 12/23/17 13:46 Intake & Output 12/22/17 12/23/17 12/24/17 06:59 06:59 06:59 Intake Total 5370 1993 Output Total 3050 Balance 2320 1993 Weight 73.8 kg General appearance: PRESENT: no acute distress, well-developed, well-nourished Head exam: PRESENT: atraumatic, normocephalic Eye exam: PRESENT: conjunctiva pink, EOMI, PERRLA Ear exam: PRESENT: normal external ear exam Mouth exam: PRESENT: moist, tongue midline Neck exam: PRESENT: full ROM Respiratory exam: PRESENT: wheezes Cardiovascular exam: PRESENT: RRR, +S1, +S2 Pulses: PRESENT: normal dorsalis pedis pul, +2 pedal pulses bilateral Vascular exam: PRESENT: normal capillary refill GI/Abdominal exam: PRESENT: normal bowel sounds, soft Rectal exam: PRESENT: deferred Neurological exam: PRESENT: alert, awake, oriented to person, oriented to place , oriented to time, oriented to situation, CN II-XII grossly intact Psychiatric exam: PRESENT: appropriate affect, normal mood Skin exam: PRESENT: dry, intact, warm Results Laboratory Results: 12/23/17 14:03 12/23/17 14:03 12/23/17 12/23/17 12/23/17 03:44 13:20 14:03 WBC 8.4 10.5 RBC 4.07 4.57 Hgb 12.0 13.5 Hct 35.6 L 40.1 MCV 88 88 MCH 29.5 29.6 MCHC 33.8 33.7 RDW 15.7 H 15.9 H Plt Count 247 289 Carbonic Acid 1.34 HCO3/H2CO3 Ratio 20:1 ABG pH 7.41 ABG pCO2 44.4 ABG pO2 69.9 L ABG HCO3 27.8 H ABG O2 Saturation 94.2 ABG Base Excess 2.7 FiO2 32% Sodium Potassium Chloride Carbon Dioxide Anion Gap BUN Creatinine Est GFR ( Amer) Est GFR (Non-Af Amer) Glucose Calcium 12/23/17 14:03 WBC RBC Hgb Hct MCV MCH MCHC RDW Plt Count Carbonic Acid HCO3/H2CO3 Ratio ABG pH ABG pCO2 ABG pO2 ABG HCO3 ABG O2 Saturation ABG Base Excess FiO2 Sodium 141.9 Potassium 3.1 L Chloride 98 Carbon Dioxide 33 H Anion Gap 11 BUN 11 Creatinine 0.94 Est GFR ( Amer) > 60 Est GFR (Non-Af Amer) 58 L Glucose 116 H Calcium 9.0 12/23/17 14:03 Creatine Kinase 217 H Impressions: Knee X-Ray 12/21/17 12:18 IMPRESSION: SATISFACTORY POSTOPERATIVE LEFT KNEE. Chest X-Ray 12/23/17 00:00 IMPRESSION: Increase to basilar atelectasis. Assessment & Plan - Diagnosis (1) Paroxysmal atrial fibrillation with rapid ventricular response Is this a current diagnosis for this admission?: Yes Plan: She has paroxysmal atrial fibrillation with rapid irregular response, patient is transferred to [facility], she is started on IV Cardizem infusion, anticoagulant with Eliquis, IV fluid, run cardiac enzymes, 2D echo is ordered (2) COPD (chronic obstructive pulmonary disease) Qualifiers: COPD type: unspecified COPD Qualified Code(s): J44.9 - Chronic obstructive pulmonary disease, unspecified Is this a current diagnosis for this admission?: Yes
[2017-12-23 15:33] LABS: CREATINE KINASE MB 2.43 ng/mL (<4.55)
[2017-12-23] MEDS: NORMAL SALINE 1000 ML 1,000 ML IV PRN (15:37)
[2017-12-23 15:43] LABS: TROPONIN I < 0.012 ng/mL
[2017-12-23 15:47] LABS: ABSOLUTE LYMPHOCYTES# (MANUAL) 0.6 10^3/uL (0.5-4.7); ABSOLUTE MONOCYTES # (MANUAL) 0.5 10^3/uL (0.1-1.4); ABSOLUTE NEUTROPHILS# (MANUAL) 9.2 10^3/uL (1.7-8.2); BASOPHILS % (MANUAL) 0 % (0-2); EOSINOPHILS % (MANUAL) 1 % (0-6); LYMPHOCYTES % (MANUAL) 6 % (13-45); MONOCYTES % (MANUAL) 5 % (3-13); SEGMENTED NEUTROPHILS % (MAN) 88 % (42-78); TOTAL CELLS COUNTED 100
[2017-12-23 15:48] LABS: ANISOCYTOSIS SLIGHT; PLATELET COMMENT ADEQUATE; TOXIC GRANULATION SLIGHT
--- NOTE | 2017-12-23 17:14 | RADIOLOGY REPORT (SQ) ---
EXAM DESCRIPTION: CT CHEST WITHOUT COMPLETED DATE/TIME: 12/23/2017 5:01 pm REASON FOR STUDY: COPD/A-FIB M17.12 UNILATERAL PRIMARY OSTEOARTHRITIS, LEFT KNEE COMPARISON: 12/23/2017 TECHNIQUE: CT scan performed of the chest without intravenous contrast. Images reviewed with lung, soft tissue and bone windows. Reconstructed coronal and sagittal MPR images reviewed. All images st ored on PACS. All CT scanners at this facility use dose modulation, iterative reconstruction, and/or weight based d osing when appropriate to reduce radiation dose to as low as reasonably achievable (ALARA). [facility]: Dose Right [facility]: CareDose [facility]: Dose Right [facility]: Teradose 4D [facility]: [employer] RADIATION DOSE: CT Rad equipment meets quality standard of care and radiation dose reduction techniq ues were employed. CTDIvol: 12.2 mGy. DLP: 461 mGy-cm. mGy. LIMITATIONS: No technical limitations. FINDINGS: LUNGS AND PLEURA: Extensive parenchymal opacity at the right base with air bronchograms. No effusions. Left lung is clear. HILAR AND MEDIASTINAL STRUCTURES: No identified masses or abnormal nodes. No obvious aneurysm. HEART AND VASCULAR STRUCTURES: No aneurysm. No pericardial effusion. UPPER ABDOMEN: No significant findings. Limited exam. THYROID AND OTHER SOFT TISSUES: No masses. No adenopathy. BONES: No significant finding. HARDWARE: None in the chest. OTHER: No other significant findings. IMPRESSION: Right lower lobe pneumonia. TECHNICAL DOCUMENTATION: JOB ID: [id number] Quality ID # [id number]: Final reports with documentation of one or more dose reduction techniques (e.g., Au tomated exposure control, adjustment of the mA and/or kV according to patient size, use of iterative reconstruction technique) 2010 [employer]- All Rights Reserved Reading location - IP/workstation name: [email or web address]
[2017-12-23] MEDS: APIXABAN 5 MG TABLET PO SCH (17:22)
[2017-12-23] MEDS: AZTREONAM 1 GM in DEXTROSE 5%-WATER 50 ML IV SCH (18:38)
[2017-12-23] MEDS: POTASSI CL 20 MEQ/50 ML RIDER 20 MEQ/50 ML RTUPB IV SCH ×2 (20:00→23:04)
[2017-12-23] MEDS ORDERED: LEVOFLOXACIN 750 MG/D5W RTU 750 MG/150 ML RTUPB IV SCH (22:00)
[2017-12-23 22:45] LABS: CREATINE KINASE MB 4.08 ng/mL (<4.55)
[2017-12-23 22:47] LABS: TROPONIN I 0.165 ng/mL
[2017-12-24] MEDS: MORPHINE SULFATE 10 MG/ML INJ IV PRN ×3 (01:00→12:04)
[2017-12-24] MEDS ORDERED: POTASSI CL 20 MEQ/50 ML RIDER 20 MEQ/50 ML RTUPB IV ONE (01:04)
[2017-12-24] MEDS: POTASSI CL 20 MEQ/50 ML RIDER 20 MEQ/50 ML RTUPB IV SCH (01:10)
[2017-12-24] MEDS: AZTREONAM 1 GM in DEXTROSE 5%-WATER 50 ML IV SCH ×3 (02:55→17:20)
[2017-12-24] MEDS ORDERED: METOPROLOL SUCCINATE 50 MG TAB.SR.24H PO ONE (03:30)
[2017-12-24] MEDS: LANSOPRAZOLE 30 MG TAB.RAP.DR PO SCH (05:13)
[2017-12-24] MEDS: LISINOPRIL 10 MG TABLET PO SCH ×2 (05:14→17:22)
[2017-12-24] MEDS: NORMAL SALINE 1000 ML 1,000 ML IV PRN ×2 (06:21→16:00)
--- NOTE | 2017-12-24 06:42 | PDOC PROGRESS REPORT ---
Subjective Progress Note for:: 12/24/17 Reason For Visit: LEFT KNEE ARTHRITIS 77-year-old female status post left knee arthroplasty with a scheduled discharge yesterday which was canceled because of an acute onset tachycardia. Patient feels better this morning. Physical Exam Vital Signs: Temp Pulse Resp BP Pulse Ox 36.8 C 83 16 94/44 L 93 12/24/17 04:24 12/24/17 04:24 12/24/17 04:24 12/24/17 04:24 12/24/17 04:24 Intake & Output 12/22/17 12/23/17 12/24/17 06:59 06:59 06:59 Intake Total 5370 1993 240 Output Total 3050 Balance 2320 1993 240 Weight 73.8 kg 73.8 kg Physical Exam: Patient sitting up in bed. She is alert interactive and in good spirits. General appearance: PRESENT: no acute distress Head exam: PRESENT: normocephalic Respiratory exam: PRESENT: unlabored Cardiovascular exam: PRESENT: RRR Pulses: PRESENT: +1 pedal pulses bilateral Vascular exam: PRESENT: normal capillary refill GI/Abdominal exam: PRESENT: soft Rectal exam: PRESENT: deferred Extremities exam: PRESENT: other - Small old drainage on left knee dressing. Minimal pedal edema. Distal neurovascular examination is intact. Results Laboratory Results: 12/23/17 12/23/17 12/23/17 13:20 14:03 14:03 WBC 10.5 RBC 4.57 Hgb 13.5 Hct 40.1 MCV 88 MCH 29.6 MCHC 33.7 RDW 15.9 H Plt Count 289 Seg Neutrophils % Not Reportable Lymphocytes % Not Reportable Monocytes % Not Reportable Eosinophils % Not Reportable Basophils % Not Reportable Absolute Neutrophils Not Reportable Absolute Lymphocytes Not Reportable Absolute Monocytes Not Reportable Absolute Eosinophils Not Reportable Absolute Basophils Not Reportable Carbonic Acid 1.34 HCO3/H2CO3 Ratio 20:1 ABG pH 7.41 ABG pCO2 44.4 ABG pO2 69.9 L ABG HCO3 27.8 H ABG O2 Saturation 94.2 ABG Base Excess 2.7 FiO2 32% Sodium 141.9 Potassium 3.1 L Chloride 98 Carbon Dioxide 33 H Anion Gap 11 BUN 11 Creatinine 0.94 Est GFR ( Amer) > 60 Est GFR (Non-Af Amer) 58 L Glucose 116 H Calcium 9.0 12/23/17 12/23/17 12/23/17 14:03 14:03 22:04 Creatine Kinase 217 H 267 H CK-MB (CK-2) 2.43 Troponin I < 0.012 12/23/17 22:04 Creatine Kinase CK-MB (CK-2) 4.08 Troponin I 0.165 Impressions: Knee X-Ray 12/21/17 12:18 IMPRESSION: SATISFACTORY POSTOPERATIVE LEFT KNEE. Chest CT 12/23/17 00:00 IMPRESSION: Right lower lobe pneumonia. Chest X-Ray 12/23/17 00:00 IMPRESSION: Increase to basilar atelectasis. Status: Imported from PACS Assessment & Plan - Diagnosis (1) Arthritis of left knee Is this a current diagnosis for this admission?: Yes Plan: Resume physical therapy when medical condition permits (2) Nausea & vomiting Is this a current diagnosis for this admission?: Yes - Time Time Spent with patient: 15-24 minutes Anticipated discharge: Home with Homehealth Within: Other
[2017-12-24 06:50] LABS: HEMATOCRIT 31.2 % (36.0-47.0); MEAN CORPUSCULAR HEMOGLOBIN 29.6 pg (27.0-33.4); MEAN CORPUSCULAR VOLUME 87 fl (80-97); PLATELET COUNT 256 10^3/uL (150-450); RED BLOOD COUNT 3.58 10^6/uL (3.72-5.28); RED CELL DISTRIBUTION WIDTH 15.9 % (11.5-14.0); WHITE BLOOD COUNT 11.5 10^3/uL (4.0-10.5)
[2017-12-24 06:51] LABS: HEMOGLOBIN 10.6 g/dL (12.0-15.5)
[2017-12-24 07:02] LABS: ALANINE AMINOTRANSFERASE 32 U/L (9-52); ALBUMIN 2.7 g/dL (3.5-5.0); ALKALINE PHOSPHATASE 73 U/L (38-126); ANION GAP 7 (5-19); ASPARTATE AMINO TRANSFERASE 48 U/L (14-36); BILIRUBIN,DIRECT 0.4 mg/dL (0.0-0.4); BILIRUBIN,TOTAL 1.3 mg/dL (0.2-1.3); BLOOD UREA NITROGEN 14 mg/dL (7-20); CALCIUM 8.3 mg/dL (8.4-10.2); CARBON DIOXIDE 29 mmol/L (22-30); CHLORIDE 102 mmol/L (98-107); CREATINE KINASE 1039 U/L (30-135); GLUCOSE 106 mg/dL (75-110); POTASSIUM 3.5 mmol/L (3.6-5.0); SODIUM 138.1 mmol/L (137-145)
[2017-12-24 07:15] LABS: CREATINE KINASE MB 12.6 ng/mL (<4.55); TROPONIN I 0.098 ng/mL
--- NOTE | 2017-12-24 07:47 | EKG REPORT ---
SEVERITY:- ABNORMAL ECG - ATRIAL FIBRILLATION WITH RAPID V-RATE PROBABLE POSTERIOR INFARCT ST DEPRESSION, PROBABLY RATE RELATED : Confirmed by: Mayda Urrutia MD 24-Dec-2017 07:46:03
[2017-12-24] MEDS ORDERED: ONDANSETRON 4 MG TAB.RAPDIS PO PRN (09:30)
[2017-12-24] MEDS: APIXABAN 5 MG TABLET PO SCH ×2 (10:19→17:22)
[2017-12-24] MEDS: SENNOSIDES/DOCUSATE 8.6-50 MG 1 EACH TABLET PO SCH ×2 (10:19→17:21)
[2017-12-24] MEDS: METOPROLOL SUCCINATE 50 MG TAB.SR.24H PO SCH (10:19)
[2017-12-24] MEDS: BUDESONIDE/FORMOTEROL 160-4.5 MCG 60 PUFF/6 GM MDI IH SCH ×2 (10:20→21:10)
[2017-12-24] MEDS: PRENATAL VITAMIN W DHA CAPSULE PO SCH (10:20)
[2017-12-24] MEDS: OXYCODONE HCL IR 5 MG TABLET PO PRN (17:25)
--- NOTE | 2017-12-24 19:40 | XCELERA REPORT ---
[address] [address] Transthoracic Echocardiogram Report Name: ALEJANDRO MINOR Age: 77 yrs Gender: Female : 1940 Patient Status: Inpatient Patient Location: [address] [place] [address] Study Date: 12/24/2017 03:39 PM Height: 59 in Weight: 162 lb BSA: 1.7 m2 Procedure: A two-dimensional transthoracic echocardiogram with color flow and Doppler was performed. The study was technically difficult with many images being suboptimal in quality. Reason For Study: PAROXYSMAL ATRIAL FIBRILLATION History: PAROXYSMAL ATRIAL FIBRILLATION. Ordering Physician: HIPOLITO MCKEON Performed By: Lyudmila Yost Interpretation Summary The left ventricle is normal in size. There is normal left ventricular wall thickness. LV EF is > than 65% The left atrial size is normal. There is no evidence of mitral valve prolapse. There is no mitral valve stenosis. There is a trace amount of mitral regurgitation There is no aortic valvular vegetation. There is no aortic valve stenosis There is no LVOT obstruction. There is a trace amount of aortic regurgitation There is no tricuspid stenosis. There is a mild amount of tricuspid regurgitation There is mild pulmonary hypertension by echo RVSP is 41 to 46 mm of Hg , with RA mean of 5 to 10. The inferior vena cava appeared normal and decreased > 50% with respiration (RAP 5-10 mmHg) There is no pericardial effusion. MMode/2D Measurements & Calculations RVDd: 2.7 cm LVIDd: 4.3 cm FS: 32.0 % Ao root diam: 2.2 cm IVSd: 0.98 cm LVIDs: 2.9 cm EDV(Teich): 83.2 ml LVPWd: 1.00 cm ESV(Teich): 32.9 ml Ao root area: 3.8 cm2 EF(Teich): 60.4 % LA dimension: 2.7 cm Doppler Measurements & Calculations MV E max shelly: MV P1/2t max shelly: Ao V2 max: LV V1 max P.7 cm/sec 103.2 cm/sec 176.5 cm/sec 5.2 mmHg MV A max shelly: MV P1/2t: 63.4 msec Ao max PG: LV V1 max: 90.8 cm/sec 12.5 mmHg 114.0 cm/sec MV E/A: 1.1 MVA(P1/2t): 3.5 cm2 MV dec slope: 476.6 cm/sec2 MV dec time: 0.20 sec PA V2 max: TR max shelly: 74.0 cm/sec 297.3 cm/sec PA max PG: TR max P.3 mmHg 2.2 mmHg Left Ventricle The left ventricle is normal in size. There is normal left ventricular wall thickness. LV EF is > than 65%. Right Ventricle The right ventricle is not well visualized secondary to technical limitations. Atria The right atrium is normal. The left atrial size is normal. The interatrial septum is intact with no evidence for an atrial septal defect. Mitral Valve There is no evidence of mitral valve prolapse. There is no vegetation seen on the mitral valve. There is no mitral valve stenosis. There is a trace amount of mitral regurgitation. Aortic Valve There is no aortic valvular vegetation. There is no aortic valve stenosis. There is no LVOT obstruction. There is a trace amount of aortic regurgitation. Tricuspid Valve There is no tricuspid stenosis. There is a mild amount of tricuspid regurgitation. There is mild pulmonary hypertension by echo. RVSP is 41 to 46 mm of Hg , with RA mean of 5 to 10. Great Vessels The aortic root is not well visualized but is probably normal size. The inferior vena cava appeared normal and decreased > 50% with respiration (RAP 5-10 mmHg). Effusions There is no pericardial effusion. : HIPOLITO MCKEON > Mayda Urrutia
--- NOTE | 2017-12-24 20:29 | PDOC PROGRESS REPORT ---
Subjective Progress Note for:: 12/24/17 Subjective:: Patient was seen by the bedside, yesterday CT chest was done, showed right lung pneumonia. She said she feels better today, she presently cardioverted to sinus rhythm Reason For Visit: LEFT KNEE ARTHRITIS Physical Exam Vital Signs: Temp Pulse Resp BP Pulse Ox 99.9 F 78 16 108/46 L 93 12/24/17 19:19 12/24/17 19:19 12/24/17 19:19 12/24/17 19:19 12/24/17 19:19 Intake & Output 12/23/17 12/24/17 12/25/17 06:59 06:59 06:59 Intake Total 1993 2403 970 Output Total 100 Balance 1993 2403 870 Weight 73.8 kg General appearance: PRESENT: no acute distress Eye exam: PRESENT: PERRLA Respiratory exam: PRESENT: clear to auscultation shital Cardiovascular exam: PRESENT: +S1, +S2 GI/Abdominal exam: PRESENT: soft Neurological exam: PRESENT: alert, CN II-XII grossly intact Results Laboratory Results: 12/24/17 06:27 12/24/17 06:27 12/24/17 12/24/17 06:27 06:27 WBC 11.5 H RBC 3.58 L Hgb 10.6 L D Hct 31.2 L MCV 87 MCH 29.6 MCHC 34.0 RDW 15.9 H Plt Count 256 Sodium 138.1 Potassium 3.5 L Chloride 102 Carbon Dioxide 29 Anion Gap 7 BUN 14 Creatinine 0.69 Est GFR ( Amer) > 60 Est GFR (Non-Af Amer) > 60 Glucose 106 Calcium 8.3 L Total Bilirubin 1.3 AST 48 H ALT 32 Alkaline Phosphatase 73 Total Protein 5.0 L Albumin 2.7 L 12/23/17 12/23/17 12/23/17 14:03 14:03 22:04 Creatine Kinase 217 H 267 H CK-MB (CK-2) 2.43 Troponin I < 0.012 12/23/17 12/24/17 12/24/17 22:04 06:27 06:27 Creatine Kinase 1039 H CK-MB (CK-2) 4.08 12.60 H Troponin I 0.165 0.098 Impressions: Knee X-Ray 12/21/17 12:18 IMPRESSION: SATISFACTORY POSTOPERATIVE LEFT KNEE. Chest CT 12/23/17 00:00 IMPRESSION: Right lower lobe pneumonia. Chest X-Ray 12/23/17 00:00 IMPRESSION: Increase to basilar atelectasis. Assessment & Plan - Diagnosis (1) Paroxysmal atrial fibrillation with rapid ventricular response Is this a current diagnosis for this admission?: Yes (2) COPD (chronic obstructive pulmonary disease) Qualifiers: COPD type: unspecified COPD Qualified Code(s): J44.9 - Chronic obstructive pulmonary disease, unspecified Is this a current diagnosis for this admission?: Yes (3) Pneumonia Qualifiers: Pneumonia type: due to unspecified organism Laterality: right Lung location: unspecified part of lung Qualified Code(s): J18.9 - Pneumonia, unspecified organism Is this a current diagnosis for this admission?: Yes - Plan Summary Plan Summary: Continue IV antibiotic, reduce IV fluid ,start beta-joel
[2017-12-25] MEDS: AZTREONAM 1 GM in DEXTROSE 5%-WATER 50 ML IV SCH ×3 (01:35→17:22)
[2017-12-25] MEDS: OXYCODONE HCL IR 5 MG TABLET PO PRN ×3 (02:48→19:52)
[2017-12-25] MEDS: LISINOPRIL 10 MG TABLET PO SCH ×2 (05:17→17:21)
[2017-12-25] MEDS: LANSOPRAZOLE 30 MG TAB.RAP.DR PO SCH (05:17)
[2017-12-25] MEDS: SENNOSIDES/DOCUSATE 8.6-50 MG 1 EACH TABLET PO SCH ×2 (09:18→17:21)
[2017-12-25] MEDS: METOPROLOL SUCCINATE 50 MG TAB.SR.24H PO SCH (09:18)
[2017-12-25] MEDS: PRENATAL VITAMIN W DHA CAPSULE PO SCH (09:18)
[2017-12-25] MEDS: BUDESONIDE/FORMOTEROL 160-4.5 MCG 60 PUFF/6 GM MDI IH SCH ×2 (09:19→20:54)
[2017-12-25] MEDS: NORMAL SALINE 1000 ML 1,000 ML IV PRN (09:19)
[2017-12-25] MEDS: APIXABAN 5 MG TABLET PO SCH ×2 (09:19→17:21)
[2017-12-25 11:11] LABS: ABSOLUTE BASOPHILS # (AUTO) 0.1 10^3/uL (0.0-0.2); ABSOLUTE EOSINOPHILS # (AUTO) 0.1 10^3/uL (0.0-0.6); ABSOLUTE LYMPHOCYTES (AUTO) 0.7 10^3/uL (0.5-4.7); ABSOLUTE MONOCYTES (AUTO) 0.7 10^3/uL (0.1-1.4); ABSOLUTE NEUT (AUTO) 5.2 10^3/uL (1.7-8.2); BASOPHILS % (AUTO) 0.8 % (0-2); EOSINOPHILS % (AUTO) 1.1 % (0-6); HEMATOCRIT 30.1 % (36.0-47.0); HEMOGLOBIN 10.2 g/dL (12.0-15.5); MEAN CORPUSCULAR HEMOGLOBIN 29.6 pg (27.0-33.4); MEAN CORPUSCULAR HGB CONC 33.9 g/dL (32.0-36.0); MEAN CORPUSCULAR VOLUME 88 fl (80-97); PLATELET COUNT 305 10^3/uL (150-450); RED BLOOD COUNT 3.43 10^6/uL (3.72-5.28); RED CELL DISTRIBUTION WIDTH 15.7 % (11.5-14.0); SEGMENTED NEUTROPHILS % (AUTO) 77.1 % (42-78); TOTAL CELLS COUNTED % (AUTO) 100 %; WHITE BLOOD COUNT 6.7 10^3/uL (4.0-10.5)
[2017-12-25 11:41] LABS: ALANINE AMINOTRANSFERASE 32 U/L (9-52); ALBUMIN 2.6 g/dL (3.5-5.0); ALKALINE PHOSPHATASE 88 U/L (38-126); ANION GAP 7 (5-19); ASPARTATE AMINO TRANSFERASE 43 U/L (14-36); BILIRUBIN,DIRECT 0.5 mg/dL (0.0-0.4); BLOOD UREA NITROGEN 15 mg/dL (7-20); CALCIUM 8.1 mg/dL (8.4-10.2); CARBON DIOXIDE 28 mmol/L (22-30); CHLORIDE 102 mmol/L (98-107); GLUCOSE 116 mg/dL (75-110); POTASSIUM 3.3 mmol/L (3.6-5.0); SODIUM 136.9 mmol/L (137-145); TOTAL PROTEIN 4.9 g/dL (6.3-8.2)
--- NOTE | 2017-12-25 20:46 | PDOC PROGRESS REPORT ---
Subjective Progress Note for:: 12/25/17 Subjective:: Patient was seen by the bedside, she came initially, originally for knee arthroplasty, complicated with pneumonia and atrial fibrillation with RVR, on IV antibiotic improving Reason For Visit: LEFT KNEE ARTHRITIS Physical Exam Vital Signs: Temp Pulse Resp BP Pulse Ox 98.8 F 86 16 126/58 H 91 L 12/25/17 15:36 12/25/17 19:20 12/25/17 15:36 12/25/17 19:20 12/25/17 19:20 Intake & Output 12/24/17 12/25/17 12/26/17 06:59 06:59 06:59 Intake Total 2403 1947 1457 Output Total 101 Balance 2403 1846 1457 Weight 73.8 kg 71.8 kg General appearance: PRESENT: mild distress Eye exam: PRESENT: PERRLA Respiratory exam: PRESENT: rhonchi Cardiovascular exam: PRESENT: +S1, +S2 GI/Abdominal exam: PRESENT: soft Neurological exam: PRESENT: alert Results Laboratory Results: 12/25/17 10:56 12/25/17 10:56 12/25/17 12/25/17 12/25/17 10:56 10:56 15:50 WBC 6.7 RBC 3.43 L Hgb 10.2 L Hct 30.1 L MCV 88 MCH 29.6 MCHC 33.9 RDW 15.7 H Plt Count 305 Seg Neutrophils % 77.1 Lymphocytes % 10.0 L Monocytes % 11.0 Eosinophils % 1.1 Basophils % 0.8 Absolute Neutrophils 5.2 Absolute Lymphocytes 0.7 Absolute Monocytes 0.7 Absolute Eosinophils 0.1 Absolute Basophils 0.1 Sodium 136.9 L Potassium 3.3 L Chloride 102 Carbon Dioxide 28 Anion Gap 7 BUN 15 Creatinine 0.59 Est GFR ( Amer) > 60 Est GFR (Non-Af Amer) > 60 Glucose 116 H Calcium 8.1 L Magnesium 2.2 Total Bilirubin 1.0 AST 43 H ALT 32 Alkaline Phosphatase 88 Total Protein 4.9 L Albumin 2.6 L 12/23/17 12/23/17 12/23/17 14:03 14:03 22:04 Creatine Kinase 217 H 267 H CK-MB (CK-2) 2.43 Troponin I < 0.012 12/23/17 12/24/17 12/24/17 22:04 06:27 06:27 Creatine Kinase 1039 H CK-MB (CK-2) 4.08 12.60 H Troponin I 0.165 0.098 Impressions: Knee X-Ray 12/21/17 12:18 IMPRESSION: SATISFACTORY POSTOPERATIVE LEFT KNEE. Chest CT 12/23/17 00:00 IMPRESSION: Right lower lobe pneumonia. Chest X-Ray 12/23/17 00:00 IMPRESSION: Increase to basilar atelectasis. Assessment & Plan - Diagnosis (1) Paroxysmal atrial fibrillation with rapid ventricular response Is this a current diagnosis for this admission?: Yes Plan: Continue anticoagulant (2) COPD (chronic obstructive pulmonary disease) Qualifiers: COPD type: unspecified COPD Qualified Code(s): J44.9 - Chronic obstructive pulmonary disease, unspecified Is this a current diagnosis for this admission?: Yes (3) Pneumonia Qualifiers: Pneumonia type: due to unspecified organism Laterality: right Lung location: unspecified part of lung Qualified Code(s): J18.9 - Pneumonia, unspecified organism Is this a current diagnosis for this admission?: Yes Plan: She will continue IV antibiotic,
[2017-12-25] MEDS ORDERED: POTASSIUM CHLORIDE 10 MEQ CAPSULE.ER PO ONE (21:00)
[2017-12-25] MEDS ORDERED: LEVOFLOXACIN 750 MG/D5W RTU 750 MG/150 ML RTUPB IV SCH (22:00)
[2017-12-25] MEDS: MORPHINE SULFATE 10 MG/ML INJ IV PRN (23:09)
[2017-12-26] MEDS: AZTREONAM 1 GM in DEXTROSE 5%-WATER 50 ML IV SCH ×2 (01:40→10:10)
[2017-12-26] MEDS: OXYCODONE HCL IR 5 MG TABLET PO PRN ×2 (05:28→14:38)
[2017-12-26] MEDS: LISINOPRIL 10 MG TABLET PO SCH (05:29)
[2017-12-26] MEDS: LANSOPRAZOLE 30 MG TAB.RAP.DR PO SCH (05:29)
[2017-12-26] MEDS ORDERED: POTASSIUM CHLORIDE 10 MEQ CAPSULE.ER PO SCH (10:00)
[2017-12-26] MEDS: APIXABAN 5 MG TABLET PO SCH (10:07)
[2017-12-26] MEDS: METOPROLOL SUCCINATE 50 MG TAB.SR.24H PO SCH (10:07)
[2017-12-26] MEDS: SENNOSIDES/DOCUSATE 8.6-50 MG 1 EACH TABLET PO SCH (10:07)
[2017-12-26] MEDS: BUDESONIDE/FORMOTEROL 160-4.5 MCG 60 PUFF/6 GM MDI IH SCH (10:07)
[2017-12-26] MEDS: PRENATAL VITAMIN W DHA CAPSULE PO SCH (10:07)
--- NOTE | 2017-12-26 14:12 | PDOC DISCHARGE SUMMARY ---
General - Admit/Disc Date/PCP Admission Date/Primary Care Provider: 12/21/17 09:20 HIPOLITO MCKEON MD Discharge Date: 12/26/17 - Discharge Diagnosis (1) Paroxysmal atrial fibrillation with rapid ventricular response Is this a current diagnosis for this admission?: Yes (2) COPD (chronic obstructive pulmonary disease) Is this a current diagnosis for this admission?: Yes (3) Pneumonia Is this a current diagnosis for this admission?: Yes (4) Arthritis of right knee Is this a current diagnosis for this admission?: Yes (5) Presence of right artificial knee joint Is this a current diagnosis for this admission?: Yes (6) Arthritis of left knee Is this a current diagnosis for this admission?: Yes - Additional Information Resuscitation Status: Full Code Discharge Diet: As Tolerated, Regular Discharge Activity: Balance Activity w/Rest, No Driving, No tub bath Prescriptions: Apixaban [Eliquis 5 mg Tablet] 5 mg PO BID #60 tablet Levofloxacin [Levaquin 750 mg Tablet] 750 mg PO DAILY #10 tab Metoprolol Succinate [Toprol Xl 50 mg Tab.sr] 100 mg PO DAILY #90 tab.sr.24h Home Medications: Budesonide/Formoterol Fumarate [Symbicort HFA 160-4.5 mcg Inhaler 6 gm] 2 puff IH Q12 02/05/17 Lisinopril 40 mg PO BID 02/05/17 Esomeprazole Magnesium [Nexium 24Hr] 20 mg PO DAILY #20 capsule. 11/21/17 Umeclidinium Brm/Vilanterol Tr [Anoro Ellipta 62.5-25 Mcg INH] 1 each IH DAILY 11/29/17 Oxycodone HCl [Oxy-Ir 5 mg Tablet] 5 mg PO Q6HP PRN tablet 12/23/17 Apixaban [Eliquis 5 mg Tablet] 5 mg PO BID #60 tablet 12/26/17 Levofloxacin [Levaquin 750 mg Tablet] 750 mg PO DAILY #10 tab 12/26/17 Metoprolol Succinate [Toprol Xl 50 mg Tab.sr] 100 mg PO DAILY #90 tab.sr.24h History of Present Illness History of Present Illness: ALEJANDRO MINOR is a 77 year old female, she has a history of chronic obstructive pulmonary disease, she was admitted electively for left knee arthroplasty, this was done on December 21, 2017, she was discharged from orthopedic standpoint this morning, she developed paroxysmal atrial fibrillation with rapid ventricular response, heart rate was as high as 160, she was transferred from medical floor to [facility] for management. She had a history of paroxysmal atrial fibrillation, the last time she had an episode was back in August 2016 at that time a 2D echo was done today echo showed normal size of the left atrium the ejection fraction of the left ventricle was more than 65% there was moderate pulmonary hypertension by echo criteria. She has relatively high miki S2 score, 2 based on age and history of hypertension, she would need anticoagulant on a chronic basis. Hospital Course Hospital Course: Patient was admitted for elective arthroplasty of the right knee, on the day of discharge from orthopedic standpoint she developed acute paroxysmal atrial fibrillation with rapid ventricular response, she was transferred from the surgical floor to intermediate care unit. She was started on IV Cardizem infusion CT chest was done that confirmed right lung pneumonia, she was treated with IV antibiotic including Levaquin and aztreonam.. She required IV Cardizem infusion for rate control because of high miki S2 score she also was started on Eliquis anticoagulant 5 mg p.o. 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 Patient is much more improved, she is stable she is normal wheezing she be discharged home today to continue antibiotic Levaquin for a few more days she will continue outpatient physical therapy, she status post arthroplasty of the right knee she will see orthopedic outpatient, Dr. Knowles. Physical Exam Vital Signs: Temp Pulse Resp BP Pulse Ox 98.3 F 82 16 149/71 H 98 12/26/17 11:30 12/26/17 11:30 12/26/17 11:30 12/26/17 11:30 12/26/17 11:30 Intake & Output 12/25/17 12/26/17 12/27/17 06:59 06:59 06:59 Intake Total 1947 2307 Output Total 101 Balance 1846 2307 Weight 71.8 kg 72.3 kg General appearance: PRESENT: no acute distress, well-developed, well-nourished Head exam: PRESENT: atraumatic, normocephalic Eye exam: PRESENT: conjunctiva pink, EOMI, PERRLA Ear exam: PRESENT: normal external ear exam Mouth exam: PRESENT: moist, tongue midline Neck exam: PRESENT: full ROM Respiratory exam: PRESENT: clear to auscultation shital Cardiovascular exam: PRESENT: RRR, +S1, +S2 Pulses: PRESENT: normal dorsalis pedis pul, +2 pedal pulses bilateral Vascular exam: PRESENT: normal capillary refill GI/Abdominal exam: PRESENT: normal bowel sounds, soft Rectal exam: PRESENT: deferred Neurological exam: PRESENT: alert, awake, oriented to person, oriented to place , oriented to time, oriented to situation, CN II-XII grossly intact Psychiatric exam: PRESENT: appropriate affect, normal mood Skin exam: PRESENT: dry, intact, warm Results Laboratory Results: 12/25/17 10:56 12/25/17 15:50 Magnesium 2.2 12/23/17 12/23/17 12/23/17 14:03 14:03 22:04 Creatine Kinase 217 H 267 H CK-MB (CK-2) 2.43 Troponin I < 0.012 12/23/17 12/24/17 12/24/17 22:04 06:27 06:27 Creatine Kinase 1039 H CK-MB (CK-2) 4.08 12.60 H Troponin I 0.165 0.098 Impressions: Knee X-Ray 12/21/17 12:18 IMPRESSION: SATISFACTORY POSTOPERATIVE LEFT KNEE. Chest CT 12/23/17 00:00 IMPRESSION: Right lower lobe pneumonia. Chest X-Ray 12/23/17 00:00 IMPRESSION: Increase to basilar atelectasis. Qualifiers - * PATIENT BEING DISCHARGED WITH ANY OF THE FOLLOWING DIAGNOSIS: No
[2017-12-26 14:23] LABS: ANION GAP 11 (5-19); BLOOD UREA NITROGEN 10 mg/dL (7-20); CALCIUM 8.3 mg/dL (8.4-10.2); CARBON DIOXIDE 26 mmol/L (22-30); CHLORIDE 102 mmol/L (98-107); GLUCOSE 138 mg/dL (75-110); POTASSIUM 3.7 mmol/L (3.6-5.0)
[2017-12-26 14:37] VITALS: BP 140/65
== END 2017-12-26 15:25 | disposition home health service (06) | DRG 469 ==
LOC: INOR 09:20 → 4S 14:15 → 3S 12-23 14:51
PROVIDERS: ADMIT Internal Medicine; ATTEND Internal Medicine
PROC: 0SRD0J9 Replacement of Left Knee Joint with Synthetic Substitute, Cemented, Open Approach (ICD-10-PCS; principal; 2017-12-21 11:15)
DX: M17.12 Unilateral primary osteoarthritis, left knee (principal); J18.9 Pneumonia, unspecified organism; J44.0 Chronic obstructive pulmonary disease with (acute) lower respiratory infection; I48.0 Paroxysmal atrial fibrillation; I27.20 Pulmonary hypertension, unspecified; K21.9 Gastro-esophageal reflux disease without esophagitis; I10 Essential (primary) hypertension; Z96.651 Presence of right artificial knee joint; K21.0 Gastro-esophageal reflux disease with esophagitis; R00.0 Tachycardia, unspecified; Z79.82 Long term (current) use of aspirin; Z79.899 Other long term (current) drug therapy; Z90.49 Acquired absence of other specified parts of digestive tract; Z90.710 Acquired absence of both cervix and uterus; Z87.891 Personal history of nicotine dependence; Z88.0 Allergy status to penicillin; Z82.49 Family history of ischemic heart disease and other diseases of the circulatory system
CPT/HCPCS: 01402; 36415; 36600; 71045; 71250; 80048; 80053; 82550; 82553; 82803; 82962; 83735; 84132; 84484; 85025; 85027; 86850; 86900; 86901; 88304; 88311; 93005; 93010; 93306; 94799; C9290; G8978-GP; G8979-GP; G8987-GO; G8988-GO; J0690; J1100; J1741; J1956; J2250; J2270; J2405; J2550; J2704; J3010; J3370; J3480; J3490; J7030; J7050; J7060; J7120; S0119

== ENCOUNTER → 2019-01-11 | Outpatient (CLI) | payer MEDICARE ==
[2019-01-11 16:46] LABS: ABSOLUTE BASOPHILS # (AUTO) 0.1 10^3/uL (0.0-0.2); ABSOLUTE EOSINOPHILS # (AUTO) 0.1 10^3/uL (0.0-0.6); ABSOLUTE LYMPHOCYTES (AUTO) 1.8 10^3/uL (0.5-4.7); ABSOLUTE MONOCYTES (AUTO) 0.6 10^3/uL (0.1-1.4); ABSOLUTE NEUT (AUTO) 2.8 10^3/uL (1.7-8.2); BASOPHILS % (AUTO) 0.9 % (0-2); EOSINOPHILS % (AUTO) 2.2 % (0-6); HEMATOCRIT 43.4 % (36.0-47.0); HEMOGLOBIN 14.5 g/dL (12.0-15.5); LYMPHOCYTES % (AUTO) 33.9 % (13-45); MEAN CORPUSCULAR HEMOGLOBIN 30.1 pg (27.0-33.4); MEAN CORPUSCULAR HGB CONC 33.5 g/dL (32.0-36.0); MEAN CORPUSCULAR VOLUME 90 fl (80-97); MONOCYTES % (AUTO) 11.4 % (3-13); PLATELET COUNT 267 10^3/uL (150-450); RED BLOOD COUNT 4.84 10^6/uL (3.72-5.28); RED CELL DISTRIBUTION WIDTH 15.5 % (11.5-14.0); SEGMENTED NEUTROPHILS % (AUTO) 51.6 % (42-78); TOTAL CELLS COUNTED % (AUTO) 100 %; WHITE BLOOD COUNT 5.4 10^3/uL (4.0-10.5)
[2019-01-11 17:08] LABS: ALANINE AMINOTRANSFERASE 16 U/L (9-52); ALBUMIN 4.1 g/dL (3.5-5.0); ALKALINE PHOSPHATASE 98 U/L (38-126); ANION GAP 7 (5-19); ASPARTATE AMINO TRANSFERASE 18 U/L (14-36); BILIRUBIN,DIRECT 0.2 mg/dL (0.0-0.4); BILIRUBIN,TOTAL 0.5 mg/dL (0.2-1.3); BLOOD UREA NITROGEN 14 mg/dL (7-20); CALCIUM 9.4 mg/dL (8.4-10.2); CARBON DIOXIDE 28 mmol/L (22-30); CHLORIDE 104 mmol/L (98-107); GLUCOSE 93 mg/dL (75-110); POTASSIUM 4.4 mmol/L (3.6-5.0); SODIUM 139.3 mmol/L (137-145); TOTAL PROTEIN 6.8 g/dL (6.3-8.2)
== END ==
LOC: LAB 16:26
PROVIDERS: ATTEND Internal Medicine Gastroenterology
DX: R10.12 Left upper quadrant pain (principal)
CPT/HCPCS: 36415; 80048; 80076; 83690; 85025

== ENCOUNTER → 2019-01-12 | Outpatient (CLI) | payer MEDICARE ==
--- NOTE | 2019-01-12 13:51 | RADIOLOGY REPORT (SQ) ---
EXAM DESCRIPTION: CT ABD/PELVIS WITH IV ORAL COMPLETED DATE/TIME: 01/12/2019 9:57 am REASON FOR STUDY: R10.12 LEFT UPPER QUADRANT PAIN, R10.32 LEFT LOWER QUADRANT PAIN R10.12 LEFT UPPE R QUADRANT PAIN R10.32 LEFT LOWER QUADRANT PAIN COMPARISON: 11/29/2017 TECHNIQUE: CT scan of the abdomen and pelvis performed with intravenous and oral contrast using jesse edmund scanning technique with dynamic intravenous contrast injection. Images reviewed with lung, soft t issue, and bone windows. Reconstructed coronal and sagittal MPR images reviewed. Delayed images for e valuation of the urinary system also acquired. All images stored on PACS. All CT scanners at this facility use dose modulation, iterative reconstruction, and/or weight based d osing when appropriate to reduce radiation dose to as low as reasonably achievable (ALARA). [facility]: Dose Right [facility]: CareDose [facility]: Dose Right [facility]: Teradose 4D [facility]: [employer] CONTRAST TYPE AND DOSE: contrast/concentration: Isovue 350.00 mg/ml; Total Contrast Delivered: 78.0 ml; Total Saline Delivered: 67.0 ml RENAL FUNCTION: GFR > 60. RADIATION DOSE: CT Rad equipment meets quality standard of care and radiation dose reduction techniq ues were employed. CTDIvol: 9.9 - 11.6 mGy. DLP: 958 mGy-cm. . LIMITATIONS: None. FINDINGS: LOWER CHEST: Hiatal hernia. LIVER: Normal size. No masses. No dilated ducts. SPLEEN: Normal size. No focal lesions. PANCREAS: No masses. No significant calcifications. No adjacent inflammation or peripancreatic fluid collections. Pancreatic duct not dilated. GALLBLADDER: Surgically absent. ADRENAL GLANDS: No significant masses or asymmetry. RIGHT KIDNEY AND URETER: No solid masses. No significant calcifications. No hydronephrosis or hyd roureter. LEFT KIDNEY AND URETER: No solid masses. No significant calcifications. No hydronephrosis or hydr oureter. AORTA AND VESSELS: Ectasia. No aneurysm. RETROPERITONEUM: No retroperitoneal adenopathy, hemorrhage or masses. BOWEL AND PERITONEAL CAVITY: No obstruction. No visualized masses. No free fluid. No inflammatory ch anges or thickening of bowel wall. APPENDIX: Not visualized. PELVIS: No significant masses. Normal bladder. No free fluid. ABDOMINAL WALL: No masses. No hernias. BONES: No significant or acute findings. OTHER: No other significant finding. IMPRESSION: No acute findings. TECHNICAL DOCUMENTATION: JOB ID: [id number] Quality ID # [id number]: Final reports with documentation of one or more dose reduction techniques (e.g., Au tomated exposure control, adjustment of the mA and/or kV according to patient size, use of iterative reconstruction technique) 2010 [email or web address]- All Rights Reserved Reading location - IP/workstation name: [email or web address]
== END ==
LOC: RAD 09:24
PROVIDERS: ATTEND Internal Medicine Gastroenterology
DX: R10.12 Left upper quadrant pain (principal); R10.32 Left lower quadrant pain
CPT/HCPCS: 74177

== ENCOUNTER → 2019-01-19 | Outpatient (CLI) | payer MEDICARE ==
[~2019-01-19] MED LIST changes: +AMINOPHYLLINE INJ/PF 250 MG/10 ML SDV IV ONE; -BUPIVACAINE INJ/PF LIPOSOME/PF 266 MG/20 ML SDV IJ PRN; -BUPIVACAINE INJ/PF LIPOSOME/PF 266 MG/20 ML SDV ONE; -CEFAZOLIN INJ 1 GM VIAL IV PRN; -IBUPROFEN 800 MG/NS 250 ML IV PRN; +REGADENOSON INJ 0.4 MG/5 ML DISP.SYRIN IV ONE; -RINGERS SOLUTION,LACTATED 1,000 ML IV PRN; -THROMBIN (BOVINE) 5000 UNIT EPITAXIS KIT ONE; -THROMBIN (BOVINE) TOPICAL 20000 UNIT VIAL ONE; -VANCOMYCIN HCL 1,000 MG in DEXTROSE 5%-WATER 250 ML IV PRN
--- NOTE | 2019-01-20 23:13 | DRAGON STRESS TEST REPORT ---
Intravenous Lexiscan Cardiolite stress test using single photon emmision computerized tomography. Date of procedure: 01/19/2019. Ordering Provider: Dr. Ayers. Patient's status: Out Patient. Indication: Chest pain. Coronary risk factors: Age, and hypertension. Resting EKG: Sinus Rhythm. Nonspecific T changes leads V1 to V3. Stress EKG: No changes of ischemia. The patient had no chest pain or discomfort. There were no arrhythmias seen. The patient soon after the injection of IV Lexiscan had significant shortness of breath, without wheezing. This resolved with the patient having been given 50 mg of Aminophylline intravenously slowly. Reason for termination: Protocol. Conclusions: Normal EKG and hemodynamic response to IV Lexiscan. Nuclear data: At rest the patient was given 10.91 millicuries of technetium 99m sestamibi injected intravenously. As per protocol rest non gated SPECT images were obtained. Subsequently the patient was given intravenous Lexiscan at a dose of 0.4 mg in 5 mL intravenously, followed by flush with normal saline. Subsequently the stress dose of 32.1 millicuries of technetium 99m sestamibi was injected intravenously. As per protocol stress gated images were obtained. Nuclear interpretation: Review of images showed that there is a small area of mild perfusion defect involving the left ventricle apex in both the rest and stress images. This area had normal motion contraction and thickening. Hence this is a soft tissue attenuation artifact. The rest of the segments of the myocardium had normal perfusion at rest, and normal perfusion post stress with IV Lexiscan. All segments of the myocardium had normal motion, contraction, and thickening by gated study. T. I D. ratio was normal at 1.03. There is no transient ischemic dilatation of the left ventricle. Computer read rest, and stress left ventricular ejection fraction were 65 %, and 70 %, respectively. Conclusion: 1. There is no scintigraphic evidence of Lexiscan induced myocardial ischemia. 2. There is no scintigraphic evidence of myocardial infarction/scar. 3. Left ventricle apical fixed defect secondary to soft tissue attenuation artifact. Recommendations: Aggressive risk factor modification, and treating the underlying co- morbidities. MTDD
== END ==
LOC: RAD 06:57
PROVIDERS: ATTEND Internal Medicine
DX: R07.9 Chest pain, unspecified (principal); I10 Essential (primary) hypertension
CPT/HCPCS: 93017; 78452; A9500; J2785; J0280; Q9969

== ENCOUNTER → 2019-05-09 | Outpatient (CLI) | payer MEDICARE ==
--- NOTE | 2019-05-10 09:09 | RADIOLOGY REPORT (SQ) ---
EXAM DESCRIPTION: LUMBAR SPINE 2 VIEWS COMPLETED DATE/TIME: 05/09/2019 5:17 pm REASON FOR STUDY: PAIN IN RT HIP; RADICULOPATHY, LUMBAR REGION M25.551 PAIN IN RIGHT HIP M54.16 RA DICULOPATHY, LUMBAR REGION COMPARISON: CT of the abdomen pelvis with contrast from 01/12/2019. NUMBER OF VIEWS: Two views. TECHNIQUE: AP and lateral radiographic images acquired of the lumbar spine. LIMITATIONS: None. FINDINGS: MINERALIZATION: Osteopenia. SEGMENTATION: There are 5 lumbar-type vertebral bodies. There is no transitional anatomy at the lumb osacral junction. ALIGNMENT: There is grade 1 anterolisthesis of L4 on L5 and L5 on S1. There is no spondylotic curvat ure of the lumbar spine VERTEBRAE: The lumbar vertebral body heights are preserved. There is no fracture. DISCS: The L4-L5 and L5-S1 intervertebral disc spaces are narrowed and there is associated vacuum dis c phenomena. POSTERIOR ELEMENTS: There is hypertrophy and sclerosis of the L4-5 and L5-S1 facet joints. There is no pars interarticularis defect. HARDWARE: None in the spine. PARASPINAL SOFT TISSUES: Normal. PELVIS: Intact. OTHER: Cholecystectomy clips in the right upper quadrant and vascular calcifications. IMPRESSION: Degenerative spondylosis and facet arthropathy of the lumbar spine with grade 1 anteroli sthesis of L4 on L5 and L5 on S1. TECHNICAL DOCUMENTATION: JOB ID: [id number] [employer]- All Rights Reserved Reading location - IP/workstation name: [email or web address]
--- NOTE | 2019-05-10 09:16 | RADIOLOGY REPORT (SQ) ---
EXAM DESCRIPTION: HIP RIGHT AP/LATERAL COMPLETED DATE/TIME: 05/09/2019 5:17 pm REASON FOR STUDY: PAIN IN RT HIP; RADICULOPATHY, LUMBAR REGION M25.551 PAIN IN RIGHT HIP M54.16 RA DICULOPATHY, LUMBAR REGION COMPARISON: None. NUMBER OF VIEWS: Two views. TECHNIQUE: AP pelvis and additional frog-leg view of the right hip. LIMITATIONS: None. FINDINGS: MINERALIZATION: Normal. RIGHT HIP: The right femoroacetabular joint space is narrowed and there is associated chondrocalcinos is, subchondral sclerosis and osteophyte formation. There is no fracture, dislocation, or contour de formity of the femoral head. LEFT HIP: No fracture or dislocation. PUBIS AND ISCHIUM: The ilioischial and iliopectineal lines are intact. There is no diastasis of the pubic symphysis. PELVIS: No fracture. SACRUM: Intact. LOWER LUMBAR SPINE: Degenerative spondylosis and facet arthropathy at L4-5 and L5-S1. SOFT TISSUES: No findings. OTHER: The calcifications over the greater trochanter could represent calcific tendinitis. IMPRESSION: Right femoroacetabular joint osteoarthrosis and probable right gluteal calcific tendinit is. TECHNICAL DOCUMENTATION: JOB ID: [id number] [employer]- All Rights Reserved Reading location - IP/workstation name: [email or web address]
== END ==
LOC: OD 16:49
PROVIDERS: ATTEND Internal Medicine
DX: M16.11 Unilateral primary osteoarthritis, right hip (principal); M25.551 Pain in right hip; M54.16 Radiculopathy, lumbar region
CPT/HCPCS: 72100

== ENCOUNTER → 2019-05-11 | Outpatient (CLI) | payer MEDICARE ==
[2019-05-11 10:33] LABS: ABSOLUTE LYMPHOCYTES (AUTO) 1.1 10^3/uL (0.5-4.7); ABSOLUTE MONOCYTES (AUTO) 0.5 10^3/uL (0.1-1.4); ABSOLUTE NEUT (AUTO) 3.9 10^3/uL (1.7-8.2); BASOPHILS % (AUTO) 0.3 % (0-2); EOSINOPHILS % (AUTO) 0.1 % (0-6); HEMATOCRIT 41.1 % (36.0-47.0); HEMOGLOBIN 14.2 g/dL (12.0-15.5); MEAN CORPUSCULAR HGB CONC 34.6 g/dL (32.0-36.0); MEAN CORPUSCULAR VOLUME 89 fl (80-97); MONOCYTES % (AUTO) 8.3 % (3-13); PLATELET COUNT 304 10^3/uL (150-450); RED CELL DISTRIBUTION WIDTH 15.2 % (11.5-14.0); SEGMENTED NEUTROPHILS % (AUTO) 71.3 % (42-78); TOTAL CELLS COUNTED % (AUTO) 100 %; WHITE BLOOD COUNT 5.4 10^3/uL (4.0-10.5)
[2019-05-11 10:36] LABS: APPEARANCE,URINE SLIGHTLY-CLOUDY; BILIRUBIN,URINE NEGATIVE (NEGATIVE); COLOR,URINE YELLOW; GLUCOSE, URINE NEGATIVE (NEGATIVE); KETONES,URINE NEGATIVE (NEGATIVE); LEUKOCYTE ESTERASE,URINE NEGATIVE (NEGATIVE); NITRITE,URINE NEGATIVE (NEGATIVE); PROTEIN,URINE NEGATIVE (NEGATIVE); URINE SPECIFIC GRAVITY 1.014; UROBILINOGEN,URINE NEGATIVE mg/dL (<2.0)
--- NOTE | 2019-05-11 10:42 | RADIOLOGY REPORT (SQ) ---
EXAM DESCRIPTION: CHEST PA/LATERAL COMPLETED DATE/TIME: 05/11/2019 10:29 am REASON FOR STUDY: PRE-OP COMPARISON: 11/21/2017 EXAM PARAMETERS: NUMBER OF VIEWS: two views TECHNIQUE: Digital Frontal and Lateral radiographic views of the chest acquired. RADIATION DOSE: NA LIMITATIONS: none FINDINGS: LUNGS AND PLEURA: No opacities, masses or pneumothorax. No pleural effusion. MEDIASTINUM AND HILAR STRUCTURES: No masses or contour abnormalities. HEART AND VASCULAR STRUCTURES: Heart normal size. No evidence for failure. BONES: No acute findings. HARDWARE: None in the chest. OTHER: No other significant finding. IMPRESSION: NO SIGNIFICANT RADIOGRAPHIC FINDING IN THE CHEST. TECHNICAL DOCUMENTATION: JOB ID: [id number] [employer]- All Rights Reserved Reading location - IP/workstation name: [email or web address]
[2019-05-11 11:01] LABS: ANION GAP 10 (5-19); BLOOD UREA NITROGEN 12 mg/dL (7-20); CALCIUM 9.8 mg/dL (8.4-10.2); CARBON DIOXIDE 26 mmol/L (22-30); CHLORIDE 103 mmol/L (98-107); GLUCOSE 93 mg/dL (75-110); POTASSIUM 4.5 mmol/L (3.6-5.0)
--- NOTE | 2019-05-11 11:09 | EKG REPORT ---
SEVERITY:- NORMAL ECG - SINUS RHYTHM : Confirmed by: Mayda Urrutia MD 11-May-2019 11:08:34
== END ==
LOC: OD 09:27
PROVIDERS: ATTEND Orthopaedic Surgery
DX: Z01.810 Encounter for preprocedural cardiovascular examination (principal); Z01.811 Encounter for preprocedural respiratory examination; Z01.812 Encounter for preprocedural laboratory examination; M17.11 Unilateral primary osteoarthritis, right knee; I10 Essential (primary) hypertension
CPT/HCPCS: 36415; 71046; 80048; 81001; 85025; 93005; 93010

== ENCOUNTER 2019-05-12 06:55 | Day surgery (SDC) | payer MEDICARE ==
[~2019-05-12 06:55] MED LIST changes: -AMINOPHYLLINE INJ/PF 250 MG/10 ML SDV IV ONE; +KETOROLAC TROMETHAMINE 0.45% 4 DROP/0.4 ML DROPERETTE OD PRN; -REGADENOSON INJ 0.4 MG/5 ML DISP.SYRIN IV ONE
[2019-05-12] MEDS: CYCLOPENTOLATE 0.2%/PHENYLEPHRINE 1% OPH SOLN 2 ML OD PRN ×3 (07:06→07:26)
[2019-05-12] MEDS: BESIFLOXACIN HCL 0.6% OPH SUSP 5 ML BOTTLE OD PRN ×4 (07:06→08:18)
[2019-05-12] MEDS: TROPICAMIDE 1% OPH SOLN 15 ML OD PRN ×3 (07:06→07:26)
[2019-05-12] MEDS: TETRACAINE HCL 0.5% OPH SOLN 4 ML OD PRN ×4 (07:07→07:57)
[2019-05-12] MEDS ORDERED: MIDAZOLAM 2 MG/2 ML INJ ONE (07:37)
[2019-05-12] MEDS: CHONDR SU A NA/HYALUR INTRAOC KIT (SURGICARE) ONE ×2 (08:06)
[2019-05-12] MEDS: EPINEPHRINE INJ/PF 1 MG/1 ML AMPULE ONE ×2 (08:06)
[2019-05-12] MEDS: LIDOCAINE 1%/PHENYLEPHRINE 1.5% 1 ML VIAL ONE ×2 (08:06)
[2019-05-12] MEDS: DORZOLAMIDE HCL 2%/TIMOLOL MALEAT 0.5% OPH SOLN 10 ML OD PRN ×2 (08:18)
--- NOTE | 2019-05-13 07:48 | Operative Report ---
Operative Report-[facility] Operative Report: DATE OF SURGERY: 05/12/2019 PREOPERATIVE DIAGNOSIS: Cataract, right eye POSTOPERATIVE DIAGNOSIS: Cataract, right eye OPERATION: Cataract extraction with insertion of an IOL of the right eye. Intraocular Lens Model: [24.5 sn60wf] Reason for surgery was difficulty reading SURGEON: Mark Melendez MD ANESTHESIA: Topical PROCEDURE: After obtaining appropriate consent, the patient's right eye was prepped and draped in a sterile fashion as well as the surgeon in the sterile manner and cataract surgery was started. First a paracentesis blade was used to make a side-port incision. Viscoelastic was used to inflate the anterior chamber. Next a 2.4 mm incision was made with a 2.4 mm blade, clear corneal t emporarily. A continuous capsulorrhexis was made using a cystotome and Utrata forceps. Following this hydrodissection was carried out to make the delilah fully loose and mobile and it was rotated. Following this, a divide and conquer technique was used to phacoemulsify the delilah. The remaining cortex was removed with an irrigation/aspiration. Provisc was instilled into the capsular bag to inflate the bag. The intraocular lens was placed. The remaining viscoelastic material was removed with irrigation/aspiration. Following this, the incision was found to be watertight. Besivance and Cosopt was instilled into the eye and a protective shield was placed over the eye. The patient was reurned to the postoperative recovery in a stable condition.
== END 2019-05-12 09:00 | disposition home or self-care (01) ==
LOC: SC 06:55
PROVIDERS: ATTEND Internal Medicine
DX: H25.811 Combined forms of age-related cataract, right eye (principal); Z87.891 Personal history of nicotine dependence; J44.9 Chronic obstructive pulmonary disease, unspecified; I10 Essential (primary) hypertension; Z79.01 Long term (current) use of anticoagulants
CPT/HCPCS: 66984; J2250; J3490 ×2; A9270; J0171; J2370; 142

== ENCOUNTER 2019-05-30 09:27 | Day surgery (SDC) | payer MEDICARE ==
[~2019-05-30 09:27] MED LIST changes: -KETOROLAC TROMETHAMINE 0.45% 4 DROP/0.4 ML DROPERETTE OD PRN; +KETOROLAC TROMETHAMINE 0.45% 4 DROP/0.4 ML DROPERETTE OS PRN
[2019-05-30] MEDS ORDERED: FENTANYL CITRATE INJ/PF 100 MCG/2 ML AMPUL ONE (09:30)
[2019-05-30] MEDS ORDERED: ONDANSETRON HCL INJ/PF 4 MG/2 ML SDV ONE (09:30)
[2019-05-30] MEDS ORDERED: MIDAZOLAM 2 MG/2 ML INJ ONE (09:30)
[2019-05-30] MEDS: CYCLOPENTOLATE 0.2%/PHENYLEPHRINE 1% OPH SOLN 2 ML OS PRN ×3 (10:00→10:21)
[2019-05-30] MEDS: TROPICAMIDE 1% OPH SOLN 15 ML OS PRN ×3 (10:00→10:21)
[2019-05-30] MEDS: TETRACAINE HCL 0.5% OPH SOLN 4 ML OS PRN ×3 (10:00→10:31)
[2019-05-30] MEDS: BESIFLOXACIN HCL 0.6% OPH SUSP 5 ML BOTTLE OS PRN ×4 (10:01→10:50)
[2019-05-30] MEDS: LIDOCAINE 1%/PHENYLEPHRINE 1.5% 1 ML VIAL ONE ×2 (10:40)
[2019-05-30] MEDS: EPINEPHRINE INJ/PF 1 MG/1 ML AMPULE ONE ×2 (10:40)
[2019-05-30] MEDS: CHONDR SU A NA/HYALUR INTRAOC KIT (SURGICARE) ONE ×2 (10:40)
[2019-05-30] MEDS: DORZOLAMIDE HCL 2%/TIMOLOL MALEAT 0.5% OPH SOLN 10 ML OS PRN ×2 (10:50)
--- NOTE | 2019-05-30 11:44 | Operative Report ---
Operative Report-[facility] Operative Report: DATE OF SURGERY: 05/30/2019 PREOPERATIVE DIAGNOSIS: Cataracts, left eye POSTOPERATIVE DIAGNOSIS: Cataract, left eye OPERATION: Cataract extraction with insertion of an IOL of the left eye. Intraocular Lens Model: [24.0 sn60wf] Reason for surgery was difficulty seeing the television SURGEON: Mark Melendez MD ANESTHESIA: Topical PROCEDURE: After obtaining appropriate consent, the patient's left eye was prepped and draped in a sterile fashion as well as the surgeon in the sterile manner and cataract surgery was started. First a paracentesis blade was used to make a side-port incision. Viscoelastic was used to inflate the anterior chamber. Next a 2.4 mm incision was made with a 2.4 mm blade, clear corneal temporarily. A continuous capsulorrhexis was made using a cystotome and Utrata forceps. Following this hydrodissection was carried out to make the lens fully loose and mobile and it was rotated 90 degrees. Following this, a divide and conquer technique was used to phacoemulsify the lens. The remaining cortex was removed with an irrigation/aspiration. Provisc was instilled into the capsular bag to inflate the bag.The intraocular lens was placed. The remaining viscoelastic material was removed with irrigation/aspiration. Following this, the incision was found to be watertight. Besivance and Cosopt was instilled into the eye and a protective shield was placed over the eye. The patient was returned to the postoperative recovery in a stable condition.
== END 2019-05-30 11:40 | disposition home or self-care (01) ==
LOC: SC 09:27
PROVIDERS: ATTEND Internal Medicine
DX: H25.812 Combined forms of age-related cataract, left eye (principal); Z96.1 Presence of intraocular lens; J44.9 Chronic obstructive pulmonary disease, unspecified; I10 Essential (primary) hypertension; I48.91 Unspecified atrial fibrillation; K21.9 Gastro-esophageal reflux disease without esophagitis; Z79.899 Other long term (current) drug therapy; F17.210 Nicotine dependence, cigarettes, uncomplicated; Z79.51 Long term (current) use of inhaled steroids; Z88.0 Allergy status to penicillin; Z79.01 Long term (current) use of anticoagulants
CPT/HCPCS: 66984; V2632; J2250; J3490 ×2; A9270; J0171; J2405; J2370; 142; J3010

== ENCOUNTER 2019-06-06 05:33 | Observation (INO) | payer MEDICARE ==
[~2019-06-06 05:33] MED LIST changes: +BUPIVACAINE INJ/PF LIPOSOME/PF 266 MG/20 ML SDV INJ PRN; +CLINDAMYCIN 600 MG/D5W RTU 600 MG/50 ML RTUPB IV PRN; +IBUPROFEN 800 MG in NORMAL SALINE 250 ML IV PRN; -KETOROLAC TROMETHAMINE 0.45% 4 DROP/0.4 ML DROPERETTE OS PRN; +LACTATED RINGERS 1000 ML IV PRN; +LIDOCAINE 0.5% INJ-PF (5 MG/ML) 50 ML SDV SUBCUT PRN; +OXYCODONE HCL SR 10 MG TABLET PO PRN; +PANTOPRAZOLE SODIUM 20 MG TABLET.DR PO PRN; +RINGERS SOLUTION,LACTATED 1,000 ML IV PRN; +VANCOMYCIN HCL 1,000 MG in DEXTROSE 5%-WATER 250 ML IV PRN
[2019-06-06] MEDS ORDERED: OXYCODONE HCL SR 10 MG TABLET PO ONE (05:54)
[2019-06-06] MEDS ORDERED: PANTOPRAZOLE SODIUM 20 MG TABLET.DR PO ONE (05:54)
[2019-06-06] MEDS ORDERED: CEFAZOLIN INJ 1 GM VIAL ONE (05:55)
[2019-06-06] MEDS ORDERED: FENTANYL CITRATE INJ/PF 100 MCG/2 ML AMPUL ONE (06:22)
[2019-06-06] MEDS ORDERED: ONDANSETRON HCL INJ/PF 4 MG/2 ML SDV ONE (06:23)
[2019-06-06] MEDS ORDERED: DEXAMETHASONE SOD PHOSPHATE INJ 4 MG/1 ML VIAL ONE (06:23)
[2019-06-06] MEDS ORDERED: PROPOFOL INJ 200 MG/20 ML VIAL IV ONE (06:23)
[2019-06-06] MEDS ORDERED: MIDAZOLAM 2 MG/2 ML INJ ONE (06:23)
[2019-06-06] MEDS ORDERED: TRANEXAMIC ACID INJ/PF 1,000 MG/10 ML SDV ONE ×2 (06:25→10:04)
[2019-06-06] MEDS ORDERED: LIDOCAINE 0.5% INJ-PF (5 MG/ML) 50 ML SDV ONE (06:27)
[2019-06-06 07:00] LABS: INTERNATIONAL RATION (INR) 0.91; PARTIAL THROMBOPLASTIN TIME 29.2 SEC (23.5-35.8); PROTHROMBIN TIME 12.3 SEC (11.4-15.4)
[2019-06-06] MEDS ORDERED: CLINDAMYCIN 600 MG/D5W RTU 600 MG/50 ML RTUPB IV ONE (07:00)
[2019-06-06] MEDS ORDERED: DIPHENHYDRAMINE HCL 50 MG/ML VIAL IV PRN ×2 (08:01→08:35)
[2019-06-06] MEDS ORDERED: ONDANSETRON HCL INJ/PF 4 MG/2 ML SDV IV PRN ×2 (08:01→08:35)
[2019-06-06] MEDS ORDERED: MORPHINE SULFATE 10 MG/ML INJ IV PRN (08:01)
[2019-06-06] MEDS ORDERED: MEPERIDINE HCL/PF INJ 25 MG/1 ML DISP.SYRIN IV PRN (08:01)
[2019-06-06] MEDS ORDERED: FENTANYL CITRATE INJ/PF 100 MCG/2 ML AMPUL IV PRN ×3 (08:01)
[2019-06-06] MEDS ORDERED: PROMETHAZINE HCL INJ 25 MG/1 ML VIAL IV PRN ×2 (08:01)
[2019-06-06] MEDS ORDERED: BUPIVACAINE INJ/PF LIPOSOME/PF 266 MG/20 ML SDV ONE (08:12)
--- NOTE | 2019-06-06 08:34 | Operative Report ---
Operative Report DATE OF SURGERY: 06/06/19 PREOPERATIVE DIAGNOSIS: Right knee arthritis OPERATION: Right knee arthroplasty SURGEON: FRANKLYN CANTRELL ANESTHESIA: Spinal TISSUE REMOVED OR ALTERED: Bone to pathology ESTIMATED BLOOD LOSS: 25 PROCEDURE: Implants used: Femur: Estero triathlon size 3 CR femur Tibia: 4 tibia Tibial liner: 9 mm CS insert Patella: 29 mm oval patella Procedure with the patient supine on the operating table the right the limb is prepped and draped in a sterile fashion. The limb was elevated for exsanguination and the tourniquet inflated to 280 torr. A standard midline median parapatellar approach the knee is taken. Access is gained to the femoral canal through the intercondylar notch. Intramedullary alignment instrumentation used to resect 10 mm of distal femur in 5 of valgus. Sizing guide indicated a size 3 femur. Appropriate cutting jig is then used to fashion anterior posterior and chamfer cuts. A trial reduction femurs performed and this is judged to be adequate. Attention was next turned to the tibia. Using an extra medullary alignment system 9 millimeters was resected off the lateral tibial plateau. This is sized to a size 4 tibia. A trial reduction was now performed with a 3 femur and a 4 tibia using a 9 millimeters spacer. It is full extension and central patellofemoral tracking. The articular surface the patella was next resected using an oscillating saw. All trial implants were removed. Polymethylmethacrylate is mixed and used to cement the above implants in place. On adequate curing the cement excess cement was removed the tourniquet was deflated hemostasis obtained the wound is then closed in layers using interrupted Vicryl followed by erick. A sterile compressive dressing was applied and the patient returned to recovery room in satisfactory condition.
[2019-06-06] MEDS ORDERED: ZOLPIDEM TARTRATE 5 MG TABLET PO PRN (08:35)
[2019-06-06] MEDS ORDERED: OXYCODONE HCL IR 5 MG TABLET PO PRN (08:35)
[2019-06-06] MEDS ORDERED: ACETAMINOPHEN 325 MG TABLET PO PRN (08:35)
[2019-06-06] MEDS ORDERED: MAG HYDROX/AL HYDROX/SIMETH SUSP 30 ML UDCUP PO PRN (08:35)
[2019-06-06] MEDS ORDERED: EPHEDRINE SULFATE INJ 50 MG/1 ML AMPULE ONE (09:00)
--- NOTE | 2019-06-06 09:41 | RADIOLOGY REPORT (SQ) ---
EXAM DESCRIPTION: KNEE RIGHT 2 VIEWS COMPLETED DATE/TIME: 06/06/2019 9:27 am REASON FOR STUDY: Post OP -Long Cassette in PACU M17.11 UNILATERAL PRIMARY OSTEOARTHRITIS, RIGHT KN EE COMPARISON: None. NUMBER OF VIEWS: Two view(s). TECHNIQUE: Digital radiographic images of the right knee post-procedure. LIMITATIONS: None. FINDINGS: BONES: No worrisome or unexpected findings post-procedure. DEVICE: Total knee arthroplasty SOFT TISSUES: No worrisome findings. Expected postoperative soft tissue changes. IMPRESSION: SATISFACTORY POSTOPERATIVE RIGHT KNEE. TECHNICAL DOCUMENTATION: JOB ID: [id number] [email or web address]- All Rights Reserved Reading location - IP/workstation name: [email or web address]
[2019-06-06] MEDS ORDERED: TRANEXAMIC ACID INJ/PF 1,000 MG/10 ML SDV IV ONE (10:00)
[2019-06-06] MEDS ORDERED: PHENYLEPHRINE HCL INJ/PF 10 MG/1 ML SDV ONE (10:49)
[2019-06-06] MEDS: RINGERS SOLUTION,LACTATED 1,000 ML IV PRN ×2 (11:16→20:21)
[2019-06-06] MEDS: IBUPROFEN 800 MG in NORMAL SALINE 250 ML IV SCH ×2 (14:49→21:17)
[2019-06-06] MEDS ORDERED: TRAMADOL HCL 50 MG TABLET PO PRN (15:39)
[2019-06-06] MEDS ORDERED: APIXABAN 5 MG TABLET PO SCH (18:00)
[2019-06-06] MEDS ORDERED: ASPIRIN 81 MG TABLET, ENT COATED PO SCH (18:00)
[2019-06-06] MEDS: OXYCODONE HCL SR 10 MG TABLET PO SCH (18:28)
[2019-06-06] MEDS: SENNOSIDES/DOCUSATE 8.6-50 MG 1 EACH TABLET PO SCH (18:29)
[2019-06-06] MEDS: ONDANSETRON 4 MG TAB.RAPDIS PO PRN (20:20)
[2019-06-06] MEDS ORDERED: VANCOMYCIN HCL 1,000 MG in DEXTROSE 5%-WATER 250 ML IV ONE (20:30)
[2019-06-06] MEDS: LISINOPRIL 10 MG TABLET PO SCH (21:17)
[2019-06-07] MEDS: IBUPROFEN 800 MG in NORMAL SALINE 250 ML IV SCH (05:15)
[2019-06-07] MEDS: OXYCODONE HCL SR 10 MG TABLET PO SCH (05:15)
[2019-06-07] MEDS: ONDANSETRON 4 MG TAB.RAPDIS PO PRN (05:16)
[2019-06-07] MEDS ORDERED: PANTOPRAZOLE SODIUM 40 MG TABLET.DR PO SCH (06:00)
[2019-06-07 06:27] LABS: HEMATOCRIT 35.5 % (36.0-47.0); MEAN CORPUSCULAR HGB CONC 33.7 g/dL (32.0-36.0); MEAN CORPUSCULAR VOLUME 89 fl (80-97); PLATELET COUNT 265 10^3/uL (150-450); RED BLOOD COUNT 3.99 10^6/uL (3.72-5.28); RED CELL DISTRIBUTION WIDTH 15.6 % (11.5-14.0); WHITE BLOOD COUNT 8.9 10^3/uL (4.0-10.5)
[2019-06-07 06:52] LABS: ANION GAP 11 (5-19); BLOOD UREA NITROGEN 12 mg/dL (7-20); CALCIUM 9.1 mg/dL (8.4-10.2); CARBON DIOXIDE 26 mmol/L (22-30); CHLORIDE 102 mmol/L (98-107); GLUCOSE 86 mg/dL (75-110)
--- NOTE | 2019-06-07 06:56 | PDOC DISCHARGE SUMMARY ---
Impression - Admit/DC Date/PCP Admission Date/Primary Care Provider: 06/06/19 05:33 HIPOLITO MCKEON MD Discharge Date: 06/07/19 - Discharge Diagnosis (1) Arthritis of right knee Is this a current diagnosis for this admission?: Yes - Additional Information Resuscitation Status: Full Code Discharge Diet: Regular Discharge Activity: Balance Activity w/Rest, No tub bath Referrals: FRANKLYN CANTRELL MD [ACTIVE STAFF] - 06/23/19 10:00 am Home Medications: Apixaban [Eliquis 5 mg Tablet] 5 mg PO BID 06/06/19 Besifloxacin HCl [Besivance 0.6% Oph Susp 5 ml] 1 drop OS BID 06/06/19 Bromfenac Sodium [Prolensa] 1 drop OS NOON 06/06/19 Budesonide/Formoterol Fumarate [Symbicort Hfa 160-4.5 Mcg Inhaler 6 gm] 1 puff IH Q12HP PRN 06/06/19 Difluprednate [Durezol] 1 drop OS BID 06/06/19 Fluticasone/Umeclidin/Vilanter [Trelegy 100-62.5-25 Mcg Ellipta 14 Dose/Dpi] 1 each IH DAILY 06/06/19 Lisinopril [Prinivil 40 mg Tablet] 40 mg PO Q12 06/06/19 Metoprolol Succinate [Toprol Xl] 200 mg PO DAILY 06/06/19 Omeprazole 20 mg PO DAILY 06/06/19 History of Present Illiness History of Present Illness: ALEJANDRO MINOR is a 78 year old female Patient is a 78-year-old female with progressive right knee pain and functional disability second osteoarthritis. Patient is admitted for elective right knee arthroplasty. Hospital Course Hospital Course: Patient is admitted through the operating room where she undergoes an unconjugated right knee arthroplasty. She is returned to floor in satisfactory condition. She makes excellent progress with physical therapy on the day of surgery. Dressing was changed on the first postoperative morning because of some drainage. Wound is well approximated erick clean dry and intact. Minimal pedal edema. Distal neurovascular examination is intact. Physical Exam Vital Signs: Temp Pulse Resp BP Pulse Ox 36.6 C 73 18 107/53 L 95 06/06/19 23:14 06/06/19 23:14 06/06/19 23:14 06/06/19 23:14 06/06/19 23:14 Intake & Output 06/05/19 06/06/19 06/07/19 06:59 06:59 06:59 Intake Total 0 7259 Output Total 3514 Balance 0 3745 Weight 77.7 kg General appearance: PRESENT: no acute distress Head exam: PRESENT: normocephalic Respiratory exam: PRESENT: unlabored Cardiovascular exam: PRESENT: RRR Pulses: PRESENT: +1 pedal pulses bilateral Vascular exam: PRESENT: normal capillary refill Musculoskeletal exam: PRESENT: other - As above Neurological exam: PRESENT: alert, awake, oriented to person, oriented to place, oriented to time, oriented to situation. ABSENT: motor sensory deficit Psychiatric exam: PRESENT: appropriate affect, normal mood. ABSENT: homicidal ideation, suicidal ideation Skin exam: PRESENT: dry, intact, warm. ABSENT: cyanosis, rash Results Laboratory Results: WBC 8.9 10^3/uL (4.0-10.5) 06/07/19 05:46 RBC 3.99 10^6/uL (3.72-5.28) 06/07/19 05:46 Hgb 12.0 g/dL (12.0-15.5) 06/07/19 05:46 Hct 35.5 % (36.0-47.0) L 06/07/19 05:46 MCV 89 fl (80-97) 06/07/19 05:46 MCH 30.0 pg (27.0-33.4) 06/07/19 05:46 MCHC 33.7 g/dL (32.0-36.0) 06/07/19 05:46 RDW 15.6 % (11.5-14.0) H 06/07/19 05:46 Plt Count 265 10^3/uL (150-450) 06/07/19 05:46 PT 12.3 SEC (11.4-15.4) 06/06/19 06:20 INR 0.91 06/06/19 06:20 APTT 29.2 SEC (23.5-35.8) 06/06/19 06:20 Impressions: Knee X-Ray 06/06/19 08:36 IMPRESSION: SATISFACTORY POSTOPERATIVE RIGHT KNEE. Plan Plan of Treatment: Patient be discharged home with home health services and DME on weightbearing as tolerated basis. Follow-up with Dr. Cantrell and [facility] for surgery in 2 weeks for staple removal. Time Spent: Less than 30 Minutes Stroke Is this a Stroke Patient?: No Stroke Pt being discharged on Anti-thrombolytic therapy?: Yes Acute Heart Failure - Is this a Heart Failure Patient?: No
[2019-06-07] MEDS: LISINOPRIL 10 MG TABLET PO SCH (09:20)
[2019-06-07] MEDS: SENNOSIDES/DOCUSATE 8.6-50 MG 1 EACH TABLET PO SCH (09:20)
[2019-06-07] MEDS ORDERED: FLUTICASONE/UMECLIDIN/VILANTER 100-62.5-25 MCG/DOSE IH SCH (10:00)
[2019-06-07] MEDS ORDERED: PRENATAL VITAMIN W DHA CAPSULE PO SCH (10:00)
[2019-06-07] MEDS ORDERED: (PENDING PHARMACY ID) (Metoprolol Succinate [Toprol Xl] 200 MG) PO SCH (10:00)
[2019-06-07] MEDS ORDERED: METOPROLOL SUCCINATE 50 MG TAB.SR.24H PO SCH (10:00)
[2019-06-07 10:03] VITALS: BP 123/56
== END 2019-06-07 11:18 | disposition home health service (06) ==
LOC: INOR 05:33 → INTOOBSV 05:33 → 4S 10:53
PROVIDERS: ADMIT Orthopaedic Surgery; ATTEND Orthopaedic Surgery
DX: M17.11 Unilateral primary osteoarthritis, right knee (principal); J44.9 Chronic obstructive pulmonary disease, unspecified; I10 Essential (primary) hypertension; F41.9 Anxiety disorder, unspecified; Z96.652 Presence of left artificial knee joint; Z79.899 Other long term (current) drug therapy; Z87.891 Personal history of nicotine dependence
CPT/HCPCS: 36415 ×2; 85027; 85610; 85730; 80048; 88305 ×2; 88311; 73560; 94799; 97530; 97110; 97116 ×2; 97163; 97535; 97166; 01402; 27447; C1713 ×3; C1776 ×2; A9270 ×15; J2250; J1100; J3490 ×5; J2370; J2405; J7060; J7050; J7120; J2704; J3370; C9290; J1741; J0690; J3010; S0119

== ENCOUNTER 2019-06-08 18:08 | Inpatient (IN) | payer MEDICARE ==
[2019-06-08 18:51] LABS: ABSOLUTE LYMPHOCYTES (AUTO) 0.8 10^3/uL (0.5-4.7); ABSOLUTE MONOCYTES (AUTO) 0.9 10^3/uL (0.1-1.4); ABSOLUTE NEUT (AUTO) 7.5 10^3/uL (1.7-8.2); BASOPHILS % (AUTO) 0.4 % (0-2); EOSINOPHILS % (AUTO) 0.3 % (0-6); HEMATOCRIT 37.3 % (36.0-47.0); HEMOGLOBIN 12.6 g/dL (12.0-15.5); LYMPHOCYTES % (AUTO) 9.1 % (13-45); MEAN CORPUSCULAR HEMOGLOBIN 29.9 pg (27.0-33.4); MEAN CORPUSCULAR HGB CONC 33.8 g/dL (32.0-36.0); MEAN CORPUSCULAR VOLUME 89 fl (80-97); MONOCYTES % (AUTO) 10.2 % (3-13); PLATELET COUNT 264 10^3/uL (150-450); RED BLOOD COUNT 4.21 10^6/uL (3.72-5.28); RED CELL DISTRIBUTION WIDTH 15.5 % (11.5-14.0); TOTAL CELLS COUNTED % (AUTO) 100 %; WHITE BLOOD COUNT 9.3 10^3/uL (4.0-10.5)
[2019-06-08 19:05] LABS: ALBUMIN 3.5 g/dL (3.5-5.0); ALKALINE PHOSPHATASE 96 U/L (38-126); ANION GAP 7 (5-19); ASPARTATE AMINO TRANSFERASE 21 U/L (14-36); BILIRUBIN,DIRECT 0.1 mg/dL (0.0-0.4); BLOOD UREA NITROGEN 11 mg/dL (7-20); CALCIUM 8.9 mg/dL (8.4-10.2); CARBON DIOXIDE 28 mmol/L (22-30); CHLORIDE 103 mmol/L (98-107); GLUCOSE 124 mg/dL (75-110); POTASSIUM 3.7 mmol/L (3.6-5.0); TOTAL PROTEIN 6.2 g/dL (6.3-8.2)
[2019-06-08 20:38] LABS: APPEARANCE,URINE CLEAR; BILIRUBIN,URINE NEGATIVE (NEGATIVE); COLOR,URINE YELLOW; GLUCOSE, URINE NEGATIVE (NEGATIVE); KETONES,URINE TRACE mg/dL (NEGATIVE); PROTEIN,URINE NEGATIVE (NEGATIVE); URINE SPECIFIC GRAVITY 1.018; UROBILINOGEN,URINE NEGATIVE mg/dL (<2.0)
[2019-06-08] MEDS ORDERED: ALBUTEROL SULFATE 0.083% NEB 2.5 MG/3 ML AMPUL NEB ONE (21:54)
[2019-06-08] MEDS ORDERED: METHYLPREDNISOLONE INJ 125 MG/2 ML SDV IV ONE (21:54)
[2019-06-08] MEDS ORDERED: IPRATROPIUM/ALBUTEROL 0.5-2.5 MG/3 ML AMPUL NEB ONE (21:54)
--- NOTE | 2019-06-08 22:02 | ER Document Report ---
ED General - General Chief Complaint: General Weakness Stated Complaint: GENERAL WEAKNESS Time Seen by Provider: 06/08/19 21:17 Primary Care Provider: HIPOLITO MCKEON MD [Primary Care Provider] - Follow up as needed Notes: 78-year-old female brought to the emergency department by family due to increased sleepiness, hypoxia and difficult to awaken. Patient had a right knee replaced on Thursday, was discharged from hospital on Thursday. Last night she had a lot of pain and today she was significantly more sleepy than usual. She was 88% on room air at home when EMS arrived. She did have to be on oxygen for a prolonged time. Postoperatively as well before being discharged. Patient is taking oxycodone 5 mg every 6 hours as needed for her pain, has only had it twice today. Daughter notes that she has been increasingly weak and increasingly fatigued today as the day is gone on, decreased oral intake and feeling very weak. Temperature was 100.2 at home. TRAVEL OUTSIDE OF THE [place] IN LAST 30 DAYS: No - Related Data Allergies/Adverse Reactions: Penicillins Allergy (Mild, Verified 06/06/19 05:48) Hives Past Medical History - General Information source: Patient - Social History Smoking Status: Former Smoker Chew tobacco use (# tins/day): No Frequency of alcohol use: None Drug Abuse: None Family History: Reviewed & Not Pertinent Patient has suicidal ideation: No Patient has homicidal ideation: No - Past Medical History Cardiac Medical History: Reports: Hx Atrial Fibrillation, Hx Hypertension Denies: Hx Congestive Heart Failure, Hx Coronary Artery Disease, Hx Heart Attack, Hx Hypercholesterolemia, Hx Peripheral Vascular Disease, Hx Pulmonary Embolism, Hx Heart Murmur Pulmonary Medical History: Reports: Hx COPD, Hx Pneumonia - last one couple weeks ago Denies: Hx Asthma, Hx Bronchitis, Hx Respiratory Failure, Hx Sleep Apnea, Hx Tuberculosis Neurological Medical History: Denies: Hx Cerebrovascular Accident, Hx Seizures Endocrine Medical History: Denies: Hx Hyperthyroidism, Hx Hypothyroidism Renal/ Medical History: Denies: Hx Kidney Stones, Hx Peritoneal Dialysis Malignancy Medical History: Denies: Hx Lung Cancer GI Medical History: Reports: Hx Gastroesophageal Reflux Disease. Denies: Hx Crohn's Disease, Hx Hepatitis, Hx Hiatal Hernia, Hx Irritable Bowel, Hx Liver F ailure, Hx Pancreatitis, Hx Ulcer Musculoskeletal Medical History: Reports Hx Arthritis - knee, Denies Hx Fibromyalgia, Denies Hx Muscular Dystrophy Psychiatric Medical History: Denies: Hx Bipolar Disorder, Hx Depression, Hx Post Traumatic Stress Disorder Traumatic Medical History: Reports: Hx Fractures Infectious Medical History: Denies: Hx Hepatitis Past Surgical History: Reports: Hx Cholecystectomy, Hx Hysterectomy, Hx Orthopedic Surgery. Denies: Hx Appendectomy, Hx Bowel Surgery, Hx Section, Hx Colostomy, Hx Coronary Artery Bypass Graft, Hx Gastric Bypass Surgery, Hx Herniorrhaphy, Hx Mastectomy, Hx Open Heart Surgery, Hx Pacemaker, Hx Tonsillectomy, Hx Tubal Ligation - Immunizations Hx Diphtheria, Pertussis, Tetanus Vaccination: No Hx Pneumococcal Vaccination: 12/27/12 Review of Systems - Review of Systems Constitutional: See HPI, Weakness EENT: No symptoms reported Cardiovascular: No symptoms reported Respiratory: See HPI - Hypoxia Gastrointestinal: No symptoms reported Musculoskeletal: See HPI - Right knee replacement. -: Yes All other systems reviewed and negative Physical Exam - Vital signs Vitals: Resp Pulse Ox 17 88 L 06/08/19 18:12 06/08/19 18:12 Interpretation: Hypoxic - Notes Notes: GENERAL: Alert, interacts well. No acute distress. HEAD: Normocephalic, atraumatic EYES: Pupils equal, round and reactive to light, extraocular movements intact. ENT: Oral mucosa moist, tongue midline. NECK: Full range of motion, supple, trachea midline. LUNGS: Diffuse expiratory wheezing, wet cough. No respiratory distress. HEART: Regular rate and rhythm, no murmurs, gallops, rubs. ABDOMEN: Soft, nontender, nondistended, bowel sounds present in all 4 quadrants. EXTREMITIES: Moves all 4 extremities spontaneously, right knee surgical dressing is still in place, knee is warm, moderately swollen, erythema extending out to mid thigh and mid calf particularly posteriorly, radial and dorsalis pedis pulses 2/4 bilaterally. No cyanosis. NEUROLOGICAL: Alert and oriented x3, normal speech. PSYCH: Normal mood, normal affect. SKIN: Warm, Dry. Course - Re-evaluation Re-evalutation: 06/09/19 02:33 CBC unremarkable, CMP shows mild hyperglycemia at 124, urinalysis shows moderate blood, chest x-ray does not show any acute process, after breathing treatments her wheezing has resolved but she is still hypoxic particularly with ambulation, patient had a CTA of the chest to look for pulmonary embolism 3 days out from surgery, this was negative for PE but did show right upper lobe pneumonia. Patient was started on Rocephin, blood cultures were obtained, discussed with Dr. Mckeon, admitted to his service on the I[facility]. - Vital Signs Vital signs: Temp Pulse Resp BP Pulse Ox 97.9 F 13 126/75 H 96 06/09/19 01:00 06/09/19 01:00 06/09/19 01:00 06/09/19 01:00 - Laboratory Result Diagrams: 06/08/19 18:26 06/08/19 18:26 Laboratory results interpreted by me: 06/08/19 06/08/19 06/08/19 18:26 18:26 20:05 RDW 15.5 H Lymph % (Auto) 9.1 L Seg Neutrophils % 80.0 H Glucose 124 H Total Protein 6.2 L Urine Ketones TRACE H Urine Blood MODERATE H Discharge - Discharge Clinical Impression: Presence of right artificial knee joint, Hypoxia Right upper lobe pneumonia Qualifiers: Pneumonia type: due to unspecified organism Qualified Code(s): J18.9 - Pneumonia, unspecified organism Condition: Fair Disposition: ADMITTED INPATIENT Admitting Provider: Andria Unit Admitted: [facility] Referrals: HIPOLITO MCKEON MD [Primary Care Provider] - Follow up as needed
--- NOTE | 2019-06-08 22:45 | RADIOLOGY REPORT (SQ) ---
CLINICAL HISTORY: hypoxic, febrile COMPARISON: None. TECHNIQUE: XR CHEST 2 VIEWS 06/08/2019 9:19 PM HAY BALER FINDINGS: Cardiac silhouette is normal in size. Lungs are hyperinflated. There is no focal consolidation. There is no pleural effusion. There is no pneumothorax. There are no acute osseous findings. IMPRESSION: Emphysema without pneumonia.
[2019-06-08] MEDS ORDERED: OXYCODONE HCL IR 5 MG TABLET PO ONE (23:07)
--- NOTE | 2019-06-09 00:46 | RADIOLOGY REPORT (SQ) ---
EXAM DESCRIPTION: CT CHEST ANGIOGRAPHY WITHOUT THEN WITH IV CONTRAST COMPLETED DATE/TME: 06/08/2019 23:48 CLINICAL HISTORY: 78 years, Female, post-op, hypoxia COMPARISON: 12/23/2017 CT TECHNIQUE: [id number] Images stored on PACS. All CT scanners at this facility use dose modulation, iterative reconstruction, and/or weight based dosing when appropriate to reduce radiation dose to as low as reasonably achievable (ALARA). Axial images with coronal and sagittal MIPS [facility]: Dose Right [facility]: CareDose [facility]: Dose Right [facility]: Teradose 4D [facility]: [employer] LIMITATIONS: None. FINDINGS: The mediastinal vasculature enhances normally. No filling defect to suggest pulmonary embolus. Atheromatous change of the thoracic aorta, as before. No evidence for dissection. Probable ulcerative plaque associated with the descending thoracic aorta which has a tortuous course. Limited evaluation of the upper abdomen shows a small hiatal hernia. Osseous structures are grossly intact. No pneumothorax. Mild emphysematous changes in the upper lobes and apices. Airspace opacities of the lateral right upper lobe having a slightly nodular appearance but likely reflecting pneumonia. Minor pleural thickening in the posterior right lung base with adjacent subsegmental atelectasis and bronchial wall thickening. IMPRESSION: Negative for pulmonary embolus. Nodular airspace opacity of the right upper lobe likely reflecting pneumonia. Recommend follow-up to ensure resolution. Areas of bronchial wall thickening in the posterior right lung base with subsegmental atelectasis and minor pleural thickening. Stable tortuosity of the descending thoracic aorta with probable ulcerative plaque formation TECHNICAL DOCUMENTATION: Quality ID # [id number]: Final reports with documentation of one or more dose reduction techniques (e.g., Automated exposure control, adjustment of the mA and/or kV according to patient size, use of iterative reconstruction technique) copyright 2010 [employer]- All Rights Reserved
[2019-06-09] MEDS ORDERED: CEFTRIAXONE 1 GM/D5W RTU 1 GM/50 ML RTUPB IV ONE (02:31)
[2019-06-09] MEDS ORDERED: CEFTRIAXONE INJ 1000 MG VIAL ONE (03:17)
[2019-06-09] MEDS ORDERED: LEVOFLOXACIN 750 MG/D5W RTU 750 MG/150 ML RTUPB IV ONE (06:00)
[2019-06-09] MEDS ORDERED: CEFEPIME 2 GM/D5W RTU 2 GM/50 ML RTUPB IV ONE (06:00)
[2019-06-09 06:10] LABS: ARTERIAL BLOOD BASE EXCESS 3.3 mmol/L; ARTERIAL BLOOD H2CO3 1.31 mmol/L (1.05-1.35); ARTERIAL BLOOD O2 SATURATION 91.2 % (94-98); ARTERIAL BLOOD PCO2 43.4 mmHg (35-45); ARTERIAL BLOOD PH 7.43 (7.35-7.45); ARTERIAL BLOOD PO2 59.2 mmHg (80-100); ARTERIAL BLOOD TOTAL CO2 29.4 mmol/L (21-25)
[2019-06-09 06:11] LABS: ARTERIAL BLOOD FIO2 24%
[2019-06-09] MEDS: RINGERS SOLUTION,LACTATED 1,000 ML IV PRN (06:21)
--- NOTE | 2019-06-09 06:49 | EKG REPORT ---
SEVERITY:- BORDERLINE ECG - SINUS RHYTHM LA ABNORMALITY EARLY PRECORDIAL TRANSITION, CONSIDER OLD TRUE POST [place] : Confirmed by: Nawaf Castillo MD 09-Jun-2019 06:48:31
[2019-06-09 07:02] LABS: APPEARANCE,URINE CLEAR; BILIRUBIN,URINE NEGATIVE (NEGATIVE); COLOR,URINE YELLOW; GLUCOSE, URINE 150 mg/dL (NEGATIVE); KETONES,URINE 20 mg/dL (NEGATIVE); LEUKOCYTE ESTERASE,URINE NEGATIVE (NEGATIVE); NITRITE,URINE NEGATIVE (NEGATIVE); PROTEIN,URINE NEGATIVE (NEGATIVE); UROBILINOGEN,URINE NEGATIVE mg/dL (<2.0)
--- NOTE | 2019-06-09 07:03 | PDOC CONSULTATION ---
Consultation Consult Date: 06/09/19 Provider Consulted: FRANKLYN CANTRELL Consult reason:: Readmission status post total knee arthroplasty History of Present Illness Admission Date/PCP: 06/09/19 02:53 HPIOLITO MCKEON MD History of Present Illness: ALEJANDRO MINOR is a 78 year old female 78-year-old female status post knee arthroplasty with discharge home with home health services and DME. Patient readmitted with shortness of breath nausea and otherwise malaise. Past Medical History Cardiac Medical History: Reports: Atrial Fibrillation, Hypertension Denies: Congestive Heart Failure, Coronary Artery Disease, Myocardial Infarction, Hyperlipidema, Peripheral Vascular Disease, Pulmonary Embolism, Heart Murmur Pulmonary Medical History: Reports: Chronic Obstructive Pulmonary Disease (COPD), Pneumonia - last one couple weeks ago Denies: Asthma, Bronchitis, Respiratory Failure, Sleep Apnea, Tuberculosis Neurological Medical History: Denies: Seizures Endocrine Medical History: Denies: Hyperthyroidism, Hypothyroidism Malignancy Medical History: Denies: Lung Cancer GI Medical History: Reports: Gastroesophageal Reflux Disease Denies: Crohn's Disease, Hepatitis, Hiatal Hernia Musculoskeltal Medical History: Reports: Arthritis - knee Denies: Fibromyalgia Psychiatric Medical History: Denies: Bipolar Disorder, Depression, Post Traumatic Stress Disorder Hematology: Denies: Anemia, Sickle Cell Disease Past Surgical History Past Surgical History: Reports: Cholecystectomy, Hysterectomy, Orthopedic Surger y - Status post total knee arthroplasty June 06, 2012 Denies: Amputation, Appendectomy, Section, Colostomy, Coronary Artery Bypass Graft, Gastric Bypass Surgery, Herniorrhaphy, Mastectomy, Pacemaker, Tonsillectomy, Tubal Ligation Social History Information Source: Patient, [facility], [facility] Records Lives with: Family Smoking Status: Former Smoker Electronic Cigarette use?: No Frequency of Alcohol Use: None Hx Recreational Drug Use: No Drugs: None Hx Prescription Drug Abuse: No Family History Family History: Reviewed & Not Pertinent Parental Family History Reviewed: No Children Family History Reviewed: No Sibling(s) Family History Reviewed.: No Medication/Allergy Home Medications: Apixaban [Eliquis 5 mg Tablet] 5 mg PO BID 06/06/19 Besifloxacin HCl [Besivance 0.6% Oph Susp 5 ml] 1 drop OS BID 06/06/19 Bromfenac Sodium [Prolensa] 1 drop OS NOON 06/06/19 Budesonide/Formoterol Fumarate [Symbicort Hfa 160-4.5 Mcg Inhaler 6 gm] 1 puff IH Q12HP PRN 06/06/19 Difluprednate [Durezol] 1 drop OS BID 06/06/19 Fluticasone/Umeclidin/Vilanter [Trelegy 100-62.5-25 Mcg Ellipta 14 Dose/Dpi] 1 each IH DAILY 06/06/19 Lisinopril [Prinivil 40 mg Tablet] 40 mg PO Q12 06/06/19 Metoprolol Succinate [Toprol Xl] 200 mg PO DAILY 06/06/19 Omeprazole 20 mg PO DAILY 06/06/19 Allergies/Adverse Reactions: Penicillins Allergy (Mild, Verified 06/06/19 05:48) Hives Review of Systems All systems: as per PMH Physical Exam Vital Signs: Temp Pulse Resp BP Pulse Ox 36.5 C 78 16 131/62 H 93 06/09/19 04:21 06/09/19 04:45 06/09/19 04:21 06/09/19 04:21 06/09/19 04:21 Intake & Output 06/08/19 06/09/19 06/10/19 06:59 06:59 06:59 Intake Total 50 Balance 50 Weight 72.9 kg Physical Exam: Patient sitting on bed chair commode. Patient is alert, oriented, and appropriate. General appearance: PRESENT: no acute distress Head exam: PRESENT: normocephalic Respiratory exam: PRESENT: unlabored, other - On nasal prong oxygen Cardiovascular exam: PRESENT: RRR Extremities exam: PRESENT: other - Knee dressing clean dry and intact Results Laboratory Results: 06/08/19 18:26 06/08/19 18:26 06/08/19 06/08/19 06/08/19 18:26 18:26 20:05 WBC 9.3 RBC 4.21 Hgb 12.6 Hct 37.3 MCV 89 MCH 29.9 MCHC 33.8 RDW 15.5 H Plt Count 264 Seg Neutrophils % 80.0 H Carbonic Acid HCO3/H2CO3 Ratio ABG pH ABG pCO2 ABG pO2 ABG HCO3 ABG O2 Saturation ABG Base Excess FiO2 Sodium 137.8 Potassium 3.7 Chloride 103 Carbon Dioxide 28 Anion Gap 7 BUN 11 Creatinine 0.70 Est GFR ( Amer) > 60 Glucose 124 H Calcium 8.9 Total Bilirubin 1.0 AST 21 Alkaline Phosphatase 96 Total Protein 6.2 L Albumin 3.5 Urine Color YELLOW Urine Appearance CLEAR Urine pH 6.0 Ur Specific [place] 1.018 Urine Protein NEGATIVE Urine Glucose (UA) NEGATIVE Urine Ketones TRACE H Urine Blood MODERATE H Urine RBC (Auto) 9 06/09/19 06:00 WBC RBC Hgb Hct MCV MCH MCHC RDW Plt Count Seg Neutrophils % Carbonic Acid 1.31 HCO3/H2CO3 Ratio 21:1 ABG pH 7.43 ABG pCO2 43.4 ABG pO2 59.2 L ABG HCO3 28.0 H ABG O2 Saturation 91.2 L ABG Base Excess 3.3 FiO2 24% Sodium Potassium Chloride Carbon Dioxide Anion Gap BUN Creatinine Est GFR ( Amer) Glucose Calcium Total Bilirubin AST Alkaline Phosphatase Total Protein Albumin Urine Color Urine Appearance Urine pH Ur Specific [place] Urine Protein Urine Glucose (UA) Urine Ketones Urine Blood Urine RBC (Auto) Impressions: Chest X-Ray 06/08/19 21:19 IMPRESSION: Emphysema without pneumonia. Chest/Abdomen CTA 06/08/19 23:48 IMPRESSION: Negative for pulmonary embolus. Nodular airspace opacity of the right upper lobe likely reflecting pneumonia. Recommend follow-up to ensure resolution. Areas of bronchial wall thickening in the posterior right lung base with subsegmental atelectasis and minor pleural thickening. Stable tortuosity of the descending thoracic aorta with probable ulcerative plaque formation TECHNICAL DOCUMENTATION: Quality ID # 436: Final reports with documentation of one or more dose reduction techniques (e.g., Automated exposure control, adjustment of the mA and/or kV according to patient size, use of iterative reconstruction technique) copyright 2011 [employer]- All Rights Reserved Status: Imported from PACS Assessment & Plan - Diagnosis (1) Knee joint replacement status Qualifiers: Laterality: unspecified laterality Qualified Code(s): Z96.659 - Presence of unspecified artificial knee joint Is this a current diagnosis for this admission?: Yes Plan: Mobilize with physical therapy and weightbearing as tolerated basis. - Time Time Spent: 30 to 50 Minutes Anticipated discharge: Home with Homehealth Within: Other
[2019-06-09 07:19] LABS: NT PRO BNP 1280 pg/mL (<450)
[2019-06-09 07:20] LABS: CREATINE KINASE MB < 0.22 ng/mL (<4.55)
[2019-06-09] MEDS ORDERED: ENOXAPARIN SODIUM INJ 40 MG/0.4 ML DISP.SYRIN SUBCUT SCH (10:00)
[2019-06-09] MEDS: CEFEPIME 2 GM/D5W RTU 2 GM/50 ML RTUPB IV SCH ×2 (10:51→22:49)
[2019-06-09] MEDS ORDERED: (PENDING PHARMACY ID) (Budesonide/Formoterol Fumarate 1 PUFF) IH PRN (15:16)
[2019-06-09] MEDS: LISINOPRIL 10 MG TABLET PO SCH ×2 (16:01→22:45)
[2019-06-09] MEDS: PANTOPRAZOLE SODIUM 40 MG TABLET.DR PO SCH (16:01)
[2019-06-09] MEDS: METOPROLOL SUCCINATE 50 MG TAB.SR.24H PO SCH (16:02)
[2019-06-09] MEDS ORDERED: CEFEPIME 2 GM/D5W RTU 2 GM/50 ML RTUPB IV SCH (18:00)
[2019-06-09] MEDS: METHYLPREDNISOLONE INJ 125 MG/2 ML SDV IV SCH (18:52)
--- NOTE | 2019-06-09 19:30 | PDOC H&P ---
History of Present Illness Admission Date/PCP: 06/09/19 02:53 HIPOLITO MCKEON MD History of Present Illness: ALEJANDRO MINOR is a 78 year old female,, She has history of chronic obstructive pulmonary disease, she recently had right knee arthroplasty, she came to the emergency room for evaluation of, altered mental status, hypoxemia, in the emergency room CT chest angiography was done there was concern for pulmonary embolism because she just recently had right knee replacement, CT angiogram of the chest demonstrated no filling defect to suggest pulmonary embolus, there is airspace opacities of the lateral right upper lobe having a slightly nodular appearance but likely reflecting pneumonia. The arterial blood gas on FiO2 24%, pH 7.43, PO2 59.2, PCO2 43.4, bicarbonate 28.0 Past Medical History Cardiac Medical History: Reports: Atrial Fibrillation, Hypertension Pulmonary Medical History: Reports: Chronic Obstructive Pulmonary Disease (COPD), Pneumonia - last one couple weeks ago GI Medical History: Reports: Gastroesophageal Reflux Disease Musculoskeltal Medical History: Reports: Arthritis - knee Psychiatric Medical History: Denies: Bipolar Disorder, Depression, Post Traumatic Stress Disorder Past Surgical History Past Surgical History: Reports: Cholecystectomy, Hysterectomy, Orthopedic Surgery - Status post total knee arthroplasty June 06, 2012 Social History Lives with: Family Smoking Status: Former Smoker Electronic Cigarette use?: No Frequency of Alcohol Use: None Hx Recreational Drug Use: No Drugs: None Hx Prescription Drug Abuse: No Family History Family History: Reviewed & Not Pertinent Parental Family History Reviewed: Yes Children Family History Reviewed: Yes Sibling(s) Family History Reviewed.: Yes Medication/Allergy Home Medications: Apixaban [Eliquis 5 mg Tablet] 5 mg PO Q12 06/09/19 Budesonide/Formoterol Fumarate [Symbicort Hfa 160-4.5 Mcg Inhaler 6 gm] 1 puff IH ASDIR PRN 06/09/19 Fluticasone/Umeclidin/Vilanter [Trelegy 100-62.5-25 Mcg Ellipta 14 Dose/Dpi] 1 puff IH DAILY 06/09/19 Lisinopril [Prinivil 40 mg Tablet] 40 mg PO Q12 06/09/19 Metoprolol Succinate [Toprol Xl] 200 mg PO DAILY 06/09/19 Oxycodone HCl [Oxy-Ir 5 mg Tablet] 5 mg PO Q6HP PRN 06/09/19 Allergies/Adverse Reactions: Penicillins Allergy (Mild, Verified 06/06/19 05:48) Hives Review of Systems Constitutional: ABSENT: chills, fever(s), headache(s), weight gain, weight loss Eyes: ABSENT: visual disturbances Ears: ABSENT: hearing changes Cardiovascular: ABSENT: as per HPI, chest pain, dyspnea on exertion, edema, orthropnea, palpitations, other Respiratory: PRESENT: cough, dyspnea, sputum Gastrointestinal: ABSENT: abdominal pain, constipation, diarrhea, hematemesis, hematochezia, nausea, vomiting Genitourinary: ABSENT: dysuria, hematuria Musculoskeletal: ABSENT: joint swelling Integumentary: ABSENT: rash, wounds Neurological: ABSENT: abnormal gait, abnormal speech, confusion, dizziness, focal weakness, syncope Psychiatric: ABSENT: anxiety, depression, homidical ideation, suicidal ideation Endocrine: ABSENT: cold intolerance, heat intolerance, menstrual abnormalities, polydipsia, polyuria Hematologic/Lymphatic: ABSENT: easy bleeding, easy bruising, lymphadenopathy Physical Exam Vital Signs: Temp Pulse Resp BP Pulse Ox 97.8 F 77 20 112/44 L 95 06/09/19 15:06 06/09/19 15:06 06/09/19 15:06 06/09/19 15:06 06/09/19 15:06 Intake & Output 06/08/19 06/09/19 06/10/19 06:59 06:59 06:59 Intake Total 50 1020 Balance 50 1020 Weight 72.9 kg General appearance: PRESENT: mild distress Head exam: PRESENT: atraumatic, normocephalic Eye exam: PRESENT: conjunctiva pink, EOMI, PERRLA Ear exam: PRESENT: normal external ear exam Mouth exam: PRESENT: moist, tongue midline Neck exam: PRESENT: full ROM Respiratory exam: PRESENT: wheezes Cardiovascular exam: PRESENT: RRR, +S1, +S2 Pulses: PRESENT: normal dorsalis pedis pul, +2 pedal pulses bilateral Vascular exam: PRESENT: normal capillary refill GI/Abdominal exam: PRESENT: normal bowel sounds, soft Rectal exam: PRESENT: deferred Extremities exam: PRESENT: joint swelling - Right knee swelling , Neurological exam: PRESENT: alert, CN II-XII grossly intact Psychiatric exam: PRESENT: appropriate affect, normal mood Skin exam: PRESENT: dry, intact, warm Results Laboratory Results: 06/08/19 18:26 06/08/19 18:26 06/08/19 06/08/19 06/09/19 18:26 20:05 06:00 Carbonic Acid 1.31 HCO3/H2CO3 Ratio 21:1 ABG pH 7.43 ABG pCO2 43.4 ABG pO2 59.2 L ABG HCO3 28.0 H ABG O2 Saturation 91.2 L ABG Base Excess 3.3 FiO2 24% Sodium 137.8 Potassium 3.7 Chloride 103 Carbon Dioxide 28 Anion Gap 7 BUN 11 Creatinine 0.70 Est GFR ( Amer) > 60 Glucose 124 H Calcium 8.9 Total Bilirubin 1.0 AST 21 Alkaline Phosphatase 96 Total Protein 6.2 L Albumin 3.5 Urine Color YELLOW Urine Appearance CLEAR Urine pH 6.0 Ur Specific [place] 1.018 Urine Protein NEGATIVE Urine Glucose (UA) NEGATIVE Urine Ketones TRACE H Urine Blood MODERATE H Urine Nitrite Ur Leukocyte Esterase Urine WBC (Auto) Urine RBC (Auto) 9 06/09/19 06:31 Carbonic Acid HCO3/H2CO3 Ratio ABG pH ABG pCO2 ABG pO2 ABG HCO3 ABG O2 Saturation ABG Base Excess FiO2 Sodium Potassium Chloride Carbon Dioxide Anion Gap BUN Creatinine Est GFR ( Amer) Glucose Calcium Total Bilirubin AST Alkaline Phosphatase Total Protein Albumin Urine Color YELLOW Urine Appearance CLEAR Urine pH 7.0 Ur Specific [place] 1.030 Urine Protein NEGATIVE Urine Glucose (UA) 150 H Urine Ketones 20 H Urine Blood SMALL H Urine Nitrite NEGATIVE Ur Leukocyte Esterase NEGATIVE Urine WBC (Auto) 0 Urine RBC (Auto) 3 06/09/19 06/09/19 06:27 06:27 Creatine Kinase 37 CK-MB (CK-2) < 0.22 NT-Pro-B Natriuret Pep 1280 H Impressions: Chest X-Ray 06/08/19 21:19 IMPRESSION: Emphysema without pneumonia. Chest/Abdomen CTA 06/08/19 23:48 IMPRESSION: Negative for pulmonary embolus. Nodular airspace opacity of the right upper lobe likely reflecting pneumonia. Recommend follow-up to ensure resolution. Areas of bronchial wall thickening in the posterior right lung base with subsegmental atelectasis and minor pleural thickening. Stable tortuosity of the descending thoracic aorta with probable ulcerative plaque formation TECHNICAL DOCUMENTATION: Quality ID # [id number]: Final reports with documentation of one or more dose reduction techniques (e.g., Automated exposure control, adjustment of the mA and/or kV according to patient size, use of iterative reconstruction technique) copyright 2011 [employer]- All Rights Reserved Assessment & Plan - Diagnosis (1) Acute hypoxemic respiratory failure Is this a current diagnosis for this admission?: Yes Plan: Continue oxygen therapy via nasal cannula at 2 L/min, Patient not presently requiring noninvasive positive pressure ventilation,The acute hypoxemic respiratory failure is probably due to acute COPD exacerbation (2) Right upper lobe pneumonia Qualifiers: Pneumonia type: due to unspecified organism Qualified Code(s): J18.9 - Pneumonia, unspecified organism Is this a current diagnosis for this admission?: Yes Plan: Patient to be treated for pneumonia with antibiotic to cover community-acquired pathogens (3) Acute exacerbation of chronic obstructive pulmonary disease Is this a current diagnosis for this admission?: Yes Plan: CTA chest demonstrated airspace opacities of the lateral right upper lobe IV is slightly nodular appearance, she will be treated with antibiotic to cover community-acquired pathogens,Start IV Solu-Medrol, 125 mg IV every 8 hours
[2019-06-09] MEDS: APIXABAN 5 MG TABLET PO SCH (22:46)
[2019-06-10] MEDS: OXYCODONE HCL IR 5 MG TABLET PO PRN ×2 (03:31→19:46)
[2019-06-10] MEDS: LEVOFLOXACIN 750 MG/D5W RTU 750 MG/150 ML RTUPB IV SCH (06:11)
[2019-06-10] MEDS: METHYLPREDNISOLONE INJ 125 MG/2 ML SDV IV SCH ×3 (06:11→21:50)
[2019-06-10] MEDS: RINGERS SOLUTION,LACTATED 1,000 ML IV PRN ×2 (07:09→19:46)
[2019-06-10 07:24] LABS: HEMOGLOBIN 10.7 g/dL (12.0-15.5); MEAN CORPUSCULAR HEMOGLOBIN 30.7 pg (27.0-33.4); MEAN CORPUSCULAR HGB CONC 34.5 g/dL (32.0-36.0); MEAN CORPUSCULAR VOLUME 89 fl (80-97); PLATELET COUNT 317 10^3/uL (150-450); RED BLOOD COUNT 3.49 10^6/uL (3.72-5.28); RED CELL DISTRIBUTION WIDTH 15.1 % (11.5-14.0); WHITE BLOOD COUNT 10.3 10^3/uL (4.0-10.5)
[2019-06-10 07:47] LABS: ALBUMIN 2.9 g/dL (3.5-5.0); ALKALINE PHOSPHATASE 77 U/L (38-126); ANION GAP 7 (5-19); ASPARTATE AMINO TRANSFERASE 16 U/L (14-36); BILIRUBIN,DIRECT 0.2 mg/dL (0.0-0.4); BILIRUBIN,TOTAL 0.6 mg/dL (0.2-1.3); BLOOD UREA NITROGEN 12 mg/dL (7-20); CARBON DIOXIDE 28 mmol/L (22-30); CHLORIDE 104 mmol/L (98-107); GLUCOSE 146 mg/dL (75-110); POTASSIUM 3.7 mmol/L (3.6-5.0); TOTAL PROTEIN 5.5 g/dL (6.3-8.2)
[2019-06-10 07:57] LABS: ABSOLUTE LYMPHOCYTES# (MANUAL) 0.3 10^3/uL (0.5-4.7); ABSOLUTE MONOCYTES # (MANUAL) 0.1 10^3/uL (0.1-1.4); BASOPHILS % (MANUAL) 0 % (0-2); EOSINOPHILS % (MANUAL) 0 % (0-6); LYMPHOCYTES % (MANUAL) 3 % (13-45); MONOCYTES % (MANUAL) 1 % (3-13); SEGMENTED NEUTROPHILS % (MAN) 96 % (42-78); TOTAL CELLS COUNTED 100
[2019-06-10 07:58] LABS: ANISOCYTOSIS SLIGHT; OVALOCYTES SLIGHT; PLATELET COMMENT ADEQUATE; POIKILOCYTOSIS SLIGHT; TOXIC GRANULATION 1+
[2019-06-10] MEDS ORDERED: (PENDING PHARMACY ID) (Metoprolol Succinate [Toprol Xl] 200 MG) PO SCH (10:00)
[2019-06-10] MEDS: CEFEPIME 2 GM/D5W RTU 2 GM/50 ML RTUPB IV SCH (11:15)
[2019-06-10] MEDS: METOPROLOL SUCCINATE 50 MG TAB.SR.24H PO SCH (11:16)
[2019-06-10] MEDS: PANTOPRAZOLE SODIUM 40 MG TABLET.DR PO SCH (11:16)
[2019-06-10] MEDS: LISINOPRIL 10 MG TABLET PO SCH ×2 (11:16→21:49)
[2019-06-10] MEDS: APIXABAN 5 MG TABLET PO SCH ×2 (11:16→21:49)
[2019-06-10] MEDS: FLUTICASONE/UMECLIDIN/VILANTER 100-62.5-25 MCG/DOSE IH SCH (11:17)
--- NOTE | 2019-06-10 20:21 | PDOC PROGRESS REPORT ---
Subjective Progress Note for:: 06/10/19 Subjective:: .Patient seen by the bedside, she is much better, she would like to go home Reason For Visit: PNUEMONIA,HYPOXIA,ALTERED MENTAL STATUS Physical Exam Vital Signs: Temp Pulse Resp BP Pulse Ox 97.3 F 64 18 132/59 H 97 06/10/19 16:00 06/10/19 16:00 06/10/19 16:00 06/10/19 16:00 06/10/19 16:00 Intake & Output 06/09/19 06/10/19 06/11/19 06:59 06:59 06:59 Intake Total 50 2330 1683 Balance 50 2330 1683 Weight 72.9 kg 71.6 kg General appearance: PRESENT: no acute distress Eye exam: PRESENT: PERRLA Respiratory exam: PRESENT: clear to auscultation shital Cardiovascular exam: PRESENT: +S1, +S2 GI/Abdominal exam: PRESENT: soft Neurological exam: PRESENT: alert, CN II-XII grossly intact Results Laboratory Results: 06/10/19 06:40 06/10/19 06:40 06/10/19 06/10/19 06:40 06:40 WBC 10.3 RBC 3.49 L Hgb 10.7 L Hct 31.0 L MCV 89 MCH 30.7 MCHC 34.5 RDW 15.1 H Plt Count 317 Seg Neutrophils % Not Reportable Sodium 139.0 Potassium 3.7 Chloride 104 Carbon Dioxide 28 Anion Gap 7 BUN 12 Creatinine 0.55 Est GFR ( Amer) > 60 Glucose 146 H Calcium 9.0 Total Bilirubin 0.6 AST 16 Alkaline Phosphatase 77 Total Protein 5.5 L Albumin 2.9 L 06/09/19 06/09/19 06:27 06:27 Creatine Kinase 37 CK-MB (CK-2) < 0.22 NT-Pro-B Natriuret Pep 1280 H Impressions: Chest X-Ray 06/08/19 21:19 IMPRESSION: Emphysema without pneumonia. Chest/Abdomen CTA 06/08/19 23:48 IMPRESSION: Negative for pulmonary embolus. Nodular airspace opacity of the right upper lobe likely reflecting pneumonia. Recommend follow-up to ensure resolution. Areas of bronchial wall thickening in the posterior right lung base with subsegmental atelectasis and minor pleural thickening. Stable tortuosity of the descending thoracic aorta with probable ulcerative plaque formation TECHNICAL DOCUMENTATION: Quality ID # 436: Final reports with documentation of one or more dose reduction techniques (e.g., Automated exposure control, adjustment of the mA and/or kV according to patient size, use of iterative reconstruction technique) copyright 2011 [employer]- All Rights Reserved Assessment & Plan - Diagnosis (1) Acute hypoxemic respiratory failure Is this a current diagnosis for this admission?: Yes Plan: Continue oxygen via nasal cannula (2) Right upper lobe pneumonia Qualifiers: Pneumonia type: due to unspecified organism Qualified Code(s): J18.9 - Pneumonia, unspecified organism Is this a current diagnosis for this admission?: Yes (3) Acute exacerbation of chronic obstructive pulmonary disease Is this a current diagnosis for this admission?: Yes Plan: Patient presently on IV Solu-Medrol, bronchodilators, antibiotic she has responded very well to treatment, she would like to go home tomorrow - Time Time Spent with patient: 35 or more minutes Level of Care: MEDICAL
--- NOTE | 2019-06-10 20:34 | PDOC DISCHARGE SUMMARY ---
Impression - Admit/DC Date/PCP Admission Date/Primary Care Provider: 06/09/19 02:53 HIPOLITO MCKEON MD Discharge Date: 06/11/19 - Discharge Diagnosis (1) Acute hypoxemic respiratory failure Is this a current diagnosis for this admission?: Yes (2) Right upper lobe pneumonia Is this a current diagnosis for this admission?: Yes (3) Acute exacerbation of chronic obstructive pulmonary disease Is this a current diagnosis for this admission?: Yes - Additional Information Referrals: HIPOLITO MCKEON MD [Primary Care Provider] - 06/17/19 1:45 pm Prescriptions: Levofloxacin [Levaquin 750 mg Tablet] 750 mg PO DAILY #10 tab Prednisone 40 mg PO DAILY #5 tablet Home Medications: Apixaban [Eliquis 5 mg Tablet] 5 mg PO Q12 06/09/19 Budesonide/Formoterol Fumarate [Symbicort HFA 160-4.5 mcg Inhaler 6 gm] 1 puff IH ASDIR PRN 06/09/19 Fluticasone/Umeclidin/Vilanter [Trelegy 100-62.5-25 Mcg Ellipta 14 Dose/Dpi] 1 puff IH DAILY 06/09/19 Lisinopril [Prinivil 40 mg Tablet] 40 mg PO Q12 06/09/19 Metoprolol Succinate [Toprol Xl] 200 mg PO DAILY 06/09/19 Oxycodone HCl [Oxy-Ir 5 mg Tablet] 5 mg PO Q6HP PRN 06/09/19 Levofloxacin [Levaquin 750 mg Tablet] 750 mg PO DAILY #10 tab 06/10/19 Prednisone 40 mg PO DAILY #5 tablet 06/10/19 History of Present Illiness History of Present Illness: ALEJANDRO MINOR is a 78 year old female,, She has history of chronic obstructive pulmonary disease, she recently had right knee arthroplasty, she came to the emergency room for evaluation of, altered mental status, hypoxemia, in the emergency room CT chest angiography was done there was concern for pulmonary embolism because she just recently had right knee replacement, CT angiogram of the chest demonstrated no filling defect to suggest pulmonary embolus, there is airspace opacities of the lateral right upper lobe having a slightly nodular appearance but likely reflecting pneumonia. The arterial blood gas on FiO2 24%, pH 7.43, PO2 59.2, PCO2 43.4, bicarbonate 28.0 Hospital Course Hospital Course: Patient was treated with IV antibiotic, IV Solu-Medrol, bronchodilators, she responded to treatment. She was admitted for the management of acute hypoxemic respiratory failure due to acute COPD exacerbation and pneumonia, She wants to go home she feels she has improved Physical Exam Vital Signs: Temp Pulse Resp BP Pulse Ox 97.3 F 64 18 132/59 H 97 06/10/19 16:00 06/10/19 16:00 06/10/19 16:00 06/10/19 16:00 06/10/19 16:00 Intake & Output 06/09/19 06/10/19 06/11/19 06:59 06:59 06:59 Intake Total 50 2330 1683 Balance 50 2330 1683 Weight 72.9 kg 71.6 kg General appearance: PRESENT: no acute distress Eye exam: PRESENT: PERRLA Respiratory exam: PRESENT: clear to auscultation shital Cardiovascular exam: PRESENT: +S1, +S2 GI/Abdominal exam: PRESENT: soft Neurological exam: PRESENT: alert, CN II-XII grossly intact Results Laboratory Results: WBC 10.3 10^3/uL (4.0-10.5) 06/10/19 06:40 RBC 3.49 10^6/uL (3.72-5.28) L 06/10/19 06:40 Hgb 10.7 g/dL (12.0-15.5) L 06/10/19 06:40 Hct 31.0 % (36.0-47.0) L 06/10/19 06:40 MCV 89 fl (80-97) 06/10/19 06:40 MCH 30.7 pg (27.0-33.4) 06/10/19 06:40 MCHC 34.5 g/dL (32.0-36.0) 06/10/19 06:40 RDW 15.1 % (11.5-14.0) H 06/10/19 06:40 Plt Count 317 10^3/uL (150-450) 06/10/19 06:40 Lymph % (Auto) Not Reportable 06/10/19 06:40 [place] % (Auto) Not Reportable 06/10/19 06:40 Eos % (Auto) Not Reportable 06/10/19 06:40 Baso % (Auto) Not Reportable 06/10/19 06:40 Absolute Neuts (auto) Not Reportable 06/10/19 06:40 Absolute Lymphs (auto) Not Reportable 06/10/19 06:40 Absolute Monos (auto) Not Reportable 06/10/19 06:40 Absolute Eos (auto) Not Reportable 06/10/19 06:40 Absolute Basos (auto) Not Reportable 06/10/19 06:40 Total Counted 100 06/10/19 06:40 Seg Neutrophils % Not Reportable 06/10/19 06:40 Seg Neuts % (Manual) 96 % (42-78) H 06/10/19 06:40 Lymphocytes % (Manual) 3 % (13-45) L 06/10/19 06:40 Monocytes % (Manual) 1 % (3-13) L 06/10/19 06:40 Eosinophils % (Manual) 0 % (0-6) 06/10/19 06:40 Basophils % (Manual) 0 % (0-2) 06/10/19 06:40 Abs Neuts (Manual) 9.9 10^3/uL (1.7-8.2) H 06/10/19 06:40 Abs Lymphs (Manual) 0.3 10^3/uL (0.5-4.7) L 06/10/19 06:40 Abs Monocytes (Manual) 0.1 10^3/uL (0.1-1.4) 06/10/19 06:40 Absolute Eos (Manual) 0.0 10^3/uL (0.0-0.6) 06/10/19 06:40 Abs Basophils (Manual) 0.0 10^3/uL (0.0-0.2) 06/10/19 06:40 Toxic Granulation 1+ 06/10/19 06:40 Dohle Bodies PRESENT 06/10/19 06:40 Platelet Comment ADEQUATE 06/10/19 06:40 Poikilocytosis SLIGHT 06/10/19 06:40 Anisocytosis SLIGHT 06/10/19 06:40 Ovalocytes SLIGHT 06/10/19 06:40 Carbonic Acid 1.31 mmol/L (1.05-1.35) 06/09/19 06:00 HCO3/H2CO3 Ratio 21:1 06/09/19 06:00 ABG pH 7.43 (7.35-7.45) 06/09/19 06:00 ABG pCO2 43.4 mmHg (35-45) 06/09/19 06:00 ABG pO2 59.2 mmHg (80-100) L 06/09/19 06:00 ABG HCO3 28.0 mmol/L (20-24) H 06/09/19 06:00 ABG Total CO2 29.4 mmol/L (21-25) H 06/09/19 06:00 ABG O2 Saturation 91.2 % (94-98) L 06/09/19 06:00 ABG Base Excess 3.3 mmol/L 06/09/19 06:00 FiO2 24% 06/09/19 06:00 Sodium 139.0 mmol/L (137-145) 06/10/19 06:40 Potassium 3.7 mmol/L (3.6-5.0) 06/10/19 06:40 Chloride 104 mmol/L (98-107) 06/10/19 06:40 Carbon Dioxide 28 mmol/L (22-30) 06/10/19 06:40 Anion Gap 7 (5-19) 06/10/19 06:40 BUN 12 mg/dL (7-20) 06/10/19 06:40 Creatinine 0.55 mg/dL (0.52-1.25) 06/10/19 06:40 Est GFR ( Amer) > 60 (>60) 06/10/19 06:40 Est GFR (MDRD) Non-Af > 60 (>60) 06/10/19 06:40 Glucose 146 mg/dL (75-110) H 06/10/19 06:40 Hemoglobin A1c % 6.0 % (4.7-6.0) 06/10/19 06:40 Calcium 9.0 mg/dL (8.4-10.2) 06/10/19 06:40 Total Bilirubin 0.6 mg/dL (0.2-1.3) 06/10/19 06:40 Direct Bilirubin 0.2 mg/dL (0.0-0.4) 06/10/19 06:40 Neonat Total Bilirubin Not Reportable 06/10/19 06:40 Neonat Direct Bilirubin Not Reportable 06/10/19 06:40 Neonat Indirect Bili Not Reportable 06/10/19 06:40 AST 16 U/L (14-36) 06/10/19 06:40 ALT 15 U/L (<35) 06/10/19 06:40 Alkaline Phosphatase 77 U/L (38-126) 06/10/19 06:40 Creatine Kinase 37 U/L (30-135) 06/09/19 06:27 CK-MB (CK-2) < 0.22 ng/mL (<4.55) 06/09/19 06:27 NT-Pro-B Natriuret Pep 1280 pg/mL (<450) H 06/09/19 06:27 Total Protein 5.5 g/dL (6.3-8.2) L 06/10/19 06:40 Albumin 2.9 g/dL (3.5-5.0) L 06/10/19 06:40 Urine Color YELLOW 06/09/19 06:31 Urine Appearance CLEAR 06/09/19 06:31 Urine pH 7.0 (5.0-9.0) 06/09/19 06:31 Ur Specific [place] 1.030 06/09/19 06:31 Urine Protein NEGATIVE mg/dL (NEGATIVE) 06/09/19 06:31 Urine Glucose (UA) 150 mg/dL (NEGATIVE) H 06/09/19 06:31 Urine Ketones 20 mg/dL (NEGATIVE) H 06/09/19 06:31 Urine Blood SMALL (NEGATIVE) H 06/09/19 06:31 Urine Nitrite NEGATIVE (NEGATIVE) 06/09/19 06:31 Urine Nitrite (Reflex) NEGATIVE (NEGATIVE) 06/08/19 20:05 Urine Bilirubin NEGATIVE (NEGATIVE) 06/09/19 06:31 Urine Urobilinogen NEGATIVE mg/dL (<2.0) 06/09/19 06:31 Ur Leukocyte Esterase NEGATIVE (NEGATIVE) 06/09/19 06:31 Leukocyte Esterase Rfl NEGATIVE (NEGATIVE) 06/08/19 20:05 Urine WBC (Auto) 0 /HPF 06/09/19 06:31 Urine RBC (Auto) 3 /HPF 06/09/19 06:31 U Hyaline Cast (Auto) 1 /LPF 06/09/19 06:31 Urine WBC (Reflex) 1 /HPF 06/08/19 20:05 Squamous Epi Cells Auto 2 /HPF 06/09/19 06:31 Urine Mucus (Auto) RARE /LPF 06/09/19 06:31 Urine Ascorbic Acid NEGATIVE (NEGATIVE) 06/09/19 06:31 06/09/19 06:27 CK-MB (CK-2) < 0.22 NT-Pro-B Natriuret Pep 1280 H Impressions: Chest X-Ray 06/08/19 21:19 IMPRESSION: Emphysema without pneumonia. Chest/Abdomen CTA 06/08/19 23:48 IMPRESSION: Negative for pulmonary embolus. Nodular airspace opacity of the right upper lobe likely reflecting pneumonia. Recommend follow-up to ensure resolution. Areas of bronchial wall thickening in the posterior right lung base with subsegmental atelectasis and minor pleural thickening. Stable tortuosity of the descending thoracic aorta with probable ulcerative plaque formation TECHNICAL DOCUMENTATION: Quality ID # 436: Final reports with documentation of one or more dose reduction techniques (e.g., Automated exposure control, adjustment of the mA and/or kV according to patient size, use of iterative reconstruction technique) copyright 2011 [employer]- All Rights Reserved Stroke Is this a Stroke Patient?: No Acute Heart Failure - Is this a Heart Failure Patient?: No
[2019-06-10] MEDS: CEFEPIME HCL 2 GM in DEXTROSE 5%-WATER 50 ML IV SCH (21:49)
[2019-06-11] MEDS: OXYCODONE HCL IR 5 MG TABLET PO PRN (04:10)
[2019-06-11] MEDS: LEVOFLOXACIN 750 MG/D5W RTU 750 MG/150 ML RTUPB IV SCH (05:15)
[2019-06-11] MEDS: METHYLPREDNISOLONE INJ 125 MG/2 ML SDV IV SCH (05:16)
[2019-06-11 07:11] LABS: HEMATOCRIT 30.6 % (36.0-47.0); HEMOGLOBIN 10.4 g/dL (12.0-15.5); MEAN CORPUSCULAR HEMOGLOBIN 30.1 pg (27.0-33.4); MEAN CORPUSCULAR HGB CONC 33.9 g/dL (32.0-36.0); MEAN CORPUSCULAR VOLUME 89 fl (80-97); PLATELET COUNT 290 10^3/uL (150-450); RED BLOOD COUNT 3.44 10^6/uL (3.72-5.28); RED CELL DISTRIBUTION WIDTH 15.2 % (11.5-14.0); WHITE BLOOD COUNT 8.4 10^3/uL (4.0-10.5)
[2019-06-11 07:14] LABS: ALBUMIN 2.7 g/dL (3.5-5.0); ALKALINE PHOSPHATASE 64 U/L (38-126); ANION GAP 6 (5-19); ASPARTATE AMINO TRANSFERASE 16 U/L (14-36); BILIRUBIN,DIRECT 0.1 mg/dL (0.0-0.4); BILIRUBIN,TOTAL 0.5 mg/dL (0.2-1.3); BLOOD UREA NITROGEN 21 mg/dL (7-20); CALCIUM 8.7 mg/dL (8.4-10.2); CARBON DIOXIDE 27 mmol/L (22-30); CHLORIDE 104 mmol/L (98-107); GLUCOSE 155 mg/dL (75-110); POTASSIUM 3.8 mmol/L (3.6-5.0); TOTAL PROTEIN 5.3 g/dL (6.3-8.2)
[2019-06-11 08:25] LABS: ABSOLUTE LYMPHOCYTES# (MANUAL) 0.4 10^3/uL (0.5-4.7); ABSOLUTE MONOCYTES # (MANUAL) 0.2 10^3/uL (0.1-1.4); BASOPHILS % (MANUAL) 0 % (0-2); EOSINOPHILS % (MANUAL) 0 % (0-6); LYMPHOCYTES % (MANUAL) 5 % (13-45); MONOCYTES % (MANUAL) 2 % (3-13); SEGMENTED NEUTROPHILS % (MAN) 93 % (42-78); TOTAL CELLS COUNTED 100
[2019-06-11 08:26] LABS: ANISOCYTOSIS SLIGHT; PLATELET COMMENT ADEQUATE
[2019-06-11] MEDS: APIXABAN 5 MG TABLET PO SCH (09:13)
[2019-06-11] MEDS: METOPROLOL SUCCINATE 50 MG TAB.SR.24H PO SCH (09:13)
[2019-06-11] MEDS: CEFEPIME HCL 2 GM in DEXTROSE 5%-WATER 50 ML IV SCH (09:14)
[2019-06-11] MEDS: LISINOPRIL 10 MG TABLET PO SCH (09:14)
[2019-06-11] MEDS: PANTOPRAZOLE SODIUM 40 MG TABLET.DR PO SCH (09:14)
[2019-06-11] MEDS: FLUTICASONE/UMECLIDIN/VILANTER 100-62.5-25 MCG/DOSE IH SCH (09:54)
[2019-06-11 10:43] VITALS: BP 124/52
== END 2019-06-11 11:38 | disposition home or self-care (01) | DRG 189 ==
LOC: ER 18:08 → EH 06-09 02:53 → 4S 06-09 03:51
PROVIDERS: ADMIT Internal Medicine; ATTEND Internal Medicine
DX: J96.01 Acute respiratory failure with hypoxia (principal); J18.9 Pneumonia, unspecified organism; J43.9 Emphysema, unspecified; I10 Essential (primary) hypertension; I48.91 Unspecified atrial fibrillation; K21.9 Gastro-esophageal reflux disease without esophagitis; Z96.651 Presence of right artificial knee joint; Z79.899 Other long term (current) drug therapy; Z87.891 Personal history of nicotine dependence; Z79.891 Long term (current) use of opiate analgesic; Z79.01 Long term (current) use of anticoagulants; Z88.0 Allergy status to penicillin
CPT/HCPCS: 36415; 36600; 71046; 71275; 80053; 81001; 82550; 82553; 82803; 83036; 83880; 85025; 87040; 87086; 87088; 87186; 93005; 93010; 94640; 96374; 99285; J0692; J0696; J1650; J1956; J2930; J3490; J7060; J7120; J7620

== ENCOUNTER → 2019-07-26 | Outpatient (CLI) | payer MEDICARE ==
[2019-07-26 11:22] LABS: ABSOLUTE EOSINOPHILS # (AUTO) 0.1 10^3/uL (0.0-0.6); ABSOLUTE LYMPHOCYTES (AUTO) 1.1 10^3/uL (0.5-4.7); ABSOLUTE MONOCYTES (AUTO) 0.5 10^3/uL (0.1-1.4); BASOPHILS % (AUTO) 0.7 % (0-2); EOSINOPHILS % (AUTO) 1.9 % (0-6); HEMOGLOBIN 13.5 g/dL (12.0-15.5); LYMPHOCYTES % (AUTO) 18.8 % (13-45); MEAN CORPUSCULAR HEMOGLOBIN 29.3 pg (27.0-33.4); MEAN CORPUSCULAR VOLUME 89 fl (80-97); MONOCYTES % (AUTO) 8.8 % (3-13); PLATELET COUNT 301 10^3/uL (150-450); RED BLOOD COUNT 4.61 10^6/uL (3.72-5.28); RED CELL DISTRIBUTION WIDTH 15.4 % (11.5-14.0); SEGMENTED NEUTROPHILS % (AUTO) 69.8 % (42-78); TOTAL CELLS COUNTED % (AUTO) 100 %; WHITE BLOOD COUNT 5.8 10^3/uL (4.0-10.5)
[2019-07-26 11:28] LABS: APPEARANCE,URINE SLIGHTLY-CLOUDY; BILIRUBIN,URINE NEGATIVE (NEGATIVE); COLOR,URINE YELLOW; GLUCOSE, URINE NEGATIVE (NEGATIVE); KETONES,URINE NEGATIVE (NEGATIVE); LEUKOCYTE ESTERASE,URINE NEGATIVE (NEGATIVE); NITRITE,URINE NEGATIVE (NEGATIVE); PROTEIN,URINE NEGATIVE (NEGATIVE); URINE SPECIFIC GRAVITY 1.018; UROBILINOGEN,URINE NEGATIVE mg/dL (<2.0)
[2019-07-26 11:46] LABS: ANION GAP 11 (5-19); BLOOD UREA NITROGEN 10 mg/dL (7-20); CALCIUM 9.6 mg/dL (8.4-10.2); CARBON DIOXIDE 27 mmol/L (22-30); CHLORIDE 102 mmol/L (98-107); GLUCOSE 95 mg/dL (75-110); POTASSIUM 3.9 mmol/L (3.6-5.0)
--- NOTE | 2019-07-26 13:04 | RADIOLOGY REPORT (SQ) ---
EXAM DESCRIPTION: CHEST PA/LATERAL COMPLETED DATE/TIME: 07/26/2019 11:03 am REASON FOR STUDY: PRE-OP COMPARISON: 06/08/2019 EXAM PARAMETERS: NUMBER OF VIEWS: two views TECHNIQUE: Digital Frontal and Lateral radiographic views of the chest acquired. RADIATION DOSE: NA LIMITATIONS: none FINDINGS: LUNGS AND PLEURA: No opacities, masses or pneumothorax. No pleural effusion. MEDIASTINUM AND HILAR STRUCTURES: No masses or contour abnormalities. HEART AND VASCULAR STRUCTURES: Heart normal size. No evidence for failure. BONES: No acute findings. HARDWARE: None in the chest. OTHER: No other significant finding. IMPRESSION: NO SIGNIFICANT RADIOGRAPHIC FINDING IN THE CHEST. TECHNICAL DOCUMENTATION: JOB ID: [id number] [employer]- All Rights Reserved Reading location - IP/workstation name: [email or web address]
--- NOTE | 2019-07-27 14:26 | EKG REPORT ---
SEVERITY:- NORMAL ECG - SINUS RHYTHM : Confirmed by: Rob Mace 27-Jul-2019 14:25:25
== END ==
LOC: OD 10:32
PROVIDERS: ATTEND Orthopaedic Surgery
DX: Z01.812 Encounter for preprocedural laboratory examination (principal); Z01.811 Encounter for preprocedural respiratory examination; Z01.810 Encounter for preprocedural cardiovascular examination; M16.11 Unilateral primary osteoarthritis, right hip
CPT/HCPCS: 36415; 71046; 80048; 81001; 85025; 93005; 93010

== ENCOUNTER 2019-08-03 05:34 | Inpatient (IN) | payer MEDICARE ==
[~2019-08-03 05:34] MED LIST changes: +CEFAZOLIN INJ 1 GM VIAL IV PRN; -LIDOCAINE 0.5% INJ-PF (5 MG/ML) 50 ML SDV SUBCUT PRN; -RINGERS SOLUTION,LACTATED 1,000 ML IV PRN; -VANCOMYCIN HCL 1,000 MG in DEXTROSE 5%-WATER 250 ML IV PRN; +VANCOMYCIN HCL 1,000 MG in NORMAL SALINE 250 ML IV PRN
[2019-08-03] MEDS ORDERED: PANTOPRAZOLE SODIUM 20 MG TABLET.DR PO ONE (05:52)
[2019-08-03] MEDS ORDERED: OXYCODONE HCL SR 10 MG TABLET PO ONE (05:52)
[2019-08-03] MEDS ORDERED: MIDAZOLAM 2 MG/2 ML INJ ONE (07:05)
[2019-08-03] MEDS ORDERED: PROPOFOL INJ 200 MG/20 ML VIAL IV ONE (07:06)
[2019-08-03] MEDS ORDERED: BUPIVACAINE INJ/PF LIPOSOME/PF 266 MG/20 ML SDV ONE (07:12)
[2019-08-03] MEDS ORDERED: TRANEXAMIC ACID INJ/PF 1,000 MG/10 ML SDV ONE (07:20)
[2019-08-03] MEDS ORDERED: BUPIVACAINE INJ/PF LIPOSOME/PF 266 MG/20 ML SDV INJ ONE (08:14)
[2019-08-03] MEDS ORDERED: DIPHENHYDRAMINE HCL 50 MG/ML VIAL IV PRN ×2 (08:24→08:38)
[2019-08-03] MEDS ORDERED: ZOLPIDEM TARTRATE 5 MG TABLET PO PRN (08:24)
[2019-08-03] MEDS ORDERED: MAG HYDROX/AL HYDROX/SIMETH SUSP 30 ML UDCUP PO PRN (08:24)
[2019-08-03] MEDS ORDERED: RINGERS SOLUTION,LACTATED 1,000 ML IV PRN (08:24)
[2019-08-03] MEDS ORDERED: ONDANSETRON 4 MG TAB.RAPDIS PO PRN (08:24)
[2019-08-03] MEDS ORDERED: OXYCODONE HCL IR 5 MG TABLET PO PRN (08:24)
[2019-08-03] MEDS ORDERED: ACETAMINOPHEN 325 MG TABLET PO PRN (08:24)
[2019-08-03] MEDS ORDERED: ONDANSETRON HCL INJ/PF 4 MG/2 ML SDV IV PRN (08:24)
--- NOTE | 2019-08-03 08:29 | Operative Report ---
Operative Report DATE OF SURGERY: 08/03/19 PREOPERATIVE DIAGNOSIS: Right hip arthritis OPERATION: Right hip arthroplasty SURGEON: FRANKLYN CANTRELL ANESTHESIA: Spinal TISSUE REMOVED OR ALTERED: Femoral head to pathology ESTIMATED BLOOD LOSS: 75 PROCEDURE: Implants used: Femur: Mary Accolade 2 stem, size 3 Acetabular shell: Mary 50 mm titanium to shell Liner: 36 mm flat cross-link polyethylene liner Head: 36 mm chrome cobalt head -5 neck The patient is placed in a left lateral decubitus position on the operating table. The right lower extremity and hindquarter is prepped and draped in a sterile fashion. A curvilinear incision was made over the greater trochanter a posterior approach the hip was taken. The femoral head is dislocated and the femoral neck transected using an oscillating saw. Attention was next turned to the acetabulum. Soft tissues cleared off the acetabulum using electrocautery. The acetabulum was then prepared using a series of hemispherical reamers until a 50 millimeters reamer is seated. Subsequently a 50 millimeters Mary titanium hemispherical shell is impacted into position and secured with one screw. A standard flat 36 millimeters cross- link liner is impacted into the shell. Attention was next turned to the femur. Access is gained to the femoral canal using a box osteotome to the piriformis fossa. The femur is then prepared using a series of broaches until a number 3 broach is seated. A trial reduction was now performed using a 36 millimeters head with -5 neck. Preoperative leg length was recreated and is excellent anterior posterior stability. A decision was made to proceed with the above construct. All trial implants were removed. The wound is irrigated with pulsed lavage. A number 3 stem is impacted into the femoral canal. A trial reduction was again performed with a 36 mm head and a -5 neck. Findings as previously. The hip was dislocated one last time and the final chrome-cobalt head is impacted onto the trunnion. The hip was reduced. Wound is copiously irrigated with pulsed lavage. Sent closed in layers using interrupted Vicryl followed by erick. A sterile dressing is applied and the patient's returned to recovery room in satisfactory patient.
[2019-08-03] MEDS ORDERED: MORPHINE SULFATE 10 MG/ML INJ IV PRN (08:38)
[2019-08-03] MEDS ORDERED: FENTANYL CITRATE INJ/PF 100 MCG/2 ML AMPUL IV PRN (08:38)
[2019-08-03] MEDS ORDERED: PROMETHAZINE HCL INJ 25 MG/1 ML VIAL IV PRN (08:38)
--- NOTE | 2019-08-03 09:31 | RADIOLOGY REPORT (SQ) ---
EXAM DESCRIPTION: PELVIS AP COMPLETED DATE/TIME: 08/03/2019 9:17 am REASON FOR STUDY: Post Op Long Cassette in PACU M16.11 UNILATERAL PRIMARY OSTEOARTHRITIS, RIGHT HI P COMPARISON: None. NUMBER OF VIEWS: Two views. TECHNIQUE: An AP view of the pelvis and an AP view of the right hip were obtained. LIMITATIONS: None. FINDINGS: MINERALIZATION: Normal. HIPS: Status post right LENI; the hardware is in anatomic alignment. There is no periprosthetic fract ure. PELVIS AND SACRUM: The sacrum is obscured by overlying bowel. There is no pelvic fracture. PUBIS AND ISCHIUM: The ilioischial and iliopectineal lines are intact. There is no diastasis of the pubic symphysis. LOWER LUMBAR SPINE: Spondylitic findings at L5-S1. SOFT TISSUES: Subcutaneous emphysema lateral to the right femur. OTHER: No other finding. IMPRESSION: Uncomplicated right LENI hardware with expected immediate postoperative findings. TECHNICAL DOCUMENTATION: JOB ID: [id number] [employer]- All Rights Reserved Reading location - IP/workstation name: [email or web address]
[2019-08-03] MEDS ORDERED: (PENDING PHARMACY ID) (Metoprolol Succinate [Toprol Xl] 200 MG) PO SCH (10:00)
[2019-08-03] MEDS ORDERED: TRANEXAMIC ACID INJ/PF 1,000 MG/10 ML SDV IV ONE ×3 (10:00→15:15)
[2019-08-03] MEDS ORDERED: ONDANSETRON HCL INJ/PF 4 MG/2 ML SDV ONE (11:36)
[2019-08-03] MEDS: FLUTICASONE/UMECLIDIN/VILANTER 100-62.5-25 MCG/DOSE IH SCH (13:47)
[2019-08-03] MEDS: OXYCODONE HCL SR 10 MG TABLET PO SCH ×2 (13:47→22:43)
[2019-08-03] MEDS ORDERED: PHENYLEPHRINE HCL INJ/PF 10 MG/1 ML SDV ONE (14:10)
[2019-08-03] MEDS: IBUPROFEN 800 MG in NORMAL SALINE 250 ML IV SCH ×2 (15:05→22:43)
[2019-08-03] MEDS: SENNOSIDES/DOCUSATE 8.6-50 MG 1 EACH TABLET PO SCH (18:14)
[2019-08-03] MEDS ORDERED: VANCOMYCIN HCL 1,000 MG in NORMAL SALINE 250 ML IV ONE (20:30)
[2019-08-03] MEDS: LISINOPRIL 10 MG TABLET PO SCH (22:44)
[2019-08-03] MEDS: APIXABAN 5 MG TABLET PO SCH (22:44)
[2019-08-04] MEDS ORDERED: PANTOPRAZOLE SODIUM 40 MG TABLET.DR PO SCH (06:00)
[2019-08-04] MEDS: IBUPROFEN 800 MG in NORMAL SALINE 250 ML IV SCH (06:19)
[2019-08-04 06:31] LABS: HEMATOCRIT 32.5 % (36.0-47.0); HEMOGLOBIN 10.9 g/dL (12.0-15.5); MEAN CORPUSCULAR HEMOGLOBIN 29.6 pg (27.0-33.4); MEAN CORPUSCULAR HGB CONC 33.7 g/dL (32.0-36.0); MEAN CORPUSCULAR VOLUME 88 fl (80-97); PLATELET COUNT 262 10^3/uL (150-450); RED BLOOD COUNT 3.69 10^6/uL (3.72-5.28); RED CELL DISTRIBUTION WIDTH 15.8 % (11.5-14.0); WHITE BLOOD COUNT 5.8 10^3/uL (4.0-10.5)
[2019-08-04 06:36] LABS: ANION GAP 8 (5-19); BLOOD UREA NITROGEN 11 mg/dL (7-20); CALCIUM 8.7 mg/dL (8.4-10.2); CARBON DIOXIDE 23 mmol/L (22-30); CHLORIDE 106 mmol/L (98-107); GLUCOSE 112 mg/dL (75-110); POTASSIUM 3.7 mmol/L (3.6-5.0)
--- NOTE | 2019-08-04 06:53 | PDOC DISCHARGE SUMMARY ---
Impression - Admit/DC Date/PCP Admission Date/Primary Care Provider: 08/03/19 05:34 HIPOLITO MCKEON MD Discharge Date: 08/04/19 - Discharge Diagnosis (1) Arthritis of right hip Is this a current diagnosis for this admission?: Yes - Additional Information Resuscitation Status: Full Code Discharge Diet: Regular Discharge Activity: Balance Activity w/Rest, No tub bath Referrals: FRANKLYN CANTRELL MD [ACTIVE STAFF] - 08/16/19 9:45 am Home Medications: Apixaban [Eliquis 5 mg Tablet] 5 mg PO Q12 06/09/19 Budesonide/Formoterol Fumarate [Symbicort HFA 160-4.5 mcg Inhaler 6 gm] 1 puff IH ASDIR PRN 06/09/19 Fluticasone/Umeclidin/Vilanter [Trelegy 100-62.5-25 Mcg Ellipta 14 Dose/Dpi] 1 puff IH DAILY 06/09/19 Lisinopril [Prinivil 40 mg Tablet] 40 mg PO Q12 06/09/19 Metoprolol Succinate [Toprol Xl] 200 mg PO DAILY 06/09/19 Acetaminophen [Tylenol] 975 mg PO PRN PRN 08/03/19 Umeclidinium Brm/Vilanterol Tr [Anoro Ellipta 62.5-25 Mcg INH] 1 each IH PRN PRN 08/03/19 History of Present Illiness History of Present Illness: ALEJANDRO MINOR is a 78 year old female Patient is a 78-year-old female with progressive right hip pain and functional disability second osteoarthritis was admitted for elective right hip arthroplasty. Hospital Course Hospital Course: Patient is admitted through the operating where she undergoes an uncomplicated right hip arthroplasty. She is returned to floor in satisfactory condition. She ambulates 150 feet with physical therapy on the day of surgery. Physical Exam Vital Signs: Temp Pulse Resp BP Pulse Ox 36.2 C 67 17 108/64 99 08/03/19 23:46 08/03/19 23:46 08/03/19 23:46 08/03/19 23:46 08/03/19 23:46 Intake & Output 08/02/19 08/03/19 08/04/19 06:59 06:59 06:59 Intake Total 250 2250 Output Total 100 Balance 250 2150 Weight 69.5 kg General appearance: PRESENT: no acute distress, mild distress Head exam: PRESENT: normocephalic Respiratory exam: PRESENT: unlabored Cardiovascular exam: PRESENT: RRR Pulses: PRESENT: +1 pedal pulses bilateral GI/Abdominal exam: PRESENT: soft Rectal exam: PRESENT: deferred Musculoskeletal exam: PRESENT: other - Right hip dressing clean dry and intact. Leg lengths are equal. Distal neurovascular examination is intact. Neurological exam: PRESENT: alert, awake, oriented to person, oriented to place, oriented to time, oriented to situation. ABSENT: motor sensory deficit Skin exam: PRESENT: dry, intact, warm. ABSENT: cyanosis, rash Results Laboratory Results: WBC 5.8 10^3/uL (4.0-10.5) 08/04/19 06:00 RBC 3.69 10^6/uL (3.72-5.28) L 08/04/19 06:00 Hgb 10.9 g/dL (12.0-15.5) L 08/04/19 06:00 Hct 32.5 % (36.0-47.0) L 08/04/19 06:00 MCV 88 fl (80-97) 08/04/19 06:00 MCH 29.6 pg (27.0-33.4) 08/04/19 06:00 MCHC 33.7 g/dL (32.0-36.0) 08/04/19 06:00 RDW 15.8 % (11.5-14.0) H 08/04/19 06:00 Plt Count 262 10^3/uL (150-450) 08/04/19 06:00 Sodium 136.9 mmol/L (137-145) L 08/04/19 06:00 Potassium 3.7 mmol/L (3.6-5.0) 08/04/19 06:00 Chloride 106 mmol/L (98-107) 08/04/19 06:00 Carbon Dioxide 23 mmol/L (22-30) 08/04/19 06:00 Anion Gap 8 (5-19) 08/04/19 06:00 BUN 11 mg/dL (7-20) 08/04/19 06:00 Creatinine 0.60 mg/dL (0.52-1.25) 08/04/19 06:00 Est GFR ( Amer) > 60 (>60) 08/04/19 06:00 Est GFR (MDRD) Non-Af > 60 (>60) 08/04/19 06:00 Glucose 112 mg/dL (75-110) H 08/04/19 06:00 Calcium 8.7 mg/dL (8.4-10.2) 08/04/19 06:00 Blood Type O POSITIVE 08/03/19 06:00 Antibody Screen NEGATIVE 08/03/19 06:00 Impressions: Pelvis X-Ray 08/03/19 08:26 IMPRESSION: Uncomplicated right LENI hardware with expected immediate postoperative findings. Plan Plan of Treatment: Patient be discharged home on a weightbearing as tolerated basis with home health services and DME. Follow-up with Dr. Cantrell [facility] for surgery in 2 weeks for wound inspection. Stroke Is this a Stroke Patient?: No Stroke Pt being discharged on Anti-thrombolytic therapy?: Yes Acute Heart Failure - Is this a Heart Failure Patient?: No
[2019-08-04 09:56] VITALS: BP 128/73
[2019-08-04] MEDS ORDERED: METOPROLOL SUCCINATE 50 MG TAB.SR.24H PO SCH (10:00)
[2019-08-04] MEDS: PRENATAL VITAMIN W DHA CAPSULE PO SCH ×2 (10:10→10:16)
[2019-08-04] MEDS: OXYCODONE HCL SR 10 MG TABLET PO SCH (10:10)
[2019-08-04] MEDS: LISINOPRIL 10 MG TABLET PO SCH (10:10)
[2019-08-04] MEDS: SENNOSIDES/DOCUSATE 8.6-50 MG 1 EACH TABLET PO SCH (10:10)
[2019-08-04] MEDS: APIXABAN 5 MG TABLET PO SCH (10:13)
[2019-08-04] MEDS: FLUTICASONE/UMECLIDIN/VILANTER 100-62.5-25 MCG/DOSE IH SCH (10:16)
== END 2019-08-04 11:45 | disposition home or self-care (01) | DRG 470 ==
LOC: INOR 05:34 → 5 13:12
PROVIDERS: ADMIT Orthopaedic Surgery; ATTEND Orthopaedic Surgery
PROC: 0SR902Z Replacement of Right Hip Joint with Metal on Polyethylene Synthetic Substitute, Open Approach (ICD-10-PCS; principal; 2019-08-03 07:30)
DX: M16.11 Unilateral primary osteoarthritis, right hip (principal); I10 Essential (primary) hypertension; F41.9 Anxiety disorder, unspecified; Z88.0 Allergy status to penicillin; Z79.899 Other long term (current) drug therapy; M06.9 Rheumatoid arthritis, unspecified; J44.9 Chronic obstructive pulmonary disease, unspecified; Z87.891 Personal history of nicotine dependence; Z96.652 Presence of left artificial knee joint; Z90.710 Acquired absence of both cervix and uterus; Z82.49 Family history of ischemic heart disease and other diseases of the circulatory system
CPT/HCPCS: 36415; 72170; 80048; 85027; 86850; 86900; 86901; 88304; 88311; 94799; C9290; J1741; J2250; J2370; J2405; J2704; J3370; J3490; J7050; S0119

== ENCOUNTER → 2020-07-24 | Outpatient (CLI) | payer MEDICARE ==
--- NOTE | 2020-07-24 12:56 | RADIOLOGY REPORT (SQ) ---
EXAM DESCRIPTION: CT HEAD WITHOUT IMAGES COMPLETED DATE/TIME: 07/24/2020 12:04 pm REASON FOR STUDY: (R51.9)HEADACHE, UNSPECIFIED R51.9 HEADACHE, UNSPECIFIED COMPARISON: 2016 TECHNIQUE: Axial images acquired through the brain without intravenous contrast. Images reviewed wi th bone, brain and subdural windows. Additional sagittal and coronal reconstructions were generated. Images stored on PACS. All CT scanners at this facility use dose modulation, iterative reconstruction, and/or weight based d osing when appropriate to reduce radiation dose to as low as reasonably achievable (ALARA). [facility]: Dose Right [facility]: CareDose [facility]: Dose Right [facility]: Teradose 4D [facility]: FlexMinder RADIATION DOSE: CT Rad equipment meets quality standard of care and radiation dose reduction techniq ues were employed. CTDIvol: 48.8 mGy. DLP: 859 mGy-cm. mGy. LIMITATIONS: None. FINDINGS: VENTRICLES: Normal size and contour. CEREBRUM: No masses. No hemorrhage. No midline shift. No evidence for acute infarction. Extensive areas of low density in the white matter most likely chronic small vessel ischemic changes. CEREBELLUM: No masses. No hemorrhage. No alteration of density. No evidence for acute infarction. EXTRAAXIAL SPACES: No fluid collections. No masses. ORBITS AND GLOBE: No intra- or extraconal masses. Normal contour of globe without masses. CALVARIUM: No fracture. PARANASAL SINUSES: No fluid or mucosal thickening. SOFT TISSUES: No mass or hematoma. OTHER: No other significant finding. IMPRESSION: CHRONIC MICROVASCULAR ISCHEMIA. NO ACUTE IMAGING FINDINGS IN THE BRAIN. EVIDENCE OF ACUTE STROKE: NO. COMMENT: Quality ID # 436: Final reports with documentation of one or more dose reduction techniques (e.g., Automated exposure control, adjustment of the mA and/or kV according to patient size, use of iterative reconstruction technique) TECHNICAL DOCUMENTATION: JOB ID: [id number] 2010 [employer] All Rights Reserved Reading location - IP/workstation name: [email or web address]
== END ==
LOC: RAD 11:36
PROVIDERS: ATTEND Internal Medicine
DX: R51.9 Headache, unspecified (principal)
CPT/HCPCS: 70450